=== PATIENT | female | born 1945 | race Caucasian/White ===

== ENCOUNTER 2016-11-05 07:27 | Inpatient (IN) | payer MEDICARE, MEDICAID ==
[2016-11-05] VITALS (16 sets, daily range): BP systolic 101–144; BP diastolic 62–102; PULSE 60–107; RESP 13–20; O2SAT 96–98
[~2016-11-05] VITALS: Ht 152.4 cm; Wt 52.4 kg
[~2016-11-05 07:27] MED LIST: AMLO10TA3 PO; CALC0.257 PO; ERGO500050 PO; FOLI0.8T2 PO; FUR20 PO
[2016-11-05 08:10] LABS: BASOPHILS % (AUTO) 0.4 % (0-3); MONOCYTES % (AUTO) 9.4 % (4-12); Mean Corpuscular Hemoglobin 30.7 pg (27.0-35.0); NEUTROPHILS % (AUTO) 78.6 % (40-74); Platelet Count 135 bil/L (150-400)
--- NOTE | 2016-11-05 08:18 | ED.REPORT ---
HPI-General Illness Date of Service Nov 05, 2016 ED Provider: Bee Loving MD Patient is a 71-year-old female with a history of CVA, end stage renal failure, HTN, dementia and bipolar from [facility] who reports to the ED via EMS due to aggressive behavior toward the staff. Patient presents alert and denies pain. Patient was discharged from the hospital over a month ago to [facility] assisted [facility]. She was sent to the ED today for evaluation of increasingly aggressive behavior. Nursing Notes Stated Complaint: BEHAVIORAL ISSUES Chief Complaint: General Complaint Nursing Notes Reviewed: Yes Allergies: Coded Allergies: Penicillins (Verified Allergy, Severe, ?, 11/05/16) Scheduled Amlodipine (Amlodipine) 10 Mg Tablet 10 MG PO DAILY Ascorbic Acid (Vitamin C) 250 Mg Tab.chew 250 MG PO DAILY Ferrous Sulfate (Ferrous Sulfate) 325 Mg Tablet 325 MG PO DAILY Hydroxyzine HCl (HydrOXYzine Hcl) 50 Mg Tablet 50 MG PO q [address] (Pantoprazole [address]) 40 Mg Tablet.dr 40 MG PO BID Sucralfate (Sucralfate) 1 Gm Tablet 1 GM PO q6 hours Scheduled PRN Acetaminophen (Acetaminophen) 325 Mg Capsule 325 MG PO q6 hours PRN PRN For Pain Bisacodyl (Dulcolax Rectal) 10 Mg Supp.rect 10 MG RC DAILY PRN PRN For Constipation Dextran 70/Hypromellose/Pf (Artificial Tears Drops) 1 Each Droperette 2 DROP BOTH_EYES prn PRN PRN dry eyes Magnesium Hydroxide (Milk of Magnesia) 400 Mg/5 Ml Oral.susp 400 MG PO DAILY PRN PRN For Constipation Na Phos,M-B/Na Phos,Di-Ba (Fleet Enema) 133 Ml Enema 133 ML RC DAILY PRN PRN For Constipation Ondansetron (Zofran) 4 Mg Tablet 4 MG PO q6 hours PRN PRN For Nausea General Time Seen by MD: 07:50 Chief Complaint Other (aggressive behavior) Hx Obtained From: Patient Arrived By: Ambulance Sudden in Onset?: Yes Onset Occurred: Just prior to arrival Symptom Duration: Since onset Severity: Current: No pain currently Recent Healthcare: Recent doctor visit, Recent hospitalization Similar Sx Previous: Yes Past Medical History Past Medical History Notes: Nephrology: Guru Araya duodenal ulcer 09/29 on EGD, normal colonoscopy Past Medical History Anxiety Probable dementia Renal failure - 14% function as of late August, Bipolar Reports: Hypertension Reports: Depression Past Surgical History left carpal tunnel release parathyroid surgery Reports: Appendectomy, Tonsillectomy Reports: Pacemaker insertion, Tubal ligation Smoking History Former Smoker Social History Alcohol Use: Denies alcohol use Drug Use: Denies drug use Ambulatory Status Independent Review of Systems per son: no problems with dementia at baseline reports VM visits with eval for bleeding prevoiusly Full Review of Systems GI: Denies: Abdominal pain Psychiatric: Reports: Hostile (aggressive behavior toward assisted living staff ) Complete sys rev & neg: except as marked. Physical Exam Vital Signs Vital Signs Date Time Temp Pulse Resp B/P Pulse Ox O2 Delivery O2 Flow Rate FiO2 11/05/16 13:38 60 13 118/67 11/05/16 13:00 60 17 123/92 Room Air 11/05/16 12:30 60 14 110/65 11/05/16 12:00 60 18 124/62 11/05/16 11:00 60 17 116/68 11/05/16 10:30 60 20 144/102 11/05/16 10:00 60 19 134/70 96 Room Air 11/05/16 09:30 62 19 138/76 98 Room Air 11/05/16 07:37 35.2 60 16 130/65 97 Room Air Initial VS: Reviewed Head / Eyes: Atraumatic, Normocephalic, PERRL ENT: Mucous membranes moist, Conjunctiva normal, No scleral icterus Neck: Supple, Non-tender, Full range of motion Respiratory: Breath sounds normal, Clear to auscultation, No respiratory distress Abdomen / GI: Soft, Non-tender, No guarding, No rebound, No distention Skin: Warm, Dry, No cyanosis General/Constitutional: Awake, Alert Alertness: Positive: Confused (doesn't know why she is at the hospital) Behavior: Positive: Aggressive pacemaker insertion site is clean Cardiovascular: Heart rate NL, Regular rhythm, Heart sounds NL, No gallop, No murmurs, No rubs Lower Ext Edema: Positive: Bilateral 1+ Interpretation & Diagnostics Interpretation & Diagnostics: chronically elevated creat, K and low h/h Lab Results Interpretation Result Diagram: 11/05/16 0755 11/05/16 0755 Test 11/05/16 07:50 11/05/16 07:55 11/05/16 10:30 Urine Color Straw (YELLOW) Urine Appearance Hazy (CLEAR,HAZY) Urine pH 6.0 (5.0-8.0) Urine Specific [place] 1.020 (1.003-1.035) Urine Protein 100mg/dL (NEG,TRACE) Urine Glucose (UA) Negativemg/dL (NEGATIVE) Urine Ketones Negativemg/dL (NEGATIVE) Urine Occult Blood Negative (NEGATIVE) Urine Nitrite Negative (NEGATIVE) Urine Bilirubin Negative (NEGATIVE) Urine Urobilinogen Normalmg/dL (NORMAL) Urine Leukocyte Esterase Negative (NEGATIVE) Urine RBC 0-2/hpf (0-2) Urine WBC 0-5/hpf (0-5) Urine Epithelial Cells Occasional/hpf (NONE-MOD) Urine Crystals Amorphous urates (NONE Urine Bacteria None/hpf (NONE-FEW) Urine Hyaline Casts Occasional/lpf (NONE) Urine Granular Casts None seen (NONE SEEN) Urine Waxy Casts None seen (NONE SEEN) Urine Red Blood Cell Casts None seen (NONE SEEN) Urine White Blood Cell Casts None seen (NONE SEEN) Urine Mucus None seen (None Seen) Urine Trichomonas None seen (NONE SEEN) Urine Yeast None (NONE SEEN) Urinalysis Comment Transitional epi Urine Culture Reflexed Not indicated White Blood Count 5.4th/mm3 (3.8-10.1) Red Blood Count 2.51mil/mm3 (3.90-5.20) Hemoglobin 7.7g/dL (12.0-15.6) Hematocrit 23.6% (35.0-46.0) Mean Corpuscular Volume 94.0fL (81-100) Mean Corpuscular Hemoglobin 30.7pg (27.0-35.0) Mean Corpuscular Hemoglobin Concent 32.6% (32.0-37.0) Red Cell Distribution Width 17.5% (12.3-15.4) Platelet Count 135bil/L (150-400) Neutrophils (%) (Auto) 78.6% (40-74) Lymphocytes (%) (Auto) 8.9% (14-46) Monocytes (%) (Auto) 9.4% (4-12) Eosinophils (%) (Auto) 2.0% (0-5) Basophils (%) (Auto) 0.4% (0-3) Sodium Level 136mEq/L (134-144) Potassium Level 6.1mEq/L (3.5-5.2) Chloride Level 106mEq/L (97-108) Carbon Dioxide Level 19mmol/L (18-29) Blood Urea Nitrogen 48mg/dL (8-27) Creatinine 3.65mg/dL (0.57-1.00) Estimat Glomerular Filtration Rate 18mL/min (>59) Glucose Level 90mg/dL (60-99) Lactic Acid Level 0.6mmol/L (0.4-2.0) Calcium Level 9.9mg/dL (8.5-10.1) Total Bilirubin 0.2mg/dL (0.0-1.2) Aspartate Amino Transf (AST/SGOT) 20U/L (0-50) Alanine Aminotransferase (ALT/SGPT) 17U/L (0-32) Alkaline Phosphatase 153U/L (25-165) Total Protein 5.3g/dL (6.4-8.4) Albumin 3.2g/dL (3.4-5.0) Troponin T 0.032ug/L (0.0-0.011) ECG Interpretation ECG Interpretation: paced Time: 08:01 Interpreted by: ED physician Normal ECG Interpretation: Normal rate (60) X-Ray Chest Interpretation Chest Xray Interpretation: IMPRESSION: No acute cardiopulmonary disease. Dictated by: Obdulio Galdamez [facility] Interpreted: Anisha Boston MD on 11/05/2016 at 9:27 Transcribed by: DON on 11/05/2016 at 9:27 View: Portable Interpretation / Wet Read by: Interpret - Radiologist Re-Eval/Medical Decision Med Decision/Clinical Course Discharge from the hospital over a month ago to [facility]. Sent to the emergency room by [facility] for evaluation of increasingly aggressive behavior. She has worsening renal failure with a creatinine up to 3.65 which is only minimally higher than her baseline. Hyperkalemia at 6.1 she has a paced EKG the EKG is not helpful in determining physiologic severity of her hyperkalemia. She has received fluid resuscitation IV calcium gluconate IV insulin and IV glucose. Chronically elevated troponin of 0.032 Acute on top of chronic anemia. Had been previously admitted for rectal bleeding. She denies rectal bleeding at this point the dementia is certainly part of her constellation of complaints. H/H 7.7 and 23.6. comparison is hbg 9.7 on 09/29 after in patient transfusions. Need to be admitted to follow the anemia see if she needs additional blood replacement, hyperkalemia and further evaluation of the renal dysfunction to see if she actually will need to be dialyzed at any point Time of Eval: 13:00 Patient Status: Condition unchanged Re-Evaluation/Progress Note: Pt rechecked. Informed pt of need for admission. Pt understands and agrees with plan for admission. All questions addressed. Consultation : Consulted With: Hospitalist Call Returned at: 15:20 Grey Inspector: Will see patient, Agrees with plan, Accepts admit Counseled Regarding: Diagnosis, Lab results, Need for admission Discharge & Departure Primary Impression: Hyperkalemia Additional Impressions: Anemia Anemia type: unspecified type Qualified Code: D64.9 - Anemia, unspecified Renal insufficiency Dementia Dementia type: unspecified type Dementia behavioral disturbance: with behavioral disturbance Qualified Code: F03.91 - Unspecified dementia with behavioral disturbance Duodenal bulb ulcer Ruled Out: UTI (urinary tract infection) Disposition: ADMITTED TO HOSPITAL Discharge Condition All VS Reviewed: Yes Condition: Stable Referrals: NOPCP (PCP) Scribe Attestation Portion of this note were transcribed by Leona Agarwal. I, Dr. Loving, personally performed the history, physical exam, and medical decision-making: I reviewed and confirmed the accuracy for the information in the transcribed note. Signed by: jeremy Tracy, 11/05/16 1350 Bee Loving MD Nov 05, 2016 08:18 LEONA AGARWAL Nov 05, 2016 08:32
[2016-11-05 08:48] LABS: APPEARANCE,URINE HAZY (CLEAR,HAZY); COLOR,URINE STRAW (YELLOW); OCCULT BLOOD,URINE NEGATIVE (NEGATIVE); UROBILINOGEN,URINE NORMAL (NORMAL)
--- NOTE | 2016-11-05 09:28 | DRSVH ---
PROCEDURE: X-RAY CHEST ONE VIEW, PORTABLE ([id number]) INDICATIONS: ALTERED MENTAL STATUS TECHNIQUE: One view of the chest was acquired. COMPARISON: [facility], CR, XR CHEST 1VW (PORTABLE), 09/27/2016, 15:33. FINDINGS: Surgical changes and devices: Stable positioning of dual chamber left cardiac pacer. Surgical clips again seen projected over the lower neck. Lungs and pleura: No pleural effusions or pneumothorax. Lungs are clear. Mediastinum: Mediastinal contours appear normal. Heart size is prominent. Bones and chest wall: No suspicious bony lesions. Overlying soft tissues appear unremarkable. IMPRESSION: No acute cardiopulmonary disease. Dictated by: Obdulio Galdamez [facility] Interpreted: Anisha Boston MD on 11/05/2016 at 9:27 Transcribed by: DON on 11/05/2016 at 9:27 Approved by: Anisha Boston M.D. on 11/05/2016 at 9:59
[2016-11-05] MEDS ORDERED: Insulin Human REGular-Omnicell 100 Unit/mL IV ONE (10:20)
[2016-11-05] MEDS ORDERED: Calcium GLUCOnate 10% (Gm) 1 Gm/10 mL Inj IVPUSH PRN (10:20)
[2016-11-05] MEDS ORDERED: 0.9% Sodium Chloride 1,000 ML IV ONE (10:20)
[2016-11-05] MEDS ORDERED: PANT40TA3 PO (13:43)
[2016-11-05] MEDS ORDERED: ACET325C PO (13:43)
[2016-11-05] MEDS ORDERED: DEXT1DRO8 BOTH_EYES (13:43)
[2016-11-05] MEDS ORDERED: ASCO250T7 PO (13:43)
[2016-11-05] MEDS ORDERED: BISA10SU61 RC (13:43)
[2016-11-05] MEDS ORDERED: MAGN400O4 PO (13:43)
[2016-11-05] MEDS ORDERED: SUCR1TAB PO (13:43)
[2016-11-05] MEDS ORDERED: ONDA4TAB6 PO (13:43)
[2016-11-05] MEDS ORDERED: HYDR50TA76 PO (13:43)
[2016-11-05] MEDS ORDERED: NA P133E23 RC (13:43)
[2016-11-05] MEDS ORDERED: FERR-83 PO (13:43)
[2016-11-05] MEDS ORDERED: Polyethylene Glycol (PEG) 17 Gm Powder PO PRN (15:55)
[2016-11-05] MEDS ORDERED: Ondansetron 2 mg/mL 2 mL Inj IVPUSH PRN (15:55)
[2016-11-05] MEDS ORDERED: Alum-Mag Hydrox-Simeth 30 mL Suspension PO PRN (15:55)
[2016-11-05] MEDS: Sodium Chloride LOK Flush 10 mL Syringe IVFLUSH SCH (16:48)
[2016-11-05 17:01] LABS: BASOPHILS % (AUTO) 0.2 % (0-3); EOSINOPHILS % (AUTO) 1.2 % (0-5); Mean Corpuscular Volume 94.8 fL (81-100); NEUTROPHILS % (AUTO) 82.6 % (40-74); Platelet Count 120 bil/L (150-400)
[2016-11-05] MEDS ORDERED: Dextrose 5% 0.45% NaCl 1,000 ML IV ONE (17:15)
--- NOTE | 2016-11-05 17:30 | PCM.HPMED ---
Subjective Date of Service Nov 05, 2016 Primary Provider: Admitting Physician: Primary Care Physician: Mis Attending Physician: Admit Status: From the Emergency Department Chief Complaint: Altered Mental Status Possible lower GI Bleed History of Present Illness: Patient is a 71-year-old female with a history of CVA, end stage renal failure, HTN, dementia and bipolar from [facility] who reports to the ED via EMS due to aggressive behavior toward the staff. Patient presents alert and denies pain. Patient was treated in hospital over a month ago for pulsatile bleeding duodenal ulcer, patient was transferred to [place] for surgical repair and later discharged to [facility] assisted [facility]. She was sent to the ED today for evaluation of increasingly aggressive behavior. Patient interviewed at bedside, patient stated that she was feeling bad and has not been treated well at [facility], she is hungry and wants to eat dinner. Additionally patient stated that she had a recent fall, 4 days ago, in her wheelchair where she hit the back of her head. Patient denies abdominal pain, diarrhea, shortness of breath, chest pain, nausea, vomiting. Review of Systems: ROS negative except as mentioned in HPI Allergies Coded Allergies: Penicillins (Verified Allergy, Severe, ?, 11/05/16) Home Medications Amlodipine 10 mg PO QD Furosemide 20 mg PO QD PMH Anxiety Probable dementia Renal failure - 14% function as of late August, Bipolar Hypertension Depression Surgical History left carpal tunnel release parathyroid surgery Appendectomy, Tonsillectomy Pacemaker insertion, Tubal ligation Family History No family history of DM, CVD, HTN Social History Occupation: retired Hx Alcohol Use: Yes (history of alcohol abuse, quit 28 years ago) Hx Substance Use: No Hx Tobacco Use: Yes (30 years smoking history, quit 2 years ago) Smoking Status: Former Smoker Exam Vital Signs Vital Sign - Last Date Time Temp Pulse Resp B/P Pulse Ox O2 Delivery O2 Flow Rate FiO2 11/05/16 13:38 60 13 118/67 11/05/16 13:00 Room Air 11/05/16 10:00 96 11/05/16 07:37 35.2 Exam General: Alert, Oriented X3, Confused, No Acute Distress Head: Normocephalic, atraumatic. External ears normal. Eyes: PERRLA, EOMI. Anicteric sclerae. Mucosa pink Mouth: Mouth Normal, Mucous Membranes dry/[place], dentures Neck: Neck supple with full range of motion. Non tender, no stiffness Chest & Lungs: Coarse breath sounds bilaterally with no crackles, wheezes, or rhonchi. Cardiovascular: Regular Rate/Rhythm, Normal S1, Normal S2, No Murmurs/Rubs/ Gallops Abdomen: Non-tender, Non-distended, No masses, Normoactive bowel tones, Soft Rectal: Multiple hemorrhoids visualized at 11 o'clock and 10 o'clock, no active bleeding noted Musculoskeletal: Normal Range of Motion, strength 5/5 all extremities Extremities: No cyanosis/clubbing/edema bilaterally Neurological: Grossly Neurologically Intact, Normal Speech, follows commands, Psych: Agitated, confused, labile mood, Lab and Diagnostics Result Diagram: 11/05/16 0755 11/05/16 0755 Assessment & Plan Patient is a 71 y.o. F presented to Admitted for treatment of altered mental status, r/o lower GI bleed. 1. Anemia, Present on admission, acute on chronic, ongoing - Patient has history of upper GI bleed, [facility] admitted to [facility] 09/24/16, treated surgically at [facility] - Considering DDx consider Diverticulosis, Upper GI bleed, r/o lower GI bleed Hgb 7.7 Hct 23 - Admit to hospital, SCDs for DVT prophylaxis, Keep patient NPO - Cross and type only - Repeat H/H Q4 after morning CBC - Repeat CBC w/ diff, BMP in AM - Given patient's history GI consulted 2. Acute on chronic Kidney injury, present on admission, ongoing - Stage IV- V kidney disease being followed by Dr. Araya, - Monitor I & O, patient currently making urine, 250 cc out in ED - UA, negative - repeat BMP in AM - Hold Furosemide and amlodipine until patient is stable - Patient's risk consulting treasury director is Dr. Araya, will Consult Nephrology, we appreciate input on this case. 3. Hyperglycemia, acute, present on admission - Likely related to acute on chronic kidney injury - Patient given Kayexalate in ED - Given 10 U insulin - repeat BMP ordered 4. Hypoglycemia, acute, present on admission - Patient BG in ED 41, given one half amp of D50, BG still low at 50 - Start D5 1/2 NS at 75 mls/hr, once 5. Elevated troponin, chronic, present on admission - Chronically elevated - Repeat trend troponin Q8 6. Chronic GERD, Present on admission - IV Pantoprazole 40 mg BID CODE STATUS: Discussed resuscitation status with patient, patient wishes to be full code. DVT prophylaxis: SCD, Patient status: Patient was admitted under inpatient status with expected length of stay greater than 2 midnights due to severity present in symptoms, risk of adverse event, and complexity of treatment plan. . Pain Evaluation: Adequate Pain Control VTE Mechanical Devices: Intermittant Pneumatic CD Resuscitation Status: CPR: Attempt Resuscitation Attending Statement The patient was seen and examined together with Dr. Callahan on 11/05/2016 and I agree with the history, exam and plan as outlined in the note above. . XAVIER CALLAHAN DO Nov 05, 2016 17:30 Og Villanueva MD Nov 06, 2016 17:21
--- NOTE | 2016-11-05 17:59 | PCM.CHPMED ---
Subjective Date of Service: Nov 05, 2016 Provider requesting consult: XAVIER CALLAHAN DO Primary Physician: Admitting Physician: Primary Care Physician: Mis Attending Physician: Chief Complaint: Chief Complaint: Confusion History of Present Illness: Mrs. Jody Harrell is a 71 year old lady with history of recent pacemaker insertion, CKD stage IV, dementia, hypertension, and depression, recent hospitalization in September for acute upper GI bleed who presents with altered mental status. She was staying at [facility] and began acting aggressively towards staff, and was brought to the ED. She was somewhat able to answer questions and denied nausea, vomiting, diarrhea, or abdominal pain. Vital signs were stable, Hb was 7.7 on arrival compared to 9.7 on discharge . Follow up Hb was 7.8 about 8 hours later. K was 6.1, BUN 48, Cr 3.65. Bilirubin and LFTs were normal. CXR was negative. Rectal exam in ED showed brown stool with no dark stool or blood. Guaiac negative. EGD on 09/29/16 showed a large, 2 cm duodenal first portion ulcer with recent stigmata of bleed and visible vessel/posterior duodenal bulb, status post argon plasma coagulation and Gold Probe thermocoagulation with a large, pulsatile vessel that was seen within the ulcer itself. Status post 3 cc gastrointestinal spot tattoo was deployed. Colonoscopy was normal with no blood seen in the terminal ileum. She was transported to [facility] for further treatment. Review of Systems: Comprehensive review of systems conducted and was negative except for the pertinent positives listed above. PMH Past Medical History Anxiety Probable dementia Renal failure - 14% function as of late August, Bipolar Hypertension Depression Surgical History left carpal tunnel release parathyroid surgery Appendectomy Tonsillectomy Pacemaker insertion Tubal ligation Allergies: Coded Allergies: Penicillins (Verified Allergy, Severe, ?, 11/05/16) Family History Family History No family history of DM, CVD, HTN Social History Hx Alcohol Use: Yes (history of alcohol abuse, quit 28 years ago)Hx Substance Use: NoHx Tobacco Use: Yes (30 years smoking history, quit 2 years ago) Smoking Status: Former Smoker Exam Vital Signs Vital Sign - Last Date Time Temp Pulse Resp B/P Pulse Ox O2 Delivery O2 Flow Rate FiO2 11/05/16 13:38 60 13 118/67 11/05/16 13:00 Room Air 11/05/16 10:00 96 11/05/16 07:37 35.2 Additional Information: General: Somnolent but arousable, Oriented X3, Cooperative, No Acute Distress Head: Normocephalic, atraumatic. External ears normal. Eyes: PERRLA, EOMI. Mouth: Mouth Normal, Mucous Membranes Dry Neck: Neck supple with full range of motion. Chest & Lungs: Clear to auscultation bilaterally with no crackles, wheezes, or rhonchi. Cardiovascular: Regular Rate/Rhythm, Normal S1, Normal S2, No Murmurs/Rubs/ Gallops Abdomen: Non-tender, Non-distended, No masses, Normoactive bowel tones, Soft. Vertical incision scar on upper abdomen. Extremities: No cyanosis/clubbing/edema bilaterally Neurological: Slurred speech, somnolent. Lab and Diagnostics Result Diagram: 11/05/16 1630 11/05/16 3095 Assessment & Plan Assessment Mrs. Jody Harrell is a 71 year old lady with history of recent pacemaker insertion, CKD stage IV, dementia, hypertension, and depression, recent hospitalization in September for acute upper GI bleed who presents with altered mental status. Possible acute on chronic anemia. - Hb was 7.7 on arrival, 7.8 after 8 hours. Previously 9.7 before transfer to [facility], but no records of what took place after the transfer. She presumably had a small bowel resection based on the plan and the new incision on her abdomen. Will obtain records. Rectal exam in ED showed brown stool, guaiac negative. She likely does not have an acute GI bleed based on this. Her anemia may be chronic iron deficiency combined with her Stage IV CKD. - Watch for signs of GI bleed - Protonix 40 mg IV daily - Consider nephrology consult and treatment with Epo - Iron panel - Trend H&H regularly. Transfuse if actively bleeding. - Ordered INR. Previous was 1.0 Altered mental status. - Pt presents with altered mental status and aggressive behavior. Normal LFTs and no history of liver disease, so hepatic encephalopathy is unlikely. UA negative. CXR negative. Infection unlikely. No home meds likely to cause altered mental status. Consider intracranial pathology. Agree with above. I have seen and examined the patient with the resident. Problems: Sravan Ordonez Nov 05, 2016 17:24 Osvaldo Jamil MD Nov 06, 2016 13:41
[2016-11-05 18:05] LABS: INR 0.95 ratio
[2016-11-05] MEDS ORDERED: Sodium Bicarb 8.4% (10 mEq) 1 mEq/mL 10 mL Syringe IVPUSH ONE ×2 (18:05→22:50)
[2016-11-05] MEDS ORDERED: Albuterol 2.5 mg/3 mL Inhalation Solution NEB ONE (18:05)
[2016-11-05] MEDS ORDERED: Furosemide 10 mg/mL 4 mL Inj IVPUSH ONE ×2 (18:10→22:50)
--- NOTE | 2016-11-05 18:25 | DRSVH ---
PROCEDURE: CT BRAIN WITHOUT CONTRAST ([id number]) INDICATIONS: altered mental status, reported fall TECHNIQUE: Noncontrast 4.5 mm thick angled axial sections acquired from the foramen magnum to the vertex, with c oronal reformats. COMPARISON: [facility], CT, CT BRAIN WO CON, 07/22/2016, 2:04. FINDINGS: Image quality: Excellent. CSF spaces: Basal cisterns are patent. No extra-axial fluid collections. The ventricles are symmet ariana in size and shape. Brain: No intracranial bleeds or masses. There is cerebral volume loss for age, with resultant vent ricular and sulcal prominence. There are periventricular and deep white matter chronic small vessel ischemic changes. There is intracranial internal carotid artery atherosclerosis. Prior medial left occipital posterior stroke, no acute disease. No change control manager time. Skull and face: Calvarium and visualized facial bones appear intact, without suspicious lesions. Sinuses: Visualized sinuses and mastoids are clear. IMPRESSION: No trauma found. Moderate microvascular atherosclerotic change within the deep white ma tter of each hemisphere and an old posterior medial left occipital stroke is again seen. Source of n ew altered mental status is not identified. Dictated by: Raudel Barajas M.D. on 11/05/2016 at 18:22 Approved by: Raudel Barajas M.D. on 11/05/2016 at 18:23
--- NOTE | 2016-11-05 18:45 | NUR ---
ADMIT Pt brought onto floor via gurney at 1815. Belongings recorded and placed bedside. Tele attached: AVPaced 60. Report received from Sylwia Fair RN in ED. Pt sleeping, no s/sx of distress. Periodically wakes up but back to sleep in a moment. C/o being hungry. Currently NPO status. Checking Blood glucose for hypoglycemia. BG reading at 66, gave 25 mL D50 syringe. Reporting all information in shift report to continue care.
[2016-11-05] MEDS: FAMOTIDINE IV SCH (21:16)
[2016-11-05] MEDS: SODIUM CHLORIDE 0.9% IV SCH (21:16)
--- NOTE | 2016-11-05 21:37 | CONS ---
[address] [address] CONSULTATION REPORT PATIENT: AMELIE CEDEÑO : 1945 MR#: [id number] ADMIT: 11/05/2016 JOB ID: [id number] DATE OF SERVICE: REQUESTING PHYSICIAN: Dr. Villanueva. REASON FOR CONSULTATION: Management of chronic kidney disease and hyperkalemia. CHIEF COMPLAINT: Altered mental status. PRESENT ILLNESS: This is a 71-year-old, female, with a significant past medical history of chronic kidney disease stage 5, hypertension, dementia, bipolar, GI bleed, presented to the emergency room due to aggressive behavior toward the staff at the longterm. The patient was recently admitted at the [facility] between September 24 and September 29 due to acute upper GI bleed. The patient underwent EGD with biopsy, APC, and Gold probe thermocoagulation. Colonoscopy and flexible sigmoidoscopy were performed as well. Unfortunately, she had active bleeding and required large amount of blood transfusion. Later on, she underwent exploratory laparotomy. Apparently there was no active bleeding identified. Hence, she was transferred to Care. I am not certain whether she was transferred to [place] or [facility]. We are pending for the medical record. Afterwards, she was discharged to [facility]. Apparently today she was found to have aggressive behavior towards the staff at her Assisted Living. The patient was then brought to the emergency department for further investigation. Her initial blood work showed hemoglobin of 7.7, potassium of 6.1, creatinine of 3.65, bicarb of 19. The patient is well known to renal service. She has chronic kidney disease related to chronic interstitial nephritis from long-term lithium use. The patient has not started on any type of renal replacement therapy. During my visit in the emergency department, patient was very lethargic, oriented x1. Unable to give straight answers but able to follow commands. She does not appear to be in acute distress. PAST MEDICAL HISTORY: 1. Chronic kidney disease stage 5 secondary to chronic interstitial nephritis from lithium use. 2. Bipolar disorder. 3. Anxiety. 4. Dementia. 5. GI bleed, status post endoscopy and exploratory laparotomy. 6. Depression. SURGICAL HISTORY: 1. Status post exploratory laparotomy. 2. Parathyroidectomy. 3. Appendectomy. 4. Tonsillectomy. 5. Pacemaker placement. 6. Colectomy. 7. Pacemaker placement. 8. Tubal ligation. 9. Left carpal tunnel release. FAMILY HISTORY: No kidney disease in the family. SOCIAL HISTORY: Patient is a former smoker. She lives at the [facility]. ALLERGIES: PENICILLIN. REVIEW OF SYSTEMS: Unable to obtain. PHYSICAL EXAMINATION: VITALS: Temperature 35.2, pulse 61, respiratory 17, blood pressure 101/63. General appearance: Drowsy but arousable. Follows commands. Oriented x1. HEENT: Mild pallor. No jaundice. No JVD. No lymphadenopathy. No thyroid enlargement. Dry mucous membrane. Heart: Regular rhythm. Normal S1, S2. No murmurs, rubs, or gallops. Lungs: Positive for rhonchi bilaterally. Positive or coarse crackles at the bases. Abdomen: Soft, active bowel sounds. Nontender, nondistended. Surgical scar dry, clean and intact. Extremity: Trace edema on the lower extremities. LABORATORY: Sodium 136, potassium 6.0, chloride 104, bicarb 16, BUN 48, creatinine 3.58. Sugar 89, calcium 10.1. ASSESSMENT: 1. Chronic kidney disease stage 5 secondary to chronic interstitial nephritis. 2. Hyperkalemia. 3. Anion gap metabolic acidosis secondary to uremia. 4. Anemia with significant history of GI bleed. 5. Bipolar disorder. 6. Depression. 7. Dementia. 8. Hypercalcemia. PLAN: We will start medical management for hyperkalemia. Will give her Kayexalate 15 g once. The patient has received IV regular insulin and dextrose 50 g in the emergency department. I will recommend to give her albuterol 10 mg nebulizer x1. Will give one dose of IV Lasix 40 mg to enhance the potassium excretion. Once she is more awake and alert will discuss with her regarding initiation of hemodialysis and tunneled catheter placement. Will order iron panel, check vitamin D, PTH level. Will check calcium and phosphorus in the morning.
--- NOTE | 2016-11-05 22:52 | NUR ---
Potassium PT had orders from earlier in the day for sodium bicarb and Lasix to help lower the potassium, since then Albuterol 10mg Neb was given, filing writer contacted Dr. Watkins to recheck potassium before giving bicarb and lasix, the potassium came back higher at 6.3. Video Surveillance Technician received orders to continue with the bicarb and lasix as ordered previously.
[2016-11-05] MEDS ORDERED: Sodium Bicarb (50 mEq) 8.4% 1 mEq/mL 50 mL Syringe IVPUSH ONE (23:05)
--- NOTE | 2016-11-05 23:53 | NUR ---
Transfer of care This RN resumed care at 2300. Pt denies having pain. IV patent in LFA. bed in low position, 3 rails up, call light near pt. MP30 (Peds 3) on for monitoring.
[2016-11-06] VITALS (10 sets, daily range): BP systolic 88–145; BP diastolic 53–90; PULSE 60–67; RESP 14–20; O2SAT 92–97
[2016-11-06 06:34] LABS: Magnesium 3.3 mg/dL (1.6-2.6); Phosphorus 3.9 mg/dL (2.5-4.9)
[2016-11-06 08:49] LABS: BASOPHILS % (AUTO) 0.2 % (0-3); EOSINOPHILS % (AUTO) 0.2 % (0-5); MONOCYTES % (AUTO) 7.1 % (4-12); Mean Corpuscular Hemoglobin 30.1 pg (27.0-35.0); Mean Corpuscular Volume 96.3 fL (81-100); Platelet Count 109 bil/L (150-400)
[2016-11-06] MEDS ORDERED: 0.9% Sodium Chloride 250 ML ONE (10:05)
[2016-11-06] MEDS: Sodium Chloride LOK Flush 10 mL Syringe IVFLUSH SCH ×4 (12:15→22:58)
[2016-11-06] MEDS: SODIUM CHLORIDE 0.9% IV SCH (12:15)
[2016-11-06] MEDS: FAMOTIDINE IV SCH (12:15)
--- NOTE | 2016-11-06 12:19 | NUR ---
Evaluation completed. Please go to "Notes" then click on "Assessments and Notes" (bottom left corner of screen). Then select appropriate discipline tab on top of screen.
--- NOTE | 2016-11-06 12:49 | NUR ---
Social Work-initial assessment: Data:See initial assessment. Pt is a 71 y/o female who was admitted on 11/05/16 for hyperkalemia per H&P. Pt's insurance is [employer] and [employer] supp and PCP is Not listed. EMR Reviewed. pt's readmission score is 3-high risk. Pt comes to hospital from [facility]. KRISTIN spoke with [facility] admissions [phone] who confirms pt has been at [facility] for rehab stay. Pt has no prior services. Pt does not drive. Pt's DPOA/advanced directive paperwork are in the pt's chart. [facility] is willing to accept pt back at discharge, access given. KRISTIN placed a call to pt's son Angel Harrell [phone] and left message requesting a return call. Paperwork in the chart. SW will continue to follow. Assessment:pt who has been at SNF. Plan:Pt to likely discharge back to [facility] with Dr. Ramsay to follow. KRISTIN has left message with son Angel Harrell [phone].Paperwork in the chart. SW will continue to follow. LEON Bernardo Addendum: 11/06/16 at 1251 by SATINDER PATTON SS Amended: Links added. Addendum: 11/06/16 at 1535 by SATINDER PATTON SS KRISTIN spoke with pt's son Erik. Ortiz in agreement with plan of pt to discharge back to [facility] when medically stable. KRISTIN provided son with SW phone number. KRISTIN will continue to follow. LEON Bernardo
--- NOTE | 2016-11-06 12:52 | NUR ---
[facility] will accept pt back with Dr. Love to follow. LEON Bernardo
--- NOTE | 2016-11-06 15:05 | PCM.PNMED ---
Subjective Date of Service Nov 06, 2016 Subjective Patient was not aggressive during encounter. However stated that "I do not want to take pills", "you do not want to give me any medicine, do you" denied any abdominal pain, alert and be aware this is hospital H&H dropped so 2units RBC ordered Exam Vital Signs Vital Sign - Last Date Time Temp Pulse Resp B/P Pulse Ox O2 Delivery O2 Flow Rate FiO2 11/06/16 09:53 35.7 64 16 131/69 97 Room Air Intake and Output 11/05/16 11/05/16 11/06/16 Cumulative From/Thru 15:00 23:00 07:00 11/05/16 07:37 - 11/06/16 04:42 Intake Total 786 ml 786 ml Balance 786 ml 786 ml IV Total 786 ml 786 ml Exam NAD, comfortably laying down on the bed no JVD, MMM, no LAD RRR, nl s1, s2 no mrg By basilar crackles, no wheezing S,ND,NT,normoactive BS+ warm, trace edema, pulses 2/2 IVs and Medications Medications Reviewed: Medications were reviewed in detail Lab and Diagnostics Result Diagram: 11/06/1635 11/06/16 0835 Assessment & Plan Patient is a 71 y.o. F presented to Admitted for treatment of altered mental status, r/o lower GI bleed. acute, active #Acute encephalopathy, POA, reported aggressive behaviors and mcfp, currently calm, ddx delirium vs uremic encephalopathy, seemed at baseline #Anemia, Present on admission, acute on chronic, Patient has history of upper GI bleed with very high risk rebleeding risk with arterial bleeding, last admitted to [facility] 09/24/16, per initialy admi note, pt was treated surgically at [facility], presumably SB resection, reported FOBT negative per GI consult on admission at this time. currently no signs of active bleeding, repeat h/h mildly dropped to 7.0 this AM -appreciate GI recs, currently no plan for intervention -transfuse target hgb>7 #hyperkalemia, KAMILLE on CKD, present on admission, Stage IV- V kidney disease being followed by Dr. Araya in the clinic. [id number] stable. K stable s/p cocktails for hyperkalemia, d5/insulin/neb/kayaxlate on admission. - Held Furosemide and amlodipine on admission, will give 40mg iv lasix after transfusion -Appreciate nephrology input regarding initiation of HD -trend K, eGFR, avoid renal toxin, #hypothermia, hypoglycemia, acute, present on admission, Patient BG in ED 41, s/ p multiple D50, followed by D5 1/2 NS at 75 mls/hr, unclear etiology so far. -fluid stopped, will check TFT, random cortisol chronic, stable, 5. Elevated troponin, chronic, present on admission, Chronically elevated in the setting of CKD, 6. Chronic GERD, Present on admission, continue pepcid q24h CODE STATUS: Discussed resuscitation status with patient, patient wishes to be full code. DVT prophylaxis: SCD, diet: renal, dysphagia mechanical, advance as tolerate dispo: likely 2-3more days until clinically more stable VTE Mechanical Devices: Venous Foot Pump Time spent 35 minutes Rubia Sales MD Nov 06, 2016 12:13
--- NOTE | 2016-11-06 16:04 | PCM.PNMED ---
Subjective Date of Service Nov 06, 2016 Subjective Hb dropped to 6.6, K 5.1 She agreed to proceed with HD if needed. Exam Vital Signs Vital Sign - Last Date Time Temp Pulse Resp B/P Pulse Ox O2 Delivery O2 Flow Rate FiO2 11/06/16 13:51 34.0 61 20 104/53 11/06/16 13:14 97 Room Air Intake and Output 11/05/16 11/05/16 11/06/16 Cumulative From/Thru 15:00 23:00 07:00 11/05/16 07:37 - 11/06/16 04:42 Intake Total 786 ml 786 ml Balance 786 ml 786 ml IV Total 786 ml 786 ml Exam GA: AAOx3, NAD. HEENT: Mild pallor. No jaundice. No JVD. No lymphadenopathy. No thyroid enlargement. Dry mucous membrane. Heart: Regular rhythm. Normal S1, S2. No murmurs, rubs, or gallops. Lungs: Positive for rhonchi bilaterally. Positive or coarse crackles at the bases. Abdomen: Soft, active bowel sounds. Nontender, nondistended. Surgical scar dry, clean and intact. Extremity: Trace edema on the lower extremities. Lab and Diagnostics Result Diagram: 11/06/16 1245 11/06/16 0835 Assessment & Plan 1. Chronic kidney disease stage 5 secondary to chronic interstitial nephritis. 2. Hyperkalemia. 3. Anion gap metabolic acidosis secondary to uremia. 4. Anemia with significant history of GI bleed. 5. Bipolar disorder. 6. Depression. 7. Dementia. 8. Hypercalcemia. PLAN: discussed in length with her son. he and the patient agreed to proceed with initiation of HD and tunneled cath placement. NPO AMN for tunneled cath in am. SW consult for OP HD arrangement. VTE Mechanical Devices: Venous Foot Pump Danielle Rodgers MD Nov 06, 2016 16:04
--- NOTE | 2016-11-06 18:29 | PCM.PNMED ---
Subjective Date of Service Nov 06, 2016 Subjective Pt complained of feeling dizzy this morning, but had no other physical complaints. She repeatedly stated that she wasn't going to take any medications , however. Exam Vital Signs Vital Sign - Last Date Time Temp Pulse Resp B/P Pulse Ox O2 Delivery O2 Flow Rate FiO2 11/06/16 17:41 35.4 67 18 145/72 95 Room Air Intake and Output 11/05/16 11/05/16 11/06/16 Cumulative From/Thru 15:00 23:00 07:00 11/05/16 07:37 - 11/06/16 04:42 Intake Total 786 ml 786 ml Balance 786 ml 786 ml IV Total 786 ml 786 ml Exam General: Alert, Oriented X3, Cooperative, No Acute Distress Head: Normocephalic, atraumatic. External ears normal. Eyes: PERRLA, EOMI. Mouth: Mouth Normal, Mucous Membranes Dry Neck: Neck supple with full range of motion. Chest & Lungs: Clear to auscultation bilaterally with no crackles, wheezes, or rhonchi. Cardiovascular: Regular Rate/Rhythm, Normal S1, Normal S2, No Murmurs/Rubs/ Gallops Abdomen: Non-tender, Non-distended, No masses, Normoactive bowel tones, Soft. Vertical incision scar on upper abdomen. Extremities: No cyanosis/clubbing/edema bilaterally Neurological: Neurologically intact. Lab and Diagnostics Result Diagram: 11/06/16 1245 11/06/16 0835 Assessment & Plan Mrs. Jody Harrell is a 71 year old lady with history of recent pacemaker insertion, CKD stage IV, dementia, hypertension, and depression, recent hospitalization in September for acute upper GI bleed who presents with altered mental status. Possible acute on chronic anemia. - Hb was 7.7 on arrival, 7.8 after 8 hours. Dropped to 6.6 overnight but still no sign of an acute GI bleed, as she has not vomited or passed stool. She had arterial embolization at [facility] following transfer on previous admission , targeting the bleeding ulcer. No surgical intervention was performed. This may be rebleeding from the previous ulcer. Iron panel mostly normal, ferritin 542. INR 0.95. - Watch for signs of GI bleed - Protonix 40 mg IV daily - Trend H&H regularly. Transfuse if actively bleeding. - Will schedule for upper endoscopy tomorrow. VTE Mechanical Devices: Intermittant Pneumatic CD Resuscitation Status: CPR: Attempt Resuscitation Sravan Ordonez Nov 06, 2016 18:29
[2016-11-06] MEDS ORDERED: Furosemide 10 mg/mL 4 mL Inj IVPUSH PRN (18:35)
--- NOTE | 2016-11-06 18:52 | NUR ---
Blood Transfusion Critical Lab Value called in, charge nurse received- recorded and paged MD. Hgb 6.6, Hct 21.1. MD ordered for 1 Unit PRBC. No consent form signed/pt very confused, multiple attempts to call son (DPOA) with no answer. Blood returned to bank within 30 min. Son contacted, verbal/telephone consent obtained. Son came to unit and signed consent form for blood transfusion, placed in chart. Repeat H&H obtained, Hgb 7.0, Hct 21.6. paged, orders to give 1 unit PRBC. Order for IVPush 40Mg Lasix 4 hours post transfusion. Pt stable for transfusion, no change in VSS. Report given to next shift.
[2016-11-06 19:02] LABS: Mean Corpuscular Hemoglobin 29.7 pg (27.0-35.0); Mean Corpuscular Volume 92.7 fL (81-100)
[2016-11-07] VITALS (16 sets, daily range): BP systolic 86–142; BP diastolic 49–75; PULSE 60–95; RESP 17–22; O2SAT 92–100
[2016-11-07 05:40] LABS: BASOPHILS % (AUTO) 0.2 % (0-3); EOSINOPHILS % (AUTO) 1.3 % (0-5); MONOCYTES % (AUTO) 7.7 % (4-12); Mean Corpuscular Hemoglobin 29.9 pg (27.0-35.0); Mean Corpuscular Volume 93.1 fL (81-100); NEUTROPHILS % (AUTO) 83.1 % (40-74); Platelet Count 124 bil/L (150-400)
[2016-11-07 06:06] LABS: Magnesium 3.3 mg/dL (1.6-2.6); Phosphorus 4.3 mg/dL (2.5-4.9)
--- NOTE | 2016-11-07 06:41 | NUR ---
Dark BM, Mentation: Pt did have a dark formed BM tonight, it was flushed so a guaiac was not sent. Pt is alert and oriented to self, place, and year. Was calling out for help everytime staff would leave the room early in the shift, has been able to sleep several hours at a time through the night, calling out only when needing the bathroom. Pt is aware of NPO status.
[2016-11-07] MEDS ORDERED: FAMOTIDINE IV SCH (08:30)
[2016-11-07] MEDS ORDERED: SODIUM CHLORIDE 0.9% IV SCH (08:30)
[2016-11-07] MEDS: Sodium Chloride LOK Flush 10 mL Syringe IVFLUSH SCH ×3 (09:47→21:24)
[2016-11-07] MEDS ORDERED: Furosemide 10 mg/mL 10 mL Inj IVPUSH ONE (10:25)
[2016-11-07] MEDS ORDERED: Propofol 10,000 mCg/mL 20 mL Inj ONE (11:17)
[2016-11-07] MEDS ORDERED: Dextrose 50% Water 50 mL Inj IV ONE ×2 (11:50→14:29)
[2016-11-07] MEDS ORDERED: Insulin Human REGular 300 Unit/3 mL Inj SUBQ ONE (11:50)
--- NOTE | 2016-11-07 11:50 | PCM.PNMED ---
Subjective Date of Service Nov 07, 2016 Subjective I discussed with her son (Angel) over the phone in regards to initiating hemodialysis. He gave me a verbal consent and allowed us to proceed with tunneled cath placement. (+) dark BM per nurse note. Pt stated today "I don't feel right" She received pne unit of PRBC yesterday. Hb 8.7 She now has bibasilar rales, O2 94%, some difficultly breathing. Exam Vital Signs Vital Sign - Last Date Time Temp Pulse Resp B/P Pulse Ox O2 Delivery O2 Flow Rate FiO2 11/07/16 09:51 36.7 61 22 140/68 94 Room Air Intake and Output 11/06/16 11/06/16 11/07/16 Cumulative From/Thru 15:00 23:00 07:00 11/05/16 07:37 - 11/07/16 06:33 Intake Total 0 ml 650 ml 300 ml 1736 ml Output Total 1150 ml 1475 ml 2100 ml 4725 ml Balance -1150 ml -825 ml -1800 ml -2989 ml Intake Oral 0 ml 0 ml 300 ml 300 ml IV Total 200 ml 986 ml Packed Cells 450 ml 450 ml Output Urine Total 1150 ml 1475 ml 2100 ml 4725 ml # Bowel Movements 0 1 1 Exam GA: AAOx3, NAD. HEENT: Mild pallor. No jaundice. No JVD. No lymphadenopathy. No thyroid enlargement. Dry mucous membrane. Heart: Regular rhythm. Normal S1, S2. No murmurs, rubs, or gallops. Lungs: bibasilar rales, expiratory wheezes. Abdomen: Soft, active bowel sounds. Nontender, nondistended. Surgical scar dry, clean and intact. Extremity: Trace edema on the lower extremities. Lab and Diagnostics Result Diagram: 11/07/1651111/07/16511 Assessment & Plan 1. Chronic kidney disease stage 5 secondary to chronic interstitial nephritis. 2. Hyperkalemia. 3. Anion gap metabolic acidosis secondary to uremia. 4. Anemia with significant history of GI bleed and CKD5. s/p blood transfusion. 5. Bipolar disorder. 6. Depression. 7. Dementia. 8. Hypercalcemia. PLAN: tunneled cath placement and HD today. I discussed with her son (Angel) over the phone in regards to initiating hemodialysis. He gave me a verbal consent and allowed us to proceed with tunneled cath placement and HD. IV lasix 80 mg x 1, NC 2L/m, CXR. Aranesp IV with HD today. VTE Mechanical Devices: Intermittant Pneumatic CD Resuscitation Status: CPR: Attempt Resuscitation Danielle Rodgers MD Nov 07, 2016 11:49
[2016-11-07] MEDS ORDERED: Ketamine 10 mg/mL 20 mL Inj ONE (12:00)
[2016-11-07] MEDS ORDERED: Insulin Human REGular 300 Unit/3 mL Inj IV ONE (12:30)
[2016-11-07] MEDS ORDERED: Darbepoetin Alfa (ESRD) 60 mCg/0.3 mL Inj IV ONE (12:50)
[2016-11-07] MEDS ORDERED: Pantoprazole 4 mg/mL 10 mL Inj IVPUSH ONE (13:20)
--- NOTE | 2016-11-07 13:25 | DRSVH ---
PROCEDURE: X-RAY CHEST ONE VIEW, PORTABLE ([id number]) INDICATIONS: difficulty breathing TECHNIQUE: One view of the chest was acquired. COMPARISON: [facility], CR, XR CHEST 1VW (PORTABLE), 09/13/2016, 23:29. Located within [facility], CR, XR CHEST 1VW (PORTABLE), 11/05/2016, 7:47. FINDINGS: Surgical changes and devices: Stable positioning of dual chamber left cardiac pacer. Surgical clips again seen projected over the lower neck. Lungs and pleura: No pleural effusions or pneumothorax. Airspace opacity increase involving the rig ht lung base otherwise lungs are clear.. Mediastinum: Mediastinal contours appear normal. Heart size is enlarged. Bones and chest wall: No suspicious bony lesions. Overlying soft tissues appear unremarkable. IMPRESSION: Right basilar atelectasis versus aspiration or pneumonia. Dictated by: Obdulio Galdamez RRA Interpreted: Anisha Boston MD on 11/07/2016 at 13:24 Transcribed by: DON on 11/07/2016 at 13:25 Approved by: Anisha Boston M.D. on 11/07/2016 at 16:56
[2016-11-07] MEDS ORDERED: Dextrose 5% 1,000 ML IV SCH (13:45)
[2016-11-07] MEDS ORDERED: Heparin 5,000 Units/500 mL NS Premix IV ONE (13:46)
[2016-11-07] MEDS ORDERED: Heparin 1,000 Unit/mL 10 mL Inj ONE (13:46)
[2016-11-07] MEDS ORDERED: 0.9% Sodium Chloride 500 ML ONE (13:46)
--- NOTE | 2016-11-07 13:54 | NUR ---
insulin/d50, blood sugars Pt's BG this michaelg 64, NPO, no noted hx of diabetes. Pt asymptomatic. Potassium 5.5. Orders to give 1 amp (50ml) D50, and 5 units regular insulin IV to decrease potassium. IV D50 given per orders, BG rechecked about 15 minutes after and up to 195. Regular insulin 5 units then given IV per MD orders, rechecked BG after 15 minutes again and BG 138, then another 15-20 minutes later was 58 then 47. MD notified and new order to give d50 1 amp IV again. 50ml D50 given per orders. Pt still arousable to voice. BG rechecked was 187 and 119. Will continue to recheck. Addendum: 11/07/16 at 1400 by RICHARD SAMUEL RN D5@ 80ml/hr started IV per orders. Addendum: 11/07/16 at 1413 by RICHARD SAMUEL RN 3rd amp d50 (50ml) given for continued BG drop 78, 54. MD notified, labor expediter here to bring pt to labor expediter for ordered tunnel cath placement, new orders for D10 IV, will hang when available. Addendum: 11/07/16 at 1422 by RICHARD SAMUEL RN D10 started per orders at 100ml/hr. BG rechecked and was 181. Bedside report to Miya Mckenzie RN from labor expediter. Pt transferred to labor expediter via bed with labor expediter RN. Sent with glucometer and test strips so they may continue to monitor BG's there. Addendum: 11/07/16 at 1425 by RICHARD SAMUEL RN Pt transfered to labor expediter at 1420.
[2016-11-07] MEDS: Dextrose 10% 1,000 ML IV SCH (14:17)
--- NOTE | 2016-11-07 14:27 | PCM.PNMED ---
Subjective Date of Service Nov 07, 2016 Subjective Patient was seen in bed this morning, she states generically that she doesn't feel very good, but has no specific complaints. She has been NPO since midnight in preparation for tunnel cath placement for HD and also an Endoscopy procedure with GI. Exam Vital Signs Vital Sign - Last Date Time Temp Pulse Resp B/P Pulse Ox O2 Delivery O2 Flow Rate FiO2 11/07/16 06:20 36.4 81 18 130/75 94 Room Air Intake and Output 11/06/16 11/06/16 11/07/16 Cumulative From/Thru 15:00 23:00 07:00 11/05/16 07:37 - 11/07/16 06:33 Intake Total 0 ml 650 ml 300 ml 1736 ml Output Total 1150 ml 1475 ml 2100 ml 4725 ml Balance -1150 ml -825 ml -1800 ml -2989 ml Intake Oral 0 ml 0 ml 300 ml 300 ml IV Total 200 ml 986 ml Packed Cells 450 ml 450 ml Output Urine Total 1150 ml 1475 ml 2100 ml 4725 ml # Bowel Movements 0 1 1 Exam General: Alert and oriented to self and person, appears in NAD HEENT: Mucosa pink and moist, sclera anicteric Neck: Neck supple with full range of motion. Non tender, no stiffness Chest & Lungs: Coarse breath sounds, rhonchi noted R>L. normal respiratory effort. Cardiovascular: RRR with soft systolic murmur noted Abdomen: Non-tender, Non-distended, No masses, Normoactive bowel tones, Soft Musculoskeletal: Moves all extremities Extremities: No cyanosis/clubbing/edema bilaterally, trace peripheral edema noted. Neurological: Speech is slow and disoriented Psych: Labile mood, tangential at times. IVs and Medications Medications Reviewed: Medications were reviewed in detail Lab and Diagnostics Result Diagram: 11/07/1651111/07/16511 Assessment & Plan Patient is a 71-year-old female with a history of CVA, ESRD not on dialysis, HTN , dementia, and bipolar d/o who arrived to the ED via EMS from [facility] due to increasing aggressive behavior. She is admitted for her AMS and also a workup for profound anemia present on admission. acute, active #Acute encephalopathy, POA, improving Reported aggressive behaviors on top of her baseline dementia at the correction, Ddx delirium vs uremic encephalopathy She is pleasant today and is alert, but is not very coherent in her speech at times. She does not remember talking to any of the specialists about her planned procedures today. #Anemia, POA, acute on chronic, stable Patient has history of upper GI bleed with arterial bleeding, last admitted to [facility] 09/24/16. Had embolization at [facility] -appreciate GI recs, Planning for endoscopy procedure today -H&H stable today. -transfuse target hgb>7 #Hypothermia, hypoglycemia, acute, POA Patient BG in ED 41, s/p multiple D50, followed by D5 1/2 NS at 75 mls/hr, unclear etiology so far. -fluid stopped, will check TFT, random cortisol -She was also hypoglycemic this morning in the 60s. Given 1 amp of D50 to help with hypoglycemia, but since she is also mildly hyperkalemia, will add 5 units of regular insulin IV to help decrease hyperkalemia also. #Hyperkalemia, POA, S/p cocktails for hyperkalemia, d5/insulin/neb/kayaxlate on admission. K was 5.5 today. Treat as above #KAMILLE on Chronic Kidney Disease, POA Stage IV kidney disease being followed by Dr. Araya in the clinic. [id number] stable. -Held Furosemide and amlodipine on admission -Appreciate nephrology input regarding initiation of HD, Patient will be receiving tunnel cath today -trend K, eGFR, avoid renal toxin, chronic, stable, 5. Elevated troponin, chronic, present on admission, Chronically elevated in the setting of CKD, 6. Chronic GERD, Present on admission, continue pepcid q24h CODE STATUS: Discussed resuscitation status with patient, patient wishes to be full code. DVT prophylaxis: SCD, diet: renal, dysphagia mechanical, advance as tolerate dispo: likely 2-3more days until clinically more stable Pain Evaluation: Adequate Pain Control VTE Mechanical Devices: Intermittant Pneumatic CD Resuscitation Status: CPR: Attempt Resuscitation Attending Statement Patient was seen and evaluated with Dr. Humphries on 11/07/2016. I agree with the findings, assessment and plan of care as noted above. Rakan Humphries DO Nov 07, 2016 07:53 Abran Wilde MD Nov 08, 2016 13:07
[2016-11-07] MEDS ORDERED: 0.9% Sodium Chloride 500 ML IV ONE (14:28)
--- NOTE | 2016-11-07 15:32 | DRSVH ---
PROCEDURE: CV TUNNEL CATH PLCMNT 1. Sonographic guidance for venous access. 2. Conscious sedation for 23 minutes. 3. Right internal jugular vein tunneled hemodialysis catheter placement. 4. Fluoroscopic guidance for catheter placement. INDICATIONS: RENAL DX TECHNIQUE: The indications, alternatives, benefits, risks, and complications of the procedure were e xplained to the patient and any family members present. Informed written consent was obtained and pl aced in the chart. The patient was brought to the angiography suite, and conscious sedation was admi nistered intravenously by group home staff, while continuous cardiorespiratory monitoring was pe rformed. Maximum sterile barrier technique was employed per standard protocol, including hand hygiene, cap, ma sk, sterile gown and gloves, and 2% chlorhexidine. Sterile ultrasound probe cover was also utilized. 1% lidocaine was used for local anaesthesia. Under sonographic guidance, the right internal jugular vein was accessed with a Micropuncture set. An 0.035J wire was advanced into the vena cava. Subcuta neous tunnel was created within the right anterior chest wall, through which a 14.5 Kiswahili double lum en tunneled hemodialysis catheter was advanced. Following sequential venotomy tract dilation, the ca theter was advanced through the peel-away sheath and the tip was placed at the cavoatrial junction. Peel-away sheath was removed. Adequate flow was obtained through both lumens of the catheter. The v enotomy was closed with Vicryl, and the catheter was fastened to the skin with Ticron. Both lumens w ere flushed with heparinized saline. The patient tolerated the procedure without difficulty and was in stable condition at the conclusion of the procedure. COMPARISON: None. FINDINGS: The right internal jugular vein is patent by ultrasound. Fluoroscopic imaging demonstrates tip of th e catheter at the cavoatrial junction. IMPRESSION: Right internal jugular vein tunneled hemodialysis catheter placement using sonographic and fluoroscop ic guidance. Dictated by: Carolin Barber M.D. on 11/07/2016 at 15:21 Approved by: Carolin Barber M.D. on 11/07/2016 at 15:30
--- NOTE | 2016-11-07 15:46 | PCM.ENDEGD ---
EGD Date of Service: Nov 07, 2016 Physician Og Villanueva MD Indication for Procedure Anemia Post Procedure Dx & Findings: Healing ulcer significance swelling of the first pass of the duodenum gastritis gastric erosions and duodenal erosions. Procedure Esophagogastroduodenoscopy PROCEDURE IN DETAIL: The patient was placed in left lateral decubitus position. Bite block was placed. Scope lubricated, placed in posterior pharynx, passed through the cricopharyngeus and esophagus, slowly advanced the entire length of the gastric pouch, pylorus was identified, scope passed through the pylorus and descending portion of duodenum, withdrawn in the antrum, retroflexed upon itself for view of fundus and cardia. Scope was then withdrawn through the oropharynx. The Z line appeared to be intact at 40 cm. The stomach showed diffuse redness irritation and superficial erosions in the antrum to the body. Otherwise no large ulcerations noted. Was no masses. Retroflexion was done which showed normal cardia and fundus. Stomach was easily inflatable and deflated well using air. In the duodenum, there was significant swelling or redness at the first pass of the duodenum. This is probably where the 2 cm ulcer was. In the center of the redness and swelling, there was evidence of scarring and the ulcer size was about 4 millimeters in size with a clean base. Further distal, there were evidence of possible healing erosions in the distal duodenum. Impression Healing ulcer. Significantly better than before. I think what happened was she probably lost blood slowly at the ulcer site while it was healing. I suspect her hemoglobin should slowly improve with iron supplementation. The first pass of the duodenum was very difficult to see due to the scarring and swelling. Patient also just received some heparin while deploying the catheter less than an hour ago. Therefore biopsies were not taken. Gastric erosions and gastritis Recommendation Aggressive acid suppression with IV PPI for now. If she gets heparin for the dialysis, there is a potential of losing blood. Therefore I suggest think conservative with heparin use. Have the patient follow up with Dr. Evans in the GI clinic 2 weeks after discharge. Iron supplementation. Reconsult if there is evidence of blood in the stools melena or further decrease in hemoglobin level. We will sign off. Presedation Assessment Risks and Benefits Informed consent was obtained from the patient after all risks and benefits including but not limited to drug reaction, infection, pain, bleeding, perforation, as well as alternatives were discussed. Patient monitoring Continuous pulse oximetry, cardiac monitoring, blood pressure monitoring, IV access, and oxygen at 2L per nasal cannula. Complications There were no periprocedural complications identified. Post Procedure Plan Post Procedure Recommendations 1. Restrict activities today. 2. Resume normal activities in the morning. 3. Resume medications. 4. GERD behavioral modification: - Avoid fatty, acidic, spicy, large meals - Do not lie down after meals - Do not eat or drink anything for at least 2 1/2 hours before going to bed at night - Discontinue tobacco and alcohol - Decrease or avoid caffeine - Avoid chocolate and mints - Decrease weight - Avoid aspirin and non steroidal anti-inflammatory agents (NSAID) such as Aleve, Advil, Mobic, Naproxen, Ibuprofen, etc 5. Add proton pump inhibitor. Take 30 minutes before 1st meal of the day. 6. Patient informed of normal post procedure side effects as bloating, drowsiness, blood streaking in the stool 7. If gastric biopsy reveal H.pylori, continue with appropriate treatment 8. If small bowel biopsy reveals celiac, continue with appropriate treatment 9. Please don't hesitate to call me with any questions Osvaldo Jamil MD Nov 07, 2016 15:46
--- NOTE | 2016-11-07 16:05 | NUR ---
report to Niecy SCHAFFER on [facility] Pt to go directly to Endo from tutorial laboratory supervisor per Endo RN report, then pt supposed to go directly to [facility] for dialysis after Endo. Called report to Niecy Rodriguez on [facility] who will oversee pt while on [facility] receiving dialysis. Called court recording monitor and will place pt on tele box while on [facility] so pt can be monitored. WIll await pt's return to unit. Addendum: 11/07/16 at 1842 by RICHARD SAMUEL RN Pt did not transfer care to niecy Rodriguez RN, pt came back to [facility] room 3010.
[2016-11-07] MEDS ORDERED: Lactated Ringer's 1,000 ML IV SCH (17:03)
--- NOTE | 2016-11-07 17:04 | PCM.ANEP1 ---
Post Anesthesia Phase 1 PACU Phase 1 Assessment Date of Service: Nov 07, 2016 Vital Signs Vital Signs Date Time Temp Pulse Resp B/P Pulse Ox O2 Delivery O2 Flow Rate FiO2 11/07/16 16:01 65 17 104/61 95 Room Air 11/07/16 15:55 95 17 95/49 95 Nasal Cannula 3 11/07/16 15:45 62 17 104/65 93 Room Air 11/07/16 09:51 36.7 61 22 140/68 94 Room Air 11/07/16 09:42 60 Anesthetic Administered: GA, MAC Level of Alertness: Awake, talking NICOLAS's with Equal Strength: Yes Pain: No Nausea or Vomiting: No Oxygen Delivery: Nasal Cannula Lungs: Clear to Auscultation, Normal Air Movement Dermatome Level: Full Sensation Calixto Montalvo MD Nov 07, 2016 17:04
--- NOTE | 2016-11-07 17:04 | PCM.HPANE ---
Patient Data Surgeon Admitting Provider:Og Villanueva MD Attending Provider:Og Villanueva MD Primary Care Physician:Nopcp Other Provider: Reason for Visit Hyperkalemia,Anemia, Increased Creatinine Ht/WT & BMI Height (Feet): 5 Height (Inches): 0.00 Weight (Kilograms): 60.000 Body Mass Index 25.97 Allergies Coded Allergies: Penicillins (Verified Allergy, Severe, ?, 11/05/16) Past Anesthesia History Anesthesia History: Denies:: Anesthesia Reactions, Difficult Intubation, Fam Anesthesia Reaction, Fam Malignant Hypertherm, Malignant Hyperthermia Diabetes History Hx Diabetes?: No Current Bedside Blood Glucose: 181 MRSA MRSA: No Medications Reported Medications Na Phos,M-B/Na Phos,Di-Ba (Fleet Enema)133 Ml Pynpg561 Ml RC DAILY PRN For Constipation 11/05/16 Bisacodyl (Dulcolax Rectal)10 Mg Supp.rect10 Mg RC DAILY PRN For Constipation 30 Days Ref 0 11/05/16 Magnesium Hydroxide (Milk of Magnesia)400 Mg/5 Ml Oral.bohy678 Mg PO DAILY PRN For Constipation 11/05/16 Ondansetron (Zofran)4 Mg Tablet4 Mg PO q6 hours PRN For Nausea 11/05/16 Acetaminophen 325 Mg Zciaarp203 Mg PO q6 hours PRN For Pain 11/05/16 Sucralfate 1 Gm Tablet1 Gm PO q6 hours 30 Days Ref 0 11/05/[address] 40 Mg Tablet.dr40 Mg PO BID Ref 0 11/05/16 Hydroxyzine HCl (HydrOXYzine Hcl)50 Mg Ursfqs10 Mg PO q 8 hours Ref 0 11/05/16 Dextran 70/Hypromellose/Pf (Artificial Tears Drops)1 Each Droperette2 Drop BOTH_ EYES prn PRN dry eyes #1 BOTTLE 11/05/16 Ascorbic Acid (Vitamin C)250 Mg Tab.qgok940 Mg PO DAILY #30 TABLET Ref 0 11/05/16 Ferrous Sulfate 325 Mg Vdbpzt780 Mg PO DAILY 30 Days Ref 0 11/05/16 Amlodipine 10 Mg Wleyis90 Mg PO DAILY #30 09/14/16 Discontinued Reported Medications Ergocalciferol (Vitamin D2) (Drisdol)50,000 Unit Nyoqfec58,000 Unit PO Q7D 09/14/16 Discontinued Scripts Folic Acid/Vitamin B Comp W-C (Nephro-Mike Tablet)0.8 Mg Tablet1 Tablet PO DAILY #30 TABLET Prov:Gio Garrison MD 09/18/16 Calcitriol (Rocaltrol)0.25 Mcg Capsule0.25 Mcg PO DAILY #30 CAPSULE Prov:Gio Garrison MD 09/18/16 Furosemide 20 Mg Tab20 Mg PO DAILY 30 Days Ref 0 Prov:Gio Garrison MD 09/18/16 History History of ENT Problems?: No HEENT History: Denies:: Cataracts Difficult Intubation Dysphagia Sinus Problem Hx of Heart Problems?: Yes Cardiovascular History: Positive for:: Cardiac Surgery (Pacemaker Jul 25, 2014 ) Hypertension Irregular Heartbeat Pacemaker Denies:: Atrial Fibrillation Chest Pain Congestive Heart Failure Edema Heart Murmur Thrombophlebitis Hx of Respiratory Problem?: No Respiratory History: Denies:: Asthma COPD Chest Surgery Dyspnea Emphysema Hemoptysis Pneumonia Tuberculosis Hx Neurologic Problems?: No Neurological History: Positive for:: CVA Dizziness Denies:: Alzheimer's Disease Dementia Headaches Parkinson's Disease Seizures Hx of GI Problems?: No Gastrointestinal History: Positive for:: Rectal Bleeding Denies:: Cirrhosis Diverticulitis Gastroesphageal Reflux Gastrointestinal Bleeding Heartburn Hepatitis Hiatal Hernia Hx of Problems?: Yes Genitourinary History: Denies:: HX of Hemodialysis Kidney Stones Urinary Tract Infection Female Hx: Denies:: Currently Endometriosis Pelvic Inflammatory Problems with Breasts? Hx Musculoskeletal Problems?: No Musculoskeletal History: Denies:: Back Injury Joint Replacement Musculoskeletal Trauma Hx of Psycho/Social Problems?: No Psycho Social History: Positive for:: Anxiety Denies:: Bipolar Disorder Hx Depression Suicide Attempt Hx Surgeries?: Yes (appy, thyroid, pacer, ) Hx Any Other Health Problems?: Yes Other History: Positive for:: Hospitalization Thyroid Disease (Parathyroid surgery) Denies:: Cancer Endocrine Disease History Blood Transfusions: Positive for:: Blood Transfusions Denies:: Blood Transfuse Reaction Hx Diabetes: NoBedside Blood Glucose: 181 Occupation: retired Hx Alcohol Use: Yes (history of alcohol abuse, quit 28 years ago)Hx Substance Use: No Smoking Status: Former Smoker Have You Smoked inLast 12 mo: No Stop/Bang Treated for Sleep Apnea?: No Do You Have a CPAP Machine?: No S-Snoring: Do You Snore Loudly: No T-Tired: feel tired, fatigued: No O-Obsered: Observed not breath: No P-Blood Pressure: treated: No B- Body Mass Index > 35 kg/m2: No A- Age over 50: Yes N- Neck Large Circumference: No G- Gender Male: No MARLENI Total Score: 0 Risk Assessment Category Category 1A: Patient has history of documented sleep apnea, and HAS NOT received any narcotic, sedative or anesthesia administration during this stay. Category 1B: Patient has history of documented sleep apnea, and HAS received any narcotic , sedative or anesthesia administration during this stay Category 2: Patient has SUSPECTED Obstructive Sleep Apnea, and HAS received any narcotic , sedative or anesthesia administration during this stay. Category 3: Patient has SUSPECTED Obstructive Sleep Apnea and HAS NOT received narcotic, sedative or anesthesia administration during this stay. Category 4: Outpatient in Procedural Areas with known sleep apnea or who screen positive for High Risk via the STOP/BANG questionnaire. Exam Exam Vital Signs Vital Signs Date Time Temp Pulse Resp B/P Pulse Ox O2 Delivery O2 Flow Rate FiO2 11/07/16 09:51 36.7 61 22 140/68 94 Room Air 11/07/16 09:42 60 General Appearance: Alert, Cooperative, No Acute Distress, Other (baseline dementia) HEENT/AIRWAY: MP 2, Neck Movement (FROM), Mouth Opening (3 FBMO) Lungs: Clear to Auscultation, Normal Air Movement Heart: Other (pacemaker) Meds/Labs/Diagnostics Admission Meds Current Medications Famotidine/Sodium Chloride/Premix (Pepcid Inj/IV Premix) 50 ml @ 200 mls/hr Q24 IV Last administered on 11/07/16 09:47; Start 11/07/16 at 08:30; Stop at 13:18; Status DC Furosemide (Lasix Inj) 80 mg ONCE ONCE IVPUSH Last administered on 11/07/16 12:04; Start 11/07/16 at 10:25; Stop 11/07/16 at 10:41; Status DC Insulin Human Regular (HUMulin-R Insulin Inj) 5 unit OT ONCE IV Last administered on 11/07/16 13:06; Start 11/07/16 at 12:30; Stop 11/07/16 at 12:31 ; Status DC Dextrose/Water 50 ml 50 ml OT ONCE IVPUSH Last administered on 11/07/16 12:52 ; Start 11/07/16 at 12:31; Stop 11/07/16 at 12:32; Status DC Dextrose/Water 1,000 ml @ 80 mls/hr [id number] IV Last administered on 11/07/16 13:51; Start 11/07/16 at 13:45; Stop 11/07/16 at 14:14; Status DC Dextrose/Water (D10w) 1,000 ml @ 100 mls/hr Q10H IV Last administered on 14:17; Start 11/07/16 at 14:15 Bedside Blood Glucose: 181 Labs Test 11/05/16 07:50 11/05/16 07:55 11/05/16 10:30 11/05/16 12:30 Urine Color Straw (YELLOW) Urine Appearance Hazy (CLEAR,HAZY) Urine pH 6.0 (5.0-8.0) Urine Specific [place] 1.020 (1.003-1.035) Urine Protein 100mg/dL (NEG,TRACE) Urine Glucose (UA) Negativemg/dL (NEGATIVE) Urine Ketones Negativemg/dL (NEGATIVE) Urine Occult Blood Negative (NEGATIVE) Urine Nitrite Negative (NEGATIVE) Urine Bilirubin Negative (NEGATIVE) Urine Urobilinogen Normalmg/dL (NORMAL) Urine Leukocyte Esterase Negative (NEGATIVE) Urine RBC 0-2/hpf (0-2) Urine WBC 0-5/hpf (0-5) Urine Epithelial Cells Occasional/hpf (NONE-MOD) Urine Crystals Amorphous urates (NONE Urine Bacteria None/hpf (NONE-FEW) Urine Hyaline Casts Occasional/lpf (NONE) Urine Granular Casts None seen (NONE SEEN) Urine Waxy Casts None seen (NONE SEEN) Urine Red Blood Cell Casts None seen (NONE SEEN) Urine White Blood Cell Casts None seen (NONE SEEN) Urine Mucus None seen (None Seen) Urine Trichomonas None seen (NONE SEEN) Urine Yeast None (NONE SEEN) Urinalysis Comment Transitional epi Urine Culture Reflexed Not indicated Prothrombin Time 10.2sec (8.1-12.5) Prothromb Time International Ratio 0.95ratio Lactic Acid Level 0.6mmol/L (0.4-2.0) Troponin T 0.032ug/L (0.0-0.011) Pro-B-Type Natriuretic Peptide 1618pg/mL (0-301) Test 11/05/16 17:55 11/05/16 18:11 11/06/16 05:35 11/06/16 08:30 Reticulocyte Count,Calculated 1.7% (0.6-2.6) Iron Level 81ug/dL (35-150) Total Iron Binding Capacity 281ug/dL (250-450) Percent Iron Saturation 29%sat (15-50) Unsaturated Iron Binding 200.0ug/dL Ferritin 542ng/mL (13-150) Vitamin B12 Level 1362pg/mL (211-946) Folate 4.2ng/mL (>3.0) Hold Urine Received (Received) Vitamin D 25-Hydroxy 32.8ng/mL (30.0-100.0) Procalcitonin 0.07ng/mL (See Comment) Parathyroid Hormone (Intact) 265pg/mL (15-65) Thyroid Stimulating Hormone (TSH) 3.800uIU/mL (0.450-4.500) Free Thyroxine 1.27ng/dL (0.82-1.77) Cortisol 10.4ug/dL (.) Test 11/07/16 05:12 White Blood Count 6.2th/mm3 (3.8-10.1) Red Blood Count 2.91mil/mm3 (3.90-5.20) Hemoglobin 8.7g/dL (12.0-15.6) Hematocrit 27.1% (35.0-46.0) Mean Corpuscular Volume 93.1fL (81-100) Mean Corpuscular Hemoglobin 29.9pg (27.0-35.0) Mean Corpuscular Hemoglobin Concent 32.1% (32.0-37.0) Red Cell Distribution Width 18.4% (12.3-15.4) Platelet Count 124bil/L (150-400) Neutrophils (%) (Auto) 83.1% (40-74) Lymphocytes (%) (Auto) 7.4% (14-46) Monocytes (%) (Auto) 7.7% (4-12) Eosinophils (%) (Auto) 1.3% (0-5) Basophils (%) (Auto) 0.2% (0-3) Sodium Level 143mEq/L (134-144) Potassium Level 5.5mEq/L (3.5-5.2) Chloride Level 112mEq/L (97-108) Carbon Dioxide Level 21mmol/L (18-29) Blood Urea Nitrogen 42mg/dL (8-27) Creatinine 3.57mg/dL (0.57-1.00) Estimat Glomerular Filtration Rate 18mL/min (>59) Glucose Level 72mg/dL (60-99) Calcium Level 9.9mg/dL (8.5-10.1) Phosphorus Level 4.3mg/dL (2.5-4.9) Magnesium Level 3.3mg/dL (1.6-2.6) Total Bilirubin 0.3mg/dL (0.0-1.2) Aspartate Amino Transf (AST/SGOT) 19U/L (0-50) Alanine Aminotransferase (ALT/SGPT) 15U/L (0-32) Alkaline Phosphatase 160U/L (25-165) Total Protein 5.0g/dL (6.4-8.4) Albumin 2.9g/dL (3.4-5.0) Plan Impression Patient chart reviewed, patient interviewed and anesthestic plan with risks, benefits, and alternatives discussed, and informed consent obtained. NPO Status: MN ASA Physical Status: ASA3 Severe Disease Anesthetic Plan: GA, MAC Bene/Risks/Altern/Consents: Yes HP Complete Prior to Induction: Yes Calixto Montalvo MD Nov 07, 2016 14:28
[2016-11-07] MEDS ORDERED: MetoCLOpramide 5 mg/mL 2 mL Inj IVPUSH PRN (17:05)
--- NOTE | 2016-11-07 17:05 | PCM.ANEP2 ---
Post Anesthesia Evaluation ASA/CMS Post Anesthesia VS in Patient's Normal Range?: Yes Resp Stable; Airway Patent?: Yes CV Function & Hydration Stable: Yes Mental Status Recovered?: Yes Pain control Satisfactory?: Yes N/V Control Satisfactory?: Yes Calixto Montalvo MD Nov 07, 2016 17:04
--- NOTE | 2016-11-07 18:35 | NUR ---
Transfer [place] [facility] Received report from Ashly Mensah RN on [facility] while patient currently in Endo. Status change related to unstable blood glucose. Patient to transfer to [facility] for dialysis once glucose is stable. Ashly Mensah., Blanche Cruz and Ivy Robles aware of plan.
--- NOTE | 2016-11-07 18:42 | NUR ---
returned from Endo/transfer to [facility]/report to Elana SCHAFFER Pt returned from Endo awake and talking at 1725. BG checked at bedside and was 62 and 59. VS taken and stable, D10 IV resumed at 100ml/hr per orders. 1 amp D50 given IV per prn orders and MD notified. MD to bedside to assess and is aware that pt has received several amps of D50 over the past several hours to maintain BGs, MD still wants pt to receive dialysis tonight. BG rechecked after D50 given and BG up to 197, then 151. BG checks about every 15 minutes. Pt voided on bedpan with assist. Tunnel cath to R chest C/D/I, scant bloody drainage noted under bio-occlusive dressing. Floorworker Distributor arranged for inpatient RN to care for pt on [place] while pt receiving dialysis r/t unstable BG's. Report called to Elana SCHAFFER and pt transferred via bed with this RN (remote mortgage underwriter) and GOAT DRIVER at 1825, BG checked just prior to transfer and [id number]=[id number]. Bedside safety check done with receiving nurse Elana on [facility] room 243 when pt brought over, telephone technician also aware of transfer and will monitor her telemetry while on dialysis. When MD at bedside this evening, RN also noted to MD that pt's tongue protrudes at times, MD aware. Will report to oncoming shift RN as well on [facility] for when pt is anticipated back here.
--- NOTE | 2016-11-07 18:50 | NUR ---
ARRIVAL TO [facility] Pt arrive via bed at 1825, she is alert; iv infusing D10W at 100/hr. Blood sugar checks ongoing Q15min at this time until stable. Report received from [facility] nurse Ashly Almanza.
--- NOTE | 2016-11-07 21:05 | NUR ---
TRANSFER TO [facility] Pt is stable at end of dialysis with BP 11/66, Hr 62 and Blood Glucose 97 at 2052. Report given to receiving [facility] nurse Unique Tripathi and pt transferred to [facility] at 2054 in stable condition.
--- NOTE | 2016-11-07 21:45 | NUR ---
Dialysis note: S/P catheter placement. S/P EGD. 2 hrs tx. 500 ml net UF. Right catheter, dsg changed, sutures intact. Pls see DTR for VS details. Qb 200 max as ordered. No heparin given. O2 @ 2L via NC on. Aranesp 60 mcg IV given. Tolerated tx, slept at intervals. Catheter flushed, heparin dwelled and secured. Report given to Vanessa Pedroza RN. Transferred back to patient's room in stable condition.
[2016-11-08] VITALS (8 sets, daily range): BP systolic 122–162; BP diastolic 65–85; PULSE 57–66; RESP 18–20; O2SAT 94–96
[2016-11-08] MEDS: Dextrose 10% 1,000 ML IV SCH ×3 (01:39→22:34)
--- NOTE | 2016-11-08 05:08 | NUR ---
Blood Glucose/ Mentation/ urine output Pt blood Glucose stabilized overnight. d10W infusing @100. Blood glucose between 90-105. Pt alert- intermittently confused, frequently shouting out for RN. Frequent reorientation and rounding provided. Pt up to BSC multiple times overnight putting out ample amount of pale urine. See i&O.
[2016-11-08 05:44] LABS: BASOPHILS % (AUTO) 0.3 % (0-3); EOSINOPHILS % (AUTO) 1.3 % (0-5); MONOCYTES % (AUTO) 8.3 % (4-12); Mean Corpuscular Hemoglobin 30.3 pg (27.0-35.0); Mean Corpuscular Volume 92.5 fL (81-100); NEUTROPHILS % (AUTO) 80.9 % (40-74); Platelet Count 104 bil/L (150-400)
[2016-11-08 06:05] LABS: Phosphorus 2.9 mg/dL (2.5-4.9)
[2016-11-08] MEDS ORDERED: Pantoprazole 4 mg/mL 10 mL Inj IVPUSH SCH (08:30)
[2016-11-08] MEDS: Sodium Chloride LOK Flush 10 mL Syringe IVFLUSH SCH ×3 (08:33→23:50)
--- NOTE | 2016-11-08 09:32 | NUR ---
Pt arrived to [facility]: Pt arrived to [facility] for dialysis treatment. Pt appears stable at time of transfer. [employer] aware of transfer. Report obtained from Travis Soto RN. Addendum: 11/08/16 at 1152 by JOSSE HANEY RN Pt completed dialysis and may return to [facility] room 3010. Report called to primary nurse Jasmin Soto RN. global technical writer aware of transfer. Pt hollering out "hello...hello" multiple times during dialysis even with continued redirection/reorientation. Vital signs on graphic flow sheet.
--- NOTE | 2016-11-08 11:04 | PCM.PNMED ---
Subjective Date of Service Nov 08, 2016 Subjective Pt is seen during HD, BP stable. She wants to go back to her room. She is afraid that her belonging will be stolen. Exam Vital Signs Vital Sign - Last Date Time Temp Pulse Resp B/P Pulse Ox O2 Delivery O2 Flow Rate FiO2 11/08/16 05:22 36.4 60 20 162/69 96 Room Air 11/07/16 17:48 2.00 Intake and Output 11/07/16 11/07/16 11/08/16 Cumulative From/Thru 15:00 23:00 07:00 11/05/16 07:37 - 11/08/16 05:14 Intake Total 50 ml 0 ml 950 ml 2736 ml Output Total 1550 ml 6275 ml Balance 50 ml -1550 ml 950 ml -3539 ml Intake Oral 0 ml 300 ml IV Total 50 ml 950 ml 1986 ml Packed Cells 450 ml Output Urine Total 1050 ml 5775 ml Ultrafiltrate 500 ml 500 ml # Bowel Movements 0 1 Exam GA: AAOx3, NAD. HEENT: Mild pallor. No jaundice. No JVD. No lymphadenopathy. No thyroid enlargement. Dry mucous membrane. Heart: Regular rhythm. Normal S1, S2. No murmurs, rubs, or gallops. Lungs: scattered rhonchi noted. Abdomen: Soft, active bowel sounds. Nontender, nondistended. Surgical scar dry, clean and intact. Extremity: no edema on the lower extremities. Skin: right tunneled cath in place, pacemaker placement. Lab and Diagnostics Result Diagram: 11/08/1651911/08/16 0520 Assessment & Plan 1. 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 first HD on 11/07/16 She is now on 2nd HD treatment without complications. Revaclear, 2.5 hr, UF 1L DFR 500, BFR 250, 2K, 35HCO3. Right tunneled cath. Systemic heparin is not being used during HD. 2. Hyperkalemia, resolved. 3. Anion gap metabolic acidosis secondary to uremia. 4. Anemia with significant history of GI bleed and CKD5. s/p blood transfusion. s/p aranesp. s/p EGD not active bleeding identified. 5. Bipolar disorder. 6. Depression. 7. Dementia. 8. Hypercalcemia. PLAN: 3rd HD in am, 3 hr, UF as tolerated. d/c home once outpatient HD arranged. add nephrovite daily. VTE Mechanical Devices: Intermittant Pneumatic CD Resuscitation Status: CPR: Attempt Resuscitation Danielle Rodgers MD Nov 08, 2016 11:04
--- NOTE | 2016-11-08 11:45 | NUR ---
Dialysis note: 2 1/2 hrs tx. 1000 ml net UF. Right catheter, dsg dry and intact. Pls see DTR for VS details. Qb 250 max as ordered. No heparin given. O2 @ 2L via NC on. Pt awake and alert but gets confused and asks the same questions repeatedly; calling out loud at times. Stable tx. Catheter flushed, heparin dwelled and secured. Report given to Bhumi Silva RN. Transferred back to patient's room in stable condition.
--- NOTE | 2016-11-08 12:28 | NUR ---
Dialysis Pt off unit to [facility] [place] at 0840. Taken in bed by ELECTROPLATER. Pt alert and awake, asking repetitive questions about where her clothing is - per NOC report, this behavior is baseline for pt. Report called to Bhumi SCHAFFER. Pt returned to unit at 1201. Report received from Bhumi SCHAFFER
--- NOTE | 2016-11-08 14:55 | NUR ---
NUTRITION ASSESSMENT: ASSESS: 71 YO female admitted for hyperkalemia and anemia. Pt is s/p HD cath placement with initiation of dialysis on treatment #2. Pt was on full liquid diet eating 25-50%, but ST has made pt NPO today so pt has been unable to take adequate nutrition now x 3 days. PMHx: ESRD secondary to chronic interstitial nephritis no on HD, anemia secondary to GI bleed and CKD stage 5 s/p EGD, bipolar disorder, depression, dementia. LABS: Reviewed. Cr 2.74, Glu 113, Alb 2.7. MEDS: Reviewed. GI: BM x 1 (11/07) CURRENT WT: Admit wt: 60.0 kg. (No new wts recorded s/p dialysis treatment to determine a new dry wt.) Wt Oct 2015: 73 kg Wt loss approx 18% in 1 year but likely will more when dry wt is obtained. DIET: NPO EST. NEEDS (ESRD on HD, SIGNIFICANT WT LOSS): Kcals: 0790-1081 kcals (30-40 kcals/kg BW) Protein: 70-110 g protein (1.2-1.8 g/kg BW) NUTRITION DIAGNOSIS: 1.) Chewing / Swallowing difficulties related to delayed swallow and decreased cognition as evidenced by current need for NPO diet status, ST following. 2.) Inadequate oral intake related to decreased cognition as evidenced by current NPO status and poor po intake now x 3 days. NUTRITION INTERVENTION: 1.) Continue to advance diet as able per ST recommendations. 2.) Consider nutrition support if consistent with pt plan of care if diet cannot be advanced and well tolerated in the next 24-48 hours. 3.) Recommend re-estimating energy and protein needs once dry weight has been obtained. MONITOR / EVAL: Diet advancement / tolerance, labs, nutritional status. Follow per high nutritional risk guidelines.
--- NOTE | 2016-11-08 18:45 | PCM.PNMED ---
Subjective Date of Service Nov 08, 2016 Subjective Since yesterday, patient received upper endoscopy which found healing gastric ulcer. She then received tunnel catheterization and hemodialysis. Today, patient fatigued from dialysis 2nd hemodialysis. She denies any new complaints today. Exam Vital Signs Vital Sign - Last Date Time Temp Pulse Resp B/P Pulse Ox O2 Delivery O2 Flow Rate FiO2 11/08/16 17:11 36.3 57 18 158/65 96 Room Air 11/07/16 17:48 2.00 Intake and Output 11/07/16 11/07/16 11/08/16 Cumulative From/Thru 15:00 23:00 07:00 11/05/16 07:37 - 11/08/16 05:14 Intake Total 50 ml 0 ml 950 ml 2736 ml Output Total 1550 ml 6275 ml Balance 50 ml -1550 ml 950 ml -3539 ml Intake Oral 0 ml 300 ml IV Total 50 ml 950 ml 1986 ml Packed Cells 450 ml Output Urine Total 1050 ml 5775 ml Ultrafiltrate 500 ml 500 ml # Bowel Movements 0 1 Exam General: AOx3 HEENT: Mucosa pink and moist, sclera anicteric Neck: Neck supple with full range of motion. Non tender, no stiffness Chest & Lungs: b/l air sound, no wheeze, no crackles, mild Coarse breath sounds , Cardiovascular: RRR with soft systolic murmur noted Abdomen: Non-tender, Non-distended, No masses, Normoactive bowel tones, Soft Musculoskeletal: Moves all extremities Extremities: No cyanosis/clubbing/edema bilaterally, trace peripheral edema noted. Neurological: Speech is slow and disoriented Psych: Labile mood, tangential at times. Lab and Diagnostics Result Diagram: 11/08/1651911/08/16519 Assessment & Plan Patient is a 71-year-old female with a history of CVA, ESRD not on dialysis, HTN , dementia, and bipolar d/o who arrived to the ED via EMS from [facility] assisted [facility] due to increasing aggressive behavior. She is admitted for her AMS and also a workup for profound anemia present on admission. acute, active #Acute encephalopathy, POA, improving Reported aggressive behaviors on top of her baseline dementia at the senior living, Ddx delirium vs uremic encephalopathy She is pleasant today and is alert, but is not very coherent in her speech at times. She does not remember talking to any of the specialists about her planned procedures today. #Anemia, POA, acute on chronic, stable Patient has history of upper GI bleed with arterial bleeding, last admitted to [facility] 09/24/16. Had embolization at [facility] -appreciate GI recs, Planning for endoscopy procedure today -H&H stable today. -transfuse target hgb>7 #Hypothermia, hypoglycemia, acute, POA Patient BG in ED 41, s/p multiple D50, followed by D5 1/2 NS at 75 mls/hr, unclear etiology so far. -fluid stopped, will check TFT, random cortisol -She was also hypoglycemic this morning in the 60s. Given 1 amp of D50 to help with hypoglycemia, but since she is also mildly hyperkalemia, will add 5 units of regular insulin IV to help decrease hyperkalemia also. #Hyperkalemia, POA, S/p cocktails for hyperkalemia, d5/insulin/neb/kayaxlate on admission. K was 5.5 today. Treat as above #KAMILLE on Chronic Kidney Disease, POA Stage IV kidney disease being followed by Dr. Araya in the clinic. [id number] stable. -Held Furosemide and amlodipine on admission -Appreciate nephrology input regarding initiation of HD, Patient will be receiving tunnel cath today -trend K, eGFR, avoid renal toxin, chronic, stable, 5. Elevated troponin, chronic, present on admission, Chronically elevated in the setting of CKD, 6. Chronic GERD, Present on admission, continue pepcid q24h CODE STATUS: Discussed resuscitation status with patient, patient wishes to be full code. DVT prophylaxis: SCD, diet: renal, dysphagia mechanical, advance as tolerate dispo: likely 2-3more days until clinically more stable VTE Mechanical Devices: Intermittant Pneumatic CD Resuscitation Status: CPR: Attempt Resuscitation Attending Statement The patient was seen and examined together with Dr. Severiano Key on 11/08/2016 and I agree with the history, exam and plan as outlined in the note above. Severiano Key DO Nov 08, 2016 18:45 Abran Wilde MD Nov 09, 2016 13:20
[2016-11-09] VITALS (8 sets, daily range): BP systolic 146–172; BP diastolic 73–95; PULSE 60–67; RESP 18–20; O2SAT 94–96
[2016-11-09 07:36] LABS: BASOPHILS % (AUTO) 0.2 % (0-3); EOSINOPHILS % (AUTO) 1.7 % (0-5); Mean Corpuscular Volume 93.4 fL (81-100); NEUTROPHILS % (AUTO) 76.6 % (40-74); Platelet Count 105 bil/L (150-400)
[2016-11-09 08:08] LABS: Phosphorus 2.8 mg/dL (2.5-4.9)
[2016-11-09] MEDS: Pantoprazole 4 mg/mL 10 mL Inj IVPUSH SCH (08:23)
[2016-11-09] MEDS: Sodium Chloride LOK Flush 10 mL Syringe IVFLUSH SCH ×2 (08:23→15:34)
[2016-11-09] MEDS: Dextrose 10% 1,000 ML IV SCH (08:30)
--- NOTE | 2016-11-09 08:41 | NUR ---
Pt arrived to [facility]: Pt arrived to [facility] for dialysis treatment. Pt appears stable at time of arrival. [facility] aware of room change. Report obtained from Travis Morillo RN. Addendum: 11/09/16 at 1221 by JOSSE HANEY RN Pt returned to unit after dialysis treatment completed. Pt appears to be stable at time of transfer. Report called to primary nurse by Ivy the dialysis nurse. senior medical technologist aware of transfer to [facility] room 3010.
--- NOTE | 2016-11-09 10:26 | PCM.PNMED ---
Subjective Date of Service Nov 09, 2016 Subjective Patient seen while at HD today. She was alert and kept repeating that she would like some water or [employer] to eat. She wants to show the Speech therapist that she can eat. Yesterday, she was evaluated by ST and placed on NPO status due to aspiration risk. She continues to be on D10w for fluids and to keep her blood glucose up. Exam Vital Signs Vital Sign - Last Date Time Temp Pulse Resp B/P Pulse Ox O2 Delivery O2 Flow Rate FiO2 11/09/16 05:13 60 11/09/16 04:40 36.3 20 152/73 95 Room Air 11/07/16 17:48 2.00 Intake and Output 11/08/16 11/08/16 11/09/16 Cumulative From/Thru 15:00 23:00 07:00 11/05/16 07:37 - 11/09/16 06:00 Intake Total 0 ml 1340 ml 1120 ml 5196 ml Output Total 2500 ml 1775 ml 87519 ml Balance -2500 ml -435 ml 1120 ml -5354 ml Intake Oral 0 ml 100 ml 400 ml IV Total 1240 ml 1120 ml 4346 ml Packed Cells 450 ml Output Urine Total 1500 ml 1775 ml 9050 ml Ultrafiltrate 1000 ml 1500 ml # Bowel Movements 0 1 2 Exam General: AOx3 HEENT: Mucosa pink and moist, sclera anicteric Chest & Lungs: no wheeze, no crackles, mild Coarse breath sounds, normal effort. Cardiovascular: RRR with soft systolic murmur noted Abdomen: Non-tender, Non-distended, No masses, Normoactive bowel tones, Soft Musculoskeletal: Moves all extremities Extremities: No cyanosis/clubbing/edema bilaterally, trace peripheral edema noted. Neurological: Speech is slow and disoriented at times. Psych: Labile mood, fixated on diet today IVs and Medications IV Fluids D10W 100mls/hr Medications Reviewed: Medications were reviewed in detail Lab and Diagnostics Result Diagram: 11/09/16 0711/08/16 0520 Additional Diagnostics IMPRESSION: Right internal jugular vein tunneled hemodialysis catheter placement using sonographic and fluoroscopic guidance. Assessment & Plan Patient is a 71-year-old female with a history of CVA, ESRD not on dialysis, HTN , dementia, and bipolar d/o who arrived to the ED via EMS from [facility] assisted [facility] due to increasing aggressive behavior. She is admitted for her AMS and also a workup for profound anemia present on admission. acute, active #Acute encephalopathy, POA, improving Reported aggressive behaviors on top of her baseline dementia at the [facility], Ddx delirium vs uremic encephalopathy She is pleasant today and is alert, but is fixated on her diet, although re- directable. She is alert and oriented now, although her baseline dementia and bipolar d/o is likely causing her to have labile mood and irregular behaviors. #Anemia, POA, acute on chronic, stable Patient has history of upper GI bleed with arterial bleeding, last admitted to [facility] 09/24/16. Had embolization at [facility] -EGD with biopsies performed on 11/07. GI recommends PPI. Awaiting biopsy results. Appreciate GI recommendations. -H&H stable today. -transfuse target hgb>7 #Hypothermia, hypoglycemia, acute, POA Patient BG in ED 41, s/p multiple D50, followed by D5 1/2 NS at 75 mls/hr, unclear etiology so far. -Patient was initially hypoglycemic on admit, improved as above. She was also hypoglycemic while she was NPO for her procedures and is currently on D10w at 100mls/hr. -Will stop D10w and switch to NS at 100mls/hr while NPO. Will need to monitor glucose closely. -She is currently NPO status per Speech therapy, will be re-evaluated post HD today. Will stop IVF once NPO status is removed. #Hyperkalemia, POA, S/p cocktails for hyperkalemia, d5/insulin/neb/kayaxlate on admission. K wnl today. Continue to monitor #KAMILLE on Chronic Kidney Disease, POA Stage IV kidney disease being followed by Dr. Araya in the clinic. [id number] stable. -Held Furosemide and amlodipine on admission -Appreciate nephrology input regarding initiation of HD, Patient is s/p tunnel cath and outpatient HD will be initiated. -Avoid renal toxins, continue other recs per Nephrology team chronic, stable, 5. Elevated troponin, chronic, present on admission, Chronically elevated in the setting of CKD, 6. Chronic GERD, Present on admission, continue pepcid q24h CODE STATUS: Discussed resuscitation status with patient, patient wishes to be full code. DVT prophylaxis: SCD, diet: Currently NPO dispo: likely discharge when tolerating PO intake and HD established, 1-2 more days. Pain Evaluation: Adequate Pain Control VTE Mechanical Devices: Intermittant Pneumatic CD Resuscitation Status: CPR: Attempt Resuscitation Attending Statement The patient was seen and examined together with Dr. Humphries on 11/09/2016 and I agree with the history, exam and plan as outlined in the note above. Rakan Humphries DO Nov 09, 2016 07:53 Abran Wilde MD Nov 10, 2016 12:58
--- NOTE | 2016-11-09 10:49 | NUR ---
Social Work: Readiness for d/c Data: Pt is on day 4 of hospitalization. EMR reviewed, pt discussed in rounds. states that pt will either d/c today or tomorrow pending speech evaluation and pt's NPO status. STEAM AND POWER SUPERVISOR will continue to follow. Assessment: Pt from [facility]. Plan: Pt will d/c to [facility] either today or tomorrow with Dr Love to follow. STEAM AND POWER SUPERVISOR will continue to follow. LEON Hernandez
--- NOTE | 2016-11-09 11:31 | PCM.PNMED ---
Subjective Date of Service Nov 09, 2016 Subjective Pt is seen during HD, stable BP. No acute issue. Exam Vital Signs Vital Sign - Last Date Time Temp Pulse Resp B/P Pulse Ox O2 Delivery O2 Flow Rate FiO2 11/09/16 08:00 64 11/09/16 04:40 36.3 20 152/73 95 Room Air 11/07/16 17:48 2.00 Intake and Output 11/08/16 11/08/16 11/09/16 Cumulative From/Thru 15:00 23:00 07:00 11/05/16 07:37 - 11/09/16 06:00 Intake Total 0 ml 1340 ml 1120 ml 5196 ml Output Total 2500 ml 1775 ml 70610 ml Balance -2500 ml -435 ml 1120 ml -5354 ml Intake Oral 0 ml 100 ml 400 ml IV Total 1240 ml 1120 ml 4346 ml Packed Cells 450 ml Output Urine Total 1500 ml 1775 ml 9050 ml Ultrafiltrate 1000 ml 1500 ml # Bowel Movements 0 1 2 Exam GA: AAOx3, NAD. HEENT: Mild pallor. No jaundice. No JVD. No lymphadenopathy. No thyroid enlargement. Dry mucous membrane. Heart: Regular rhythm. Normal S1, S2. No murmurs, rubs, or gallops. Lungs: scattered rhonchi noted. Abdomen: Soft, active bowel sounds. Nontender, nondistended. Surgical scar dry, clean and intact. Extremity: no edema on the lower extremities. Skin: right tunneled cath in place, pacemaker placement. Lab and Diagnostics Result Diagram: 11/09/1672411/09/16724 Additional Diagnostics IMPRESSION: Right internal jugular vein tunneled hemodialysis catheter placement using sonographic and fluoroscopic guidance. Assessment & Plan 1. 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 first HD on 11/07/16 She is now on 3rd HD treatment without complications. Revaclear, 3 hr, UF 1L DFR 600, BFR 300, 2K, 35HCO3. Right tunneled cath. Systemic heparin is not being used during HD. 2. Hyperkalemia, resolved. 3. Anion gap metabolic acidosis secondary to uremia, resolved. 4. Anemia with significant history of GI bleed and CKD. s/p blood transfusion. s/p aranesp. s/p EGD not active bleeding identified. 5. Bipolar disorder. 6. Depression. 7. Dementia. 8. Hypercalcemia. PLAN: Next HD on Saturday 3 hr, UF as tolerated. pending OP HD setup. VTE Mechanical Devices: Intermittant Pneumatic CD Resuscitation Status: CPR: Attempt Resuscitation Danielle Rodgers MD Nov 09, 2016 11:31
--- NOTE | 2016-11-09 12:10 | NUR ---
Dialysis note: 3 hrs tx. 1000 ml net UF. Right catheter, dsg dry and intact. Pls see DTR for VS details. Qb 300. No heparin given. O2 @ 2L via NC on. Pt awake and alert but gets confused and asks the same questions repeatedly; calling out loud at times. Stable tx. Catheter flushed, heparin dwelled and secured. Report given to Ashly Silva RN. Stable at time of transfer.
--- NOTE | 2016-11-09 13:53 | NUR ---
Social Work: Continued d/c planning Data: YARD FOREMAN spoke with greige goods examiner who states that she has set up outpt HD for pt with the [facility]. No YARD FOREMAN needs regarding HD. ST has not yet seen pt regarding NPO. states pt likely to d/c tomorrow. YARD FOREMAN will continue to follow. Assessment: Pt who is independent at baseline. Plan: Pt will return to [facility] with Dr Love to follow. Nephrology has set up outpt HD for pt with the [facility]. YARD FOREMAN will continue to follow. LEON Hernandez
--- NOTE | 2016-11-09 14:14 | NUR ---
NUTRITION FOLLOW-UP: ASSESS: 71 YO female admitted for hyperkalemia and anemia. Pt is s/p HD cath placement with initiation of dialysis, now on 3rd treatment. Pt had EGD with biopsies performed on 11/07. She has been on and off NPO for procedures. ST evaluated pt on 11/06 and placed her on a stimulation diet. Pt was re-evaluated by ST on 11/08 and made NPO due to decreased cognition. Pt has had minimal PO intakex4 days. Wt has dropped 6kg since admit, likely due to start of HD. Pt reports having an appetite. PMHx: ESRD secondary to chronic interstitial nephritis no on HD, anemia secondary to GI bleed and CKD stage 5 s/p EGD, bipolar disorder, depression, dementia. LABS: Reviewed. Cr 2.74, Glu 113, Alb 2.7. MEDS: Reviewed. GI: BM x 1 (11/08) CURRENT WT: 54.2kg, BMI 22.6kg/m2, admit wt 60kg (wt change related to start of HD). Wt Oct 2015: 73 kg. (26% wt lossx1 year) DIET: NPO per ST EST. NEEDS (ESRD on HD, WT LOSS): Kcals: 8748-2945 kcals (30-40 kcals/kg BW) Protein: 65-100 g protein (1.2-1.8 g/kg BW) NUTRITION DIAGNOSIS: 1.) Chewing / Swallowing difficulties related to delayed swallow and decreased cognition as evidenced by current need for NPO diet status, ST following.--PERSISTS 2.) Inadequate oral intake related to decreased cognition as evidenced by current NPO status and poor po intake now x 3 days.-PERSISTS 3.) Moderate pro/kcal malnutrition related to AMS, chronic disease as evidence by 26% wt lossx1 year, decreased PO intake and pt with dementia and start of HD 4.) Increased nutrient needs related to increased demand for nutrients as evidence by start of HD and 26% wt loss in 1 year. NUTRITION INTERVENTION: 1.) Continue to advance diet as able per ST recommendations. 2.) Consider nutrition support if consistent with pt plan of care if diet cannot be advanced and well tolerated in the next 24-48 hours. MONITOR / EVAL: Diet advancement / tolerance, wt, ST, labs, nutritional status. Follow per high nutritional risk guidelines.
[2016-11-09] MEDS: 0.9% Sodium Chloride 1,000 ML IV SCH ×2 (15:33→23:30)
--- NOTE | 2016-11-09 19:35 | NUR ---
agitation patient saying repeatedly, "i want to leave, get me a phone, get me a wheelchair." attempted to re orient. unable. bed alarm on, mecca alarm on. given dinner. given quiet environment. plan to cont to give supportive care.
--- NOTE | 2016-11-09 19:58 | NUR ---
assumed care/agitation/calling out Received report from Emiliana SCHAFFER at 1140 and assumed care of pt. Pt when back from dialysis denies pain and A+O to person place and year, however yelling out loudly when staff not in room, asking same questions multiple times, stating "I need to eat, get me some water". Reminded pt about NPO until re-eval by speech therapy. Many attempts to reorient pt to plan and situation but pt forgetful. MD notified of son's concern of pt's increase in agitation. SOn in this evening and concerned about plan for discharge and concerned that MD may discharge pt too soon, MD notified and came to room to speak with pt and son. Bed alarm for safety. Call light in reach. Frequent rounding. Care continues.
[2016-11-10] MEDS: Sodium Chloride LOK Flush 10 mL Syringe IVFLUSH SCH ×2 (00:30→09:03)
[2016-11-10 00:58] VITALS: BP 163/78; PULSE 60; RESP 18; O2SAT 95
--- NOTE | 2016-11-10 02:20 | NUR ---
agitation patient consistently calls out "nurse, nurse, nurse!" noncompliant with call mercer. noncompliant with staying in bed until assistance arrives requests to make telephone calls, instructed that outside calls cannot be made until the morning. patient states "i just want to talk to my mom." phone cord found wrapped around the patient. phone removed. patient hits call mercer trying to change channel of tv. insists on drinking water, but then refuses thickened water. provided emotional support.
[2016-11-10 04:36] VITALS: BP 160/91; PULSE 60; RESP 18; O2SAT 95
[2016-11-10 05:38] LABS: BASOPHILS % (AUTO) 0.1 % (0-3); EOSINOPHILS % (AUTO) 1.1 % (0-5); MONOCYTES % (AUTO) 6.5 % (4-12); Mean Corpuscular Hemoglobin 29.6 pg (27.0-35.0); Mean Corpuscular Volume 92.7 fL (81-100); NEUTROPHILS % (AUTO) 83.9 % (40-74); Platelet Count 109 bil/L (150-400)
[2016-11-10 05:59] LABS: Phosphorus 2.6 mg/dL (2.5-4.9)
[2016-11-10 08:58] VITALS: PULSE 72
[2016-11-10] MEDS: 0.9% Sodium Chloride 1,000 ML IV SCH (09:03)
[2016-11-10] MEDS: Pantoprazole 4 mg/mL 10 mL Inj IVPUSH SCH (09:07)
--- NOTE | 2016-11-10 10:19 | PCM.DIMED ---
Discharge Instructions Date of Service Nov 10, 2016 Dates of Hospitalization Nov 05, 2016 at 17:16 Discharge Diagnosis Discharge Diagnosis #Acute encephalopathy, POA, Resolved #Anemia, POA, acute on chronic, stable #Hypothermia, hypoglycemia, POA, stable #Hyperkalemia, POA, resolved #Chronic GERD #Bipolar Disorder #ESRD secondary to chronic interstitial nephritis, now on Hemodialysis Medication Instructions Please resume your home medications as instructed. Diet Other (dysphagia mechanical textures, nectar thick liquid) Activity Other (Per discharge facility) Call your provider Fever or Chills, Chest pain Patient Instructions You are being discharged to [facility] You will need to have Hemodialysis on Sunday 11/12. If patient's behavior is altered, please monitor blood glucose and give oral sugar as appropriate. Please follow up with your doctor in 1 week. Follow-up Provider: Atul Love MD Follow-up with PCP in: 1 week Provider: Danielle Rodgers MD Follow-up in: 4 weeks Rakan Humphries DO Nov 10, 2016 10:19
[2016-11-10 10:35] VITALS: BP 161/83; PULSE 63; RESP 20; O2SAT 96
--- NOTE | 2016-11-10 11:27 | NUR ---
Social Work-readiness for discharge: Data:EMR Reviewed. Pt is on day 5 of hospitalization for anemia per H&P. Pt may be medically stable to discharge later today. EMR Reviewed. KRISTIN [facility] and spoke with Shara who confirms they have pt on the scheduled to have dialysis on Saturday11/13/16, pt will need to be there at 0900. SW confirmed with Call Center Agent that this time if fine and she is agreeable. SW spoke with Gerri at [facility] and they are able to accept pt back today. Paperwork in the chart. SW will continue to follow. Assessment:Pt who will return to [facility]. Plan:Pt to discharge back to [facility] when medically stable. Paperwork in the chart. SW will continue to follow. LEON Bernardo
--- NOTE | 2016-11-10 12:46 | NUR ---
Social Work-discharge: Data:EMR reviewed. Pt is on day 5 of hospitalization or anemia per H&P. Pt is medically stable to discharge today. KRISTIN confirmed with Admissions Gerri at [facility] that they are able to accept pt back today. Gerri scheduled transport for 1300 then changed to 1400. KRISTIN called [facility] and confirmed pt is to have dialysis on Saturday11/13/16 at 0900. KRISTIN updated Gerri at [facility] and she will arrange transport for this. KRISTIN called austin Ortiz and left two messages informing him of discharge. Pt aware of discharge and agreeable. RN,UC,pt/family, and [facility] all updated and agreeable to plan. Assessment:Pt to return to [facility]. Plan:Pt to discharge back to [facility] today via cabulance at 1400. KRISTIN left messages for austin Ortiz informing him of discharge. RN,UC,pt/family, and [facility] all updated and agreeable to plan. LEON Bernardo Addendum: 11/10/16 at 1309 by SATINDER PATTON SS Transport changed back to 1300. KRISTIN called austin Ortiz and left message updating him with time of discharge back to [facility]. LEON Bernardo
[2016-11-10 13:20] VITALS: BP 150/66; PULSE 58; RESP 18; O2SAT 97
--- NOTE | 2016-11-10 13:34 | PCM.DC.MED ---
Discharge Summary Date of Service Nov 10, 2016 Dates of Hospitalization Date of Hospital Admission Nov 05, 2016 at 17:16 Date of Discharge: Nov 10, 2016 Providers: Admitting Physician: Og Villanueva MD Primary Care Physician: Nopcp Attending Physician: Og Villanueva MD Diagnosis at Time of Discharge Diagnosis at Time of Discharge #Acute encephalopathy, POA, Resolved #Anemia, POA, acute on chronic, stable #Hypothermia, hypoglycemia, POA, stable #Hyperkalemia, POA, resolved #Chronic GERD #Bipolar Disorder #ESRD secondary to chronic interstitial nephritis, now on Hemodialysis Procedures XRay, CTs & MRIs PROCEDURE: X-RAY CHEST ONE VIEW, PORTABLE ([id number]) IMPRESSION: No acute cardiopulmonary disease. PROCEDURE: CT BRAIN WITHOUT CONTRAST ([id number]) IMPRESSION: No trauma found. Moderate microvascular atherosclerotic change within the deep white matter of each hemisphere and an old posterior medial left occipital stroke is again seen. Source of new altered mental status is not identified. Other Diagnostics IMPRESSION: Right internal jugular vein tunneled hemodialysis catheter placement using sonographic and fluoroscopic guidance. Brief History Mrs. Jody Harrell is a 71 year old lady with history of recent pacemaker insertion, CKD stage IV, dementia, hypertension, and depression, recent hospitalization in September for acute upper GI bleed who presents with altered mental status. She was staying at [facility] and began acting aggressively towards staff, and was brought to the ED. She was somewhat able to answer questions and denied nausea, vomiting, diarrhea, or abdominal pain. Vital signs were stable, Hb was 7.7 on arrival compared to 9.7 on discharge . Follow up Hb was 7.8 about 8 hours later. K was 6.1, BUN 48, Cr 3.65. Bilirubin and LFTs were normal. CXR was negative. Rectal exam in ED showed brown stool with no dark stool or blood. Guaiac negative. EGD on 09/29/16 showed a large, 2 cm duodenal first portion ulcer with recent stigmata of bleed and visible vessel/posterior duodenal bulb, status post argon plasma coagulation and Gold Probe thermocoagulation with a large, pulsatile vessel that was seen within the ulcer itself. Status post 3 cc gastrointestinal spot tattoo was deployed. Colonoscopy was normal with no blood seen in the terminal ileum. She was transported to [facility] for further treatment. Hospital Course Patient is a 71-year-old female with a history of CVA, ESRD not on dialysis, HTN , dementia, and bipolar d/o who arrived to the ED via EMS from [facility] assisted living due to increasing aggressive behavior. She is admitted for her AMS and also a workup for profound anemia present on admission. #Acute encephalopathy, POA, Improved Reported aggressive behaviors on top of her baseline dementia at the [facility], Ddx delirium vs uremic encephalopathy vs hypoglycemic episodes She is alert and oriented now, although her baseline dementia and bipolar d/o is likely causing her to have labile mood and irregular fixated behaviors. #Anemia, POA, acute on chronic, stable Patient has history of upper GI bleed with arterial bleeding, last admitted to [facility] 09/24/16. Had embolization at [facility] -EGD performed on 11/07. GI recommends PPI. There were no biopsies taken during EGD -S/p 2 units of pRBC during hospital stay. H&H has been stable afterwards. #Hypothermia, hypoglycemia, acute, POA Patient BG in ED 41, s/p multiple D50, followed by D5 1/2 NS at 75 mls/hr, unclear etiology so far. -Patient was initially hypoglycemic on admit, improved as above. She was also hypoglycemic while she was NPO for her procedures and had to be placed on D10w. -She was then evaluated by Speech Therapy and placed on dysphagia mechanical diet with pureed or thicken liquids and crushed meds. Blood glucose were low normal limit, but stable after discharge of D10w and resuming PO intake. #Hyperkalemia, POA, S/p cocktails for hyperkalemia, d5/insulin/neb/kayaxlate on admission. K wnl today. #KAMILLE on Chronic Kidney Disease, POA Stage IV kidney disease being followed by Dr. Araya in the clinic. [id number] stable. -Held Furosemide and amlodipine on admission -Appreciate nephrology input regarding initiation of HD, Patient is s/p tunnel cath and outpatient HD will be initiated. -Avoid renal toxins, continue other recs per Nephrology team -This descended into ESRD and patient had a tunnel catheter placed and Hemodialysis initiated. She had 3 episodes of HD during the hospitalization, which greatly improved her metabolic derangements and uremia. chronic, stable, 5. Elevated troponin, chronic, present on admission, Chronically elevated in the setting of CKD, 6. Chronic GERD, Present on admission, continue pepcid q24h CODE STATUS: Discussed resuscitation status with patient, patient wishes to be full code. DVT prophylaxis: SCD, Exam Vital Signs (Last) Date Time Temp Pulse Resp B/P Pulse Ox O2 Delivery O2 Flow Rate FiO2 11/10/16 13:20 58 18 150/66 97 Room Air 11/10/16 04:36 36.3 11/07/16 17:48 2.00 Exam General: AOx3 HEENT: Mucosa pink and moist, sclera anicteric Chest & Lungs: no wheeze, no crackles, mild Coarse breath sounds, normal effort. Cardiovascular: RRR with soft systolic murmur noted Abdomen: Non-tender, Non-distended, No masses, Normoactive bowel tones, Soft Musculoskeletal: Moves all extremities Extremities: No cyanosis/clubbing/edema bilaterally, trace peripheral edema noted. Neurological: Speech is slow and disoriented at times. Psych: Labile mood, fixated on going home today Test 11/05/16 07:50 11/05/16 07:55 11/05/16 10:30 11/05/16 12:30 Urine Color Straw (YELLOW) Urine Appearance Hazy (CLEAR,HAZY) Urine pH 6.0 (5.0-8.0) Urine Specific [place] 1.020 (1.003-1.035) Urine Protein 100mg/dL (NEG,TRACE) Urine Glucose (UA) Negativemg/dL (NEGATIVE) Urine Ketones Negativemg/dL (NEGATIVE) Urine Occult Blood Negative (NEGATIVE) Urine Nitrite Negative (NEGATIVE) Urine Bilirubin Negative (NEGATIVE) Urine Urobilinogen Normalmg/dL (NORMAL) Urine Leukocyte Esterase Negative (NEGATIVE) Urine RBC 0-2/hpf (0-2) Urine WBC 0-5/hpf (0-5) Urine Epithelial Cells Occasional/hpf (NONE-MOD) Urine Crystals Amorphous urates (NONE Urine Bacteria None/hpf (NONE-FEW) Urine Hyaline Casts Occasional/lpf (NONE) Urine Granular Casts None seen (NONE SEEN) Urine Waxy Casts None seen (NONE SEEN) Urine Red Blood Cell Casts None seen (NONE SEEN) Urine White Blood Cell Casts None seen (NONE SEEN) Urine Mucus None seen (None Seen) Urine Trichomonas None seen (NONE SEEN) Urine Yeast None (NONE SEEN) Urinalysis Comment Transitional epi Urine Culture Reflexed Not indicated Prothrombin Time 10.2sec (8.1-12.5) Prothromb Time International Ratio 0.95ratio Lactic Acid Level 0.6mmol/L (0.4-2.0) Troponin T 0.032ug/L (0.0-0.011) Pro-B-Type Natriuretic Peptide 1618pg/mL (0-301) Test 11/05/16 17:55 11/05/16 18:11 11/06/16 05:35 11/06/16 08:30 Reticulocyte Count,Calculated 1.7% (0.6-2.6) Iron Level 81ug/dL (35-150) Total Iron Binding Capacity 281ug/dL (250-450) Percent Iron Saturation 29%sat (15-50) Unsaturated Iron Binding 200.0ug/dL Ferritin 542ng/mL (13-150) Vitamin B12 Level 1362pg/mL (211-946) Folate 4.2ng/mL (>3.0) Hold Urine Received (Received) Vitamin D 25-Hydroxy 32.8ng/mL (30.0-100.0) Procalcitonin 0.07ng/mL (See Comment) Parathyroid Hormone (Intact) 265pg/mL (15-65) Thyroid Stimulating Hormone (TSH) 3.800uIU/mL (0.450-4.500) Free Thyroxine 1.27ng/dL (0.82-1.77) Cortisol 10.4ug/dL (.) Test 11/07/16 05:12 11/10/16 05:20 Estimat Glomerular Filtration Rate 18mL/min (>59) Magnesium Level 3.3mg/dL (1.6-2.6) Total Bilirubin 0.3mg/dL (0.0-1.2) Aspartate Amino Transf (AST/SGOT) 19U/L (0-50) Alanine Aminotransferase (ALT/SGPT) 15U/L (0-32) Alkaline Phosphatase 160U/L (25-165) Total Protein 5.0g/dL (6.4-8.4) Hepatitis B Surface Antigen Negative (Negative) Hepatitis B Surface Antibody Non reactive (.) Hepatitis B Core Total Antibody Negative (Negative) White Blood Count 7.8th/mm3 (3.8-10.1) Red Blood Count 3.41mil/mm3 (3.90-5.20) Hemoglobin 10.1g/dL (12.0-15.6) Hematocrit 31.6% (35.0-46.0) Mean Corpuscular Volume 92.7fL (81-100) Mean Corpuscular Hemoglobin 29.6pg (27.0-35.0) Mean Corpuscular Hemoglobin Concent 32.0% (32.0-37.0) Red Cell Distribution Width 17.6% (12.3-15.4) Platelet Count 109bil/L (150-400) Neutrophils (%) (Auto) 83.9% (40-74) Lymphocytes (%) (Auto) 7.9% (14-46) Monocytes (%) (Auto) 6.5% (4-12) Eosinophils (%) (Auto) 1.1% (0-5) Basophils (%) (Auto) 0.1% (0-3) Sodium Level 139mEq/L (134-144) Potassium Level 3.7mEq/L (3.5-5.2) Chloride Level 103mEq/L (97-108) Carbon Dioxide Level 24mmol/L (18-29) Blood Urea Nitrogen 9mg/dL (8-27) Creatinine 1.77mg/dL (0.57-1.00) Glucose Level 84mg/dL (60-99) Calcium Level 9.7mg/dL (8.5-10.1) Phosphorus Level 2.6mg/dL (2.5-4.9) Albumin 3.1g/dL (3.4-5.0) Discharge Medications Discharge Medications Amlodipine (Amlodipine) 10 Mg Tablet 10 MG PO DAILY (Reported) Ascorbic Acid (Vitamin C) 250 Mg Tab.chew 250 MG PO DAILY (Reported) Ferrous Sulfate (Ferrous Sulfate) 325 Mg Tablet 325 MG PO DAILY (Reported) Hydroxyzine HCl (HydrOXYzine Hcl) 50 Mg Tablet 50 MG PO q 8 hours (Reported) Pantoprazole DR (Pantoprazole DR) 40 Mg Tablet.dr 40 MG PO BID (Reported) Sucralfate (Sucralfate) 1 Gm Tablet 1 GM PO q6 hours (Reported) As needed Acetaminophen (Acetaminophen) 325 Mg Capsule 325 MG PO q6 hours PRN PRN For Pain (Reported) Bisacodyl (Dulcolax Rectal) 10 Mg Supp.rect 10 MG RC DAILY PRN PRN For Constipation (Reported) Dextran 70/Hypromellose/Pf (Artificial Tears Drops) 1 Each Droperette 2 DROP BOTH_EYES prn PRN PRN dry eyes (Reported) Magnesium Hydroxide (Milk of Magnesia) 400 Mg/5 Ml Oral.susp 400 MG PO DAILY PRN PRN For Constipation (Reported) Na Phos,M-B/Na Phos,Di-Ba (Fleet Enema) 133 Ml Enema 133 ML RC DAILY PRN PRN For Constipation (Reported) Ondansetron (Zofran) 4 Mg Tablet 4 MG PO q6 hours PRN PRN For Nausea (Reported) Additional med instructions Please resume your home medications as instructed. Followup Plan [facility] Follow-up plan Will require HD on Sunday 11/12 Discharge Diet: Other (dysphagia mechanical textures, nectar thick liquid) Discharge Activity: Other (Per discharge facility) Patient Instructions [facility] You will need to have Hemodialysis on Sunday 11/12. If patient's behavior is altered, please monitor blood glucose and give oral sugar as appropriate. Please follow up with your doctor in 1 week. Follow-up Provider: Atul Love MD Follow-up with PCP in: 1 week Provider: Danielle Rodgers MD Follow-up in: 4 weeks Time spent 35 minutes Attending Statement The patient was seen and examined together with Dr. Humphries on 11/10/2016 and I agree with the findings, assessment and plan as stated above. copies to: Atul Love MD, Hong D DO Nov 10, 2016 13:27 Abran Wilde MD Nov 11, 2016 13:02
--- NOTE | 2016-11-10 13:55 | NUR ---
Discharge Pt d/c to - at 1319 via by staff. Pt denied pain. IV dc/ prior to leaving. Tunneled cath on R side of chest C/D/I. Pacer on L side of chest covered with healthy appearing skin. Incision line appears new-er & red. All personal belongings left with pt. Pt denied having questions. Report called to , given to nurse Busch at 1400. Info included NEXT dialysis date which is Sat at 0900. Addendum: 11/10/16 at 1405 by HENNA FISHER RN 5 attempts made by 3 staff members to get pts temperature, pt refused a rectal route. Ax and oral weren't successful. Receiving nurse aware. other vitals wnl.
[2017-03-21] MEDS ORDERED: BISA10SU61 RC (13:49)
[2017-03-21] MEDS ORDERED: MAGN400O4 PO (13:49)
[2017-03-21] MEDS ORDERED: CINA30TA PO (13:49)
[2017-03-21] MEDS ORDERED: SEVE800T7 PO (13:49)
== END 2016-11-10 13:20 | DRG 682 ==
LOC: EDUNIT# 07:27 → EDBD 07:27 → SED 07:27 → MPC 17:16
PROVIDERS: ADMIT Internal Medicine; ATTEND Internal Medicine
PROC: 5A1D00Z (ICD-10-PCS; 2016-11-07)
PROC: 0DJ08ZZ Inspection of Upper Intestinal Tract, Via Natural or Artificial Opening Endoscopic (ICD-10-PCS; 2016-11-07)
PROC: B513ZZA Fluoroscopy of Right Jugular Veins, Guidance (ICD-10-PCS; 2016-11-07)
PROC: 05HM33Z Insertion of Infusion Device into Right Internal Jugular Vein, Percutaneous Approach (ICD-10-PCS; principal; 2016-11-07 14:45)
PROC: 5A1D00Z (ICD-10-PCS; 2016-11-08)
PROC: 5A1D00Z (ICD-10-PCS; 2016-11-09)
DX: N18.6 End stage renal disease (principal); G93.40 Encephalopathy, unspecified; E87.2 Acidosis; F03.91 Unspecified dementia, unspecified severity, with behavioral disturbance; D62 Acute posthemorrhagic anemia; E87.5 Hyperkalemia; N17.9 Acute kidney failure, unspecified; K21.9 Gastro-esophageal reflux disease without esophagitis; I12.0 Hypertensive chronic kidney disease with stage 5 chronic kidney disease or end stage renal disease; Z86.73 Personal history of transient ischemic attack (TIA), and cerebral infarction without residual deficits; Z87.891 Personal history of nicotine dependence; Z95.0 Presence of cardiac pacemaker; D63.1 Anemia in chronic kidney disease; E16.2 Hypoglycemia, unspecified; F31.9 Bipolar disorder, unspecified; K26.9 Duodenal ulcer, unspecified as acute or chronic, without hemorrhage or perforation

== ENCOUNTER 2016-11-14 15:32 | Inpatient (IN) | payer MEDICARE, MEDICAID ==
[~2016-11-14] VITALS: Ht 152.4 cm; Wt 52.5 kg
[~2016-11-14 15:32] MED LIST changes: +ACET325C PO; +ASCO250T7 PO; +BISA10SU61 RC; -CALC0.257 PO; +DEXT1DRO8 BOTH_EYES; -ERGO500050 PO; +FERR-83 PO; -FOLI0.8T2 PO; -FUR20 PO; +HYDR50TA76 PO; +MAGN400O4 PO; +NA P133E23 RC; +ONDA4TAB6 PO; +PANT40TA3 PO; +SUCR1TAB PO
[2016-11-14 17:54] VITALS: BP 126/76; PULSE 62; RESP 18; O2SAT 96
[2016-11-14 18:17] VITALS: PULSE 61
[2016-11-14] MEDS ORDERED: [UNRECOGNIZED DRUG - CODE] IV (18:26)
[2016-11-14] MEDS ORDERED: ONDA4TAB6 PO (18:30)
[2016-11-14] MEDS ORDERED: 0.9% Sodium Chloride 100 ML ONE (20:11)
[2016-11-14] MEDS: cefTRIAXone Inj 1,000 MG in Dextrose 5% Minibag Plus 50 ML IV SCH (20:15)
[2016-11-14 21:03] VITALS: BP 117/66; PULSE 56; RESP 18; O2SAT 93
--- NOTE | 2016-11-14 21:29 | NUR ---
diet verified with Dr. Sales re: pt's diet and her lipase level. Dr. mcqueen order labs and ordered to give diet slowly. Pt tried apple sauce w/o abdominal pain. pt to try soup. Report given to KARIME Jaeger and will resume care.
--- NOTE | 2016-11-14 22:09 | PCM.HPMED ---
Subjective Date of Service Nov 14, 2016 Primary Provider: Admitting Physician: Rubia Sales MD Primary Care Physician: Mis Attending Physician: Rubia Sales MD Chief Complaint: Sent from [facility] for dialysis History of Present Illness: Patient is a 71-year-old female with a history of CVA, ESRD on dialysis, HTN, dementia, and bipolar d/o p/w behavioral changes Patient was originally admitted last night to [facility], sent from [facility] assisted living facility, main reason was patient was agitated, as per provider at [facility] patient received Ativan, Zyprexa 5 mg twice IM for agitation, then deeply sedated afterwards. Patient received dialysis 4 times. UA was positive with positive leukocyte esterase, pyuria, pending urine culture was gram-negative jason >10^5, therefore it was thought to be UTI causing altered mental status, she received Rocephin yesterday and today. Today morning, patient woke up, more alert and oriented. Pt also had elevated lipase 900s on admission, decreased to 700s this AM, was not able to perform any meetings because patient was agitated. Patient was scheduled to have further workups for elevated lipase, but given the necessity of dialysis, patient was recommended to transfer to our facility by . no abdominal images were obtained. Most recent labs at [facility] today wbc4.6, h/h8.8/27. zji129, Na140, K3.4, cl101, bun /cr 11/1.74, [id number] negative. EKG atrial pacing. no images were done. Of note, pt was recently hospitalized here 11/05- with similar episode of acute encephalopathy, likely delirium vs uremia, during this hospital course, dialysis was initiated. Hospital course was also complicated by unclear etiology of hypothermia and hypoglycemic event, hyperkalemia with KAMILLE on CKD. Upon arrival to [facility], pt denied any abdominal pain, still mildly drowsy but AAOx3 , feels hungry, ROS: Denied fever or chills chest pain, palpitations, cough, phlegm, dysuria, frequency, urgency Review of Systems: Pertinent positives as noted in history of present illness. All other systems were reviewed and are negative Allergies Coded Allergies: Penicillins (Verified Allergy, Severe, ?, 11/05/16) Home Medications Tylenol 650 every 6 when necessary Amlodipine 10 mg daily Vitamin C 250 daily Ceftriaxone 1 g IV daily Artificial tear Ferrous sulfate 325 daily Milk of magnesia 400 mg daily when necessary Zofran 4 mg by mouth every 6 when necessary Pantoprazole 40 mg twice a day Sucralfate 1 g every 6 PMH PMH Anxiety Probable dementia Renal failure - 14% function as of late August, Bipolar Hypertension Depression Surgical History left carpal tunnel release parathyroid surgery Appendectomy, Tonsillectomy Pacemaker insertion, Tubal ligation Family History No family history of DM, CVD, HTN Social History Occupation: retired Hx Alcohol Use: Yes (history of alcohol abuse, quit 28 years ago) Hx Substance Use: No Hx Tobacco Use: Yes (30 years smoking history, quit 2 years ago) Smoking Status: Former Smoker Social History Hx Alcohol Use: Yes (history of alcohol abuse, quit 28 years ago) Hx Substance Use: No Hx Tobacco Use: Yes (30 years smoking history, quit 2 years ago) Smoking Status: Former Smoker Exam Vital Signs Vital Sign - Last Date Time Temp Pulse Resp B/P Pulse Ox O2 Delivery O2 Flow Rate FiO2 11/14/16 17:54 35.9 62 18 126/76 96 Room Air Exam NAD, comfortably laying down on the bed no JVD, MMM, no LAD RRR, nl s1, s2 no mrg, right upper chest tunneled cath sterile dressed CTAB, no w,c S,ND,NT,normoactive BS+ warm, no edema, pulses 2/2 Assessment & Plan Acute, active #Acute encephalopathy, presented at [facility], resolved already here, likely due to UTI, pt was sedated with benzo/zyprexa, now AAOx2 seems at baseline. -continue abx below, frequent neuro check -trends fever curve, wbc #UTI, POA, based on UCX done at [facility] -will continue Rocephin1 g daily -follow up tomorrow or day after regarding final result, UA/UCX were not repeated here #elevated lipase, POA, 900 to 700s at [facility], -trends tomorrow AM, given benign abdomen, no sx, unlikely pancreatitis -consider abdominal imaging if pt is symptomatic chronic, stable #ESRD on HD, POA, continue dialysis tomorrow as scheduled, follow up with renal team #anemia, Patient has history of upper GI bleed with arterial bleeding, last admitted to [facility] 09/24/16. Had embolization at [facility], during last hospitalization , EGD performed on 11/07. There were no biopsies taken during EGD, S/p 2 units of pRBC during hospital stay. H&H has been stable afterwards. -h/h mildly dropped from baseline h/h, monitor h/h for now, no signs of active GIB #Anxiety, depression, bipolar, resume home meds after med rec Hypertension, resume home med dispo:Patient will be admitted with inpatient status with expectation of inpatient therapy for more than 2 midnights diet: Renal diet dvt ppx: HSQ Full code Time spent 65 minutes Rubia Sales MD Nov 14, 2016 18:18
[2016-11-14] MEDS ORDERED: Artificial Tears 15 mL Ophthalmic Solution BOTH_EYES PRN (22:25)
[2016-11-15] VITALS (9 sets, daily range): BP systolic 82–170; BP diastolic 57–82; PULSE 55–62; RESP 18–20; O2SAT 94–97
[2016-11-15 06:43] LABS: BASOPHILS % (AUTO) 0.1 % (0-3); EOSINOPHILS % (AUTO) 0.3 % (0-5); MONOCYTES % (AUTO) 1.8 % (4-12); Mean Corpuscular Hemoglobin 30.1 pg (27.0-35.0); Mean Corpuscular Volume 94.5 fL (81-100); NEUTROPHILS % (AUTO) 95.8 % (40-74); Platelet Count 152 bil/L (150-400)
[2016-11-15 07:09] LABS: Magnesium 2.3 mg/dL (1.6-2.6); Phosphorus 3.6 mg/dL (2.5-4.9)
[2016-11-15] MEDS: Sucralfate 1,000 mg Tablet PO SCH ×4 (07:49→22:03)
[2016-11-15] MEDS: Ascorbic Acid 500 mg Tablet PO SCH (07:50)
--- NOTE | 2016-11-15 13:07 | CONS ---
[address] [address] CONSULTATION REPORT PATIENT: AMELIE CEDEÑO : 1945 MR#: [id number] ADMIT: 11/14/2016 JOB ID: [id number] DATE OF SERVICE: HISTORY: The patient is a 71-year-old, white female who is well known to me from previous evaluations both in the hospital in outpatient. She has a history of recent end-stage renal disease and renal consultation is being sought for further evaluation and management of her chronic kidney disease. The patient recently began dialysis secondary to end-stage renal disease. She normally dialyzes Saturday, and Saturday. She was admitted to [facility] from [facility] because of agitation and apparent mental status change. At the time of admission, her urinalysis was positive for pyuria and culture revealed gram-negative rods. She received several doses of Rocephin. During her evaluation she was also complaining of some vague abdominal pain, and her serum lipase was found to be elevated at 900. The patient is an extremely poor historian and reviewing her inpatient medications, I do not see where she is on furosemide. Since that time, she has had a marked decrease in her lipase, and the patient today states that she has no complaints. She has not had a history of any type of gallbladder surgery and is unable to tell me if she has had any food intolerance. She denies any abdominal pain, nausea, vomiting. She is an extremely poor historian. PAST MEDICAL HISTORY: Significant for: 1. Longstanding history of multiple psychiatric illnesses including bipolar disorder. 2. Possible dementia with psychotic features. 3. End-stage renal disease-dialysis dependent. 4. Hypertension with hypertensive heart disease. 5. Hypertensive nephrosclerosis. 6. Chronic interstitial nephritis. PAST SURGICAL HISTORY: Significant for: 1. Left carpal tunnel release. 2. Appendectomy. 3. Tonsillectomy. 4. Pacemaker insertion. 5. Tubal ligation. 6. Some type of parathyroid surgery. ALLERGIC: PENICILLIN. SOCIAL HISTORY: There is a remote history of alcohol abuse. There is also a remote history of tobacco use and she quit several years ago. She currently is at [facility]. FAMILY HISTORY: Unobtainable. REVIEW OF SYSTEMS: As detailed above, otherwise is unobtainable. HOME MEDICATIONS: Not available at time of this dictation. PHYSICAL EXAMINATION: Revealed a well-developed 71-year-old, white female, who was animated but no complaints. Her temperature was 36.7, pulse was 56, respiratory rate was 19, blood pressure was 118/68. HEENT examination is remarkable for pale sclerae. Mucous membranes were moist. Neck is supple without adenopathy, thyromegaly or jugular venous distention. Lungs are clear to auscultation. Heart was regular and rhythmic although bradycardic. Abdomen showed some diminished bowel sounds and there was no focal tenderness, rebound, masses or hepatosplenomegaly. Extremities did not show any clubbing, cyanosis or edema. LABORATORY: Her morning lab today shows a white count of 9.1, hemoglobin of 8.7, hematocrit 27.3. Red cell indices, platelet count and differential were remarkable only for 95% neutrophils. Her morning chemistry showed a sodium of 138, potassium 3.8, chloride of 100, CO2 of 24. BUN and creatinine were 16 and 2.5 respectively. Her albumin is 2.7 and her lipase is 93. Alkaline phosphatase is elevated at 180. IMPRESSION: 1. End-stage renal disease-dialysis dependent. 2. Cystitis. 3. Pancreatitis. 4. Chronic interstitial nephritis. RECOMMENDATION: I will make arrangements for her dialysis today. She is to be dialyzed for 3 1/2 hours on a three potassium bath in a rubber clear dialyzer. We will give her a 1000 units of heparin in 500 now and try to take 1-2 kg of fluid off. I would also like to obtain a gallbladder ultrasound to see if there is any cholecystitis present. Once again, I would like to thank you for allowing me to participate in the care of this most pleasant and interesting patient. I will be following her closely with you. Cc: Dialysis Unit
--- NOTE | 2016-11-15 15:28 | NUR ---
Dialysis/ABD ultrasound Patient remains alert and confused today. Patient showed no signs of agitation. Patient had order for dialysis today. Patient report was given to [facility] nurse. Patient was transferred to [facility] dialysis room 244. Patient will be NPO after midnight for ABD ultrasound tomorrow morning.
--- NOTE | 2016-11-15 16:14 | PCM.PNMED ---
Subjective Date of Service Nov 15, 2016 Subjective Patient was examined at bedside today. Patient denies any chest pain, shortness of breath, nausea, vomiting, diarrhea. Patient reports dysuria. Exam Vital Signs Vital Sign - Last Date Time Temp Pulse Resp B/P Pulse Ox O2 Delivery O2 Flow Rate FiO2 11/15/16 13:01 61 11/15/16 09:44 36.7 19 118/68 97 Room Air Exam Physical Exam: GEN: Patient was awake, alert, responding appropriately to questions HEENT: PERRLA, EOMI, Neck soft supple, trachea midline, nomocephalic/atraumatic CV: +S1/S2, RRR, no murmurs auscultated Respiratory: CTAB, no wheezes, rales, rhonchi GI: +bowel sounds x4, soft, compressible, non TTP EXT: no c/c/e Neuro: CN II-XII grossly intact Psych: mood and affect were appropriate IVs and Medications Medications Reviewed: Medications were reviewed in detail Medications Current Medications Ceftriaxone Sodium/Dextrose/ Water 50 ml @ 100 mls/hr Q24H IV Last administered on 11/14/16 20:15; Admin Dose 100 MLS/HR; Start 11/14/16 at 18:30 Ferrous Sulfate 325 mg DAILY PO Last administered on 11/15/16 07:49; Admin Dose 325 MG; Start 11/15/16 at 08:30 Pantoprazole 40 mg BID PO; Start 11/15/16 at 20:30 Sucralfate 1,000 mg ACHS PO Last administered on 11/15/16 10:59; Admin Dose 1, 000 MG; Start 11/15/16 at 07:30 Acetaminophen 650 mg Q6H PRN PO; Start 11/14/16 at 22:20 Amlodipine Besylate 10 mg DAILY PO Last administered on 11/15/16 07:49; Admin Dose 10 MG; Start 11/15/16 at 08:30 Ascorbic Acid 250 mg DAILY PO Last administered on 11/15/16 07:50; Admin Dose 250 MG; Start 11/15/16 at 08:30 Artificial Tears 2 drop PRN PRN BOTH_EYES; Start 11/14/16 at 22:25 Hydroxyzine HCl 50 mg Q8H PO Last administered on 11/15/16 06:10; Admin Dose 50 MG; Start 11/14/16 at 22:10 Ondansetron HCl 4 mg Q6H PRN PO; Start 11/14/16 at 22:25 Lab and Diagnostics Result Diagram: 11/15/16 0553 11/15/16 0553 Assessment & Plan Patient is a 71-year-old female with a history of CVA, ESRD on dialysis, HTN, dementia, and bipolar d/o p/w behavioral changes Acute, active Acute encephalopathy, presented at [facility] [place], resolved already here, likely due to UTI , pt was sedated with benzo/zyprexa, now AAOx2 seems at baseline. -This seems to have resolved the patient is now at her baseline mentation -Continue antibiotics We will continue to trend the white blood cell count and temperature UTI, POA, based on UCX done at [facility] [place] -will continue Rocephin1 g daily -We will continue to monitor the patient for symptom relief Elevated lipase, POA, 900 to 700s at [facility] [place], -Lipase today was 93 less likely this is pancreatitis End-stage renal disease -Patient currently on dialysis Dr. Araya has been consulted and scheduling the patient's dialysis Anemia with a history of upper GI bleeding -Currently no signs of bleeding -Patient's H&H is 8.7/27.3 -We will continue to monitor chronic, stable Anxiety, depression, bipolar -Continue resume home meds Hypertension -Continue home medications dispo: Patient is currently being treated for her encephalopathy most likely secondary to the UTI. Patient will be treated for the UTI as well as dialyzed while inpatient. Dr. Araya has been consulted and appreciate his recommendations. diet: Renal diet dvt ppx: HSQ Full code VTE Mechanical Devices: Intermittant Pneumatic CD Time spent Greater than 35 minutes Carine Dixon DO Nov 15, 2016 16:13
--- NOTE | 2016-11-15 16:37 | NUR ---
Inpatient dialysis Patient transported by bed to room 244-1. Report received from Travis Merino RN. Received dialysis. Restless at times. Son in to vist while patient was sleeping. Patient removed SL. Replaced SL. Report given to Travis Merino RN, awaiting transport. Addendum: 11/15/16 at 1645 by HUBERT BURNETT RN Patient left in hospital bed. wind energy technician notified.
--- NOTE | 2016-11-15 16:45 | NUR ---
Dialysis note: 3 1/2 hrs tx. 1000 ml net UF. Right catheter, dsg changed, no s/s of infection noted. Pls see DTR for VS details. Qb 400. Heparin given. O2 @ 2L via NC on. Pt awake and alert but gets confused and asks the same questions repeatedly; calling out loud at times. Stable tx. Catheter flushed, heparin dwelled and secured. Report given to Dayna SCHAFFER. Stable at time of transfer.
[2016-11-15] MEDS: cefTRIAXone Inj 1,000 MG in Dextrose 5% Minibag Plus 50 ML IV SCH (17:44)
[2016-11-15] MEDS: Pantoprazole 40 mg ER24 Tablet PO SCH (22:03)
[2016-11-16] VITALS (8 sets, daily range): BP systolic 140–163; BP diastolic 62–73; PULSE 60–73; RESP 19–20; O2SAT 93–96
--- NOTE | 2016-11-16 06:16 | NUR ---
Behavior/Sitter Patient has been yelling at staff, making rude comments, not making any sense at all. Patient has removed dressing x 2 from dialysis port. Sitter was requested and has been at patient bedside.. Addendum: 11/16/16 at 0631 by AMELIE CHAWLA RN Behavior/ Family Concerns Per patients' son by telephone patient has been having this behavior for the past month. Many hospital stays, two surgeries, starting dialysis. Patient does not tolerate many behavior anxiety medications. Son is requesting a [facility] consult to find a better medication management for her anxiety and bipolar history. Addendum: 11/17/16 at 1107 by SHADE MAN RN Late Entry: Of note, a sitter was with this pt until 0645 on 11/16/16 and was not required afterwards.
[2016-11-16 07:00] LABS: Mean Corpuscular Volume 93.1 fL (81-100)
--- NOTE | 2016-11-16 09:08 | DRSVH ---
PROCEDURE: US ABDOMEN INDICATIONS: acute pancreatitis TECHNIQUE: Real-time scanning was performed of the abdominal and retroperitoneal organs, with image documentatio n. COMPARISON: [facility] Ultrasound, US, US RENAL, 06/26/2016, 11:36. FINDINGS: Liver length: 13.49 cm Gallbladder Wall Thickness: 2.70 mm CBD: 5 mm. Spleen length: 9.6 cm Right kidney length: 9.93 cm Left kidney length: 7.93 cm Aorta(Proximal): 1.33 cm Liver: Liver is diffusely increased in echogenicity. No focal hepatic abnormalities identified. No rmal hepatic size. Gallbladder: Sludge filled gallbladder otherwise no gallbladder wall thickening. Biliary ducts: Intrahepatic bile ducts are non-dilated. Extrahepatic bile duct caliber is normal. Normal is 6-7 mm or less in diameter, or 10 mm or less post-cholecystectomy. Pancreas: Visualized portions of the pancreas are sonographically normal. Spleen: Spleen is normal in size and homogeneous in echotexture. Kidneys: Kidneys are normal in size and cortical echogenicity is increased bilaterally. No hydronep hrosis or nephrolithiasis. No solid masses. Bilateral renal cysts redemonstrated. Aorta: Visualized aorta is normal in caliber at less than 3 cm. Iliacs: Not visualized. IVC: Intrahepatic inferior vena cava is patent. Miscellaneous: No free abdominal fluid. IMPRESSION: 1. Increased hepatic echogenicity noted likely related to fatty infiltration of the liver but other s ources of hepatocellular disease cannot be excluded. Recommend clinical correlation. 2. Increased renal cortical echogenicity redemonstrated consistent with medical renal disease and sheryl ateral renal cysts redemonstrated. Dictated by: Obdulio Galdamez [facility] Interpreted: Melody Cox MD on 11/16/2016 at 9:06 Transcribed by: EMPERATRIZ on 11/16/2016 at 9:08 Approved by: Melody Cox MD, PhD on 11/16/2016 at 16:45
--- NOTE | 2016-11-16 10:00 | NUR ---
KYLIE: Patient is unable to sign for self. asked RETAIL CASHIER ASSOCIATE to follow up via phone with MARU
[2016-11-16] MEDS: Pantoprazole 40 mg ER24 Tablet PO SCH ×2 (10:09→20:36)
[2016-11-16] MEDS: Sucralfate 1,000 mg Tablet PO SCH ×4 (10:09→22:15)
[2016-11-16] MEDS: Ascorbic Acid 500 mg Tablet PO SCH (10:10)
[2016-11-16] MEDS: hydrOXYzine Pamoate 25 mg Capsule PO SCH ×2 (10:16→16:52)
--- NOTE | 2016-11-16 12:08 | PCM.PNMED ---
Subjective Date of Service Nov 16, 2016 Subjective She remains a significant management issue. Unless there is somewhat failure such as a sitter 24 hours a day she is continuing to cry out, called up calling the police and trying to pull out her IV. I have asked psychiatry to see her as the outpatient dialysis unit is refusing to accept her back until her behavior is more appropriate. Exam Vital Signs Vital Sign - Last Date Time Temp Pulse Resp B/P Pulse Ox O2 Delivery O2 Flow Rate FiO2 11/16/16 09:13 36.4 64 20 140/67 96 Room Air Intake and Output 11/15/16 11/15/16 11/16/16 Cumulative From/Thru 15:00 23:00 07:00 11/14/16 17:55 - 11/16/16 05:59 Intake Total 1000 ml 1050 ml 200 ml 2250 ml Output Total 1600 ml 250 ml 1175 ml 3025 ml Balance -600 ml 800 ml -975 ml -775 ml Intake Oral 1000 ml 1050 ml 200 ml 2250 ml Output Urine Total 600 ml 250 ml 1175 ml 2025 ml Ultrafiltrate 1000 ml 1000 ml # Bowel Movements 1 0 1 Exam Clear to auscultation. Heart is regular rhythm with a soft systolic murmur. Abdomen soft benign tenderness or rebound guarding masses or hepatosplenomegaly. Extremities attachments and clubbing cyanosis or edema. Lab and Diagnostics Result Diagram: 11/16/1662411/16/16 0625 Assessment & Plan Impression #1 end-stage renal disease dialysis dependent #2 non-compos menti Recommendation #1 psychiatrist is planning on seeing the patient today and I appreciate his input. VTE Mechanical Devices: Intermittant Pneumatic CD Guru Araya DO Nov 16, 2016 12:08
--- NOTE | 2016-11-16 15:34 | NUR ---
Social Work: Initial Assessment attempted Data: Pt is a 71 y/o female admitted for UTI, agitation poss related to UTI. Pt's PCP is not listed, and pt's insurance is Medicare with [facility] supp. Pt readmit score not listed. EMR reviewed. PAD MACHINE OPERATOR called [facility], no answer, left a message regarding facilities ability to take her back at d/c. PAD MACHINE OPERATOR attempted to meet with pt, pt was very agitated and told PAD MACHINE OPERATOR to call her son. She did say she wants to go back to [facility]. PAD MACHINE OPERATOR attempted to call son at both phone numbers listed and left messages on both for him to call PAD MACHINE OPERATOR back. PAD MACHINE OPERATOR awaiting phone call. PAD MACHINE OPERATOR will continue to follow. Assessment: Pt from SNF. Plan: Pt will likely return to [facility]. PAD MACHINE OPERATOR will continue to follow and attempt to speak with son regarding d/c plan. LEON Hernandez
--- NOTE | 2016-11-16 15:39 | NUR ---
KYLIE KYLIE given over voice mail message to son. LEON Hernandez
--- NOTE | 2016-11-16 15:43 | PCM.PNMED ---
Subjective Date of Service Nov 16, 2016 Subjective Patient was examined at bedside today. The patient has been extremely demanding and nursing states that the patient was screaming throughout the night calling for nurses and stating that she was calling for help for the safety of the hospital. The patient does not seem to be completely back to her baseline status. The patient's son was present today and states that she seems more agitated and would like her to be back on her psychotropic medications which were discontinued due to renal failure. However now that the patient is on dialysis he would like to revisit placing the patient on psychotropic medications. Exam Vital Signs Vital Sign - Last Date Time Temp Pulse Resp B/P Pulse Ox O2 Delivery O2 Flow Rate FiO2 11/16/16 13:21 36.3 60 20 148/66 95 Room Air Intake and Output 11/15/16 11/15/16 11/16/16 Cumulative From/Thru 15:00 23:00 07:00 11/14/16 17:55 - 11/16/16 05:59 Intake Total 1000 ml 1050 ml 200 ml 2250 ml Output Total 1600 ml 250 ml 1175 ml 3025 ml Balance -600 ml 800 ml -975 ml -775 ml Intake Oral 1000 ml 1050 ml 200 ml 2250 ml Output Urine Total 600 ml 250 ml 1175 ml 2025 ml Ultrafiltrate 1000 ml 1000 ml # Bowel Movements 1 0 1 Exam Physical Exam: GEN: Patient was awake, alert, responding appropriately to questions HEENT: PERRLA, EOMI, Neck soft supple, trachea midline, nomocephalic/atraumatic CV: +S1/S2, RRR, no murmurs auscultated, port in place Respiratory: CTAB, no wheezes, rales, rhonchi GI: +bowel sounds x4, soft, compressible, non TTP EXT: no c/c/e Neuro: CN II-XII grossly intact Psych: mood and affect were appropriate IVs and Medications Medications Reviewed: Medications were reviewed in detail Medications Current Medications Ceftriaxone Sodium/Dextrose/ Water 50 ml @ 100 mls/hr Q24H IV Last administered on 11/15/16 17:44; Admin Dose 100 MLS/HR; Start 11/14/16 at 18:30 Ferrous Sulfate 325 mg DAILY PO Last administered on 11/16/16 10:12; Admin Dose 325 MG; Start 11/15/16 at 08:30 Pantoprazole 40 mg BID PO Last administered on 11/16/16 10:09; Admin Dose 40 MG ; Start 11/15/16 at 20:30 Sucralfate 1,000 mg ACHS PO Last administered on 11/16/16 10:09; Admin Dose 1, 000 MG; Start 11/15/16 at 07:30 Acetaminophen 650 mg Q6H PRN PO; Start 11/14/16 at 22:20 Amlodipine Besylate 10 mg DAILY PO Last administered on 11/16/16 10:09; Admin Dose 10 MG; Start 11/15/16 at 08:30 Ascorbic Acid 250 mg DAILY PO Last administered on 11/16/16 10:10; Admin Dose 250 MG; Start 11/15/16 at 08:30 Artificial Tears 2 drop PRN PRN BOTH_EYES; Start 11/14/16 at 22:25 Hydroxyzine HCl 50 mg Q8H PO Last administered on 11/15/16 22:03; Admin Dose 50 MG; Start 11/14/16 at 22:10; Stop 11/16/16 at 09:44; Status DC Ondansetron HCl 4 mg Q6H PRN PO; Start 11/14/16 at 22:25 Hydroxyzine Pamoate 50 mg Q8H PO Last administered on 11/16/16 10:16; Admin Dose 50 MG; Start 11/16/16 at 09:44 Lab and Diagnostics Result Diagram: 11/16/1662411/16/16 0625 Assessment & Plan Patient is a 71-year-old female with a history of CVA, ESRD on dialysis, HTN, dementia, and bipolar d/o p/w behavioral changes Acute, active Acute encephalopathy, presented at [facility] [place], resolved already here, likely due to UTI , pt was sedated with benzo/zyprexa, now AAOx2 -The patient seemed to have returned back to her baseline mentation however today the patient was extremely agitated and difficult to deal with today. -Continue antibiotics -We will continue to trend the white blood cell count and temperature UTI, POA, based on UCX done at [facility] [place] [place] -will continue Rocephin1 g daily -We will continue to monitor the patient for symptom relief Elevated lipase, POA, 900 to 700s at [facility] [place], -Lipase was 93 less likely this is pancreatitis End-stage renal disease -Patient currently on dialysis Dr. Araya has been consulted and scheduling the patient's dialysis Anemia with a history of upper GI bleeding -Currently no signs of bleeding -Patient's H&H is 8.7/27.3 -We will continue to monitor Anxiety, depression, bipolar -Psychiatry was consulted today and appreciate their recommendations -Psychiatry may restart the patient on low-dose risperidone Hypertension -Continue home medications Disposition: Patient seems to be a bit more agitated and her obsessive- compulsive behaviors have worsened since yesterday. The patient constantly wants to use the phone however does not know the phone number and continuously dials wrong phone numbers or phone numbers that do not have enough numbers. The patient consistently has been calling out to nurses and colon for help even though she does not need any help. The son states that this is what her behavior has spiraled down to and until this is controlled the patient is unable to continue with her dialysis therapy. Psychiatric consult has been placed and psych has evaluated the patient and agrees that the patient should be restarted on her psychotropic medication. We will continue to monitor the patient for altered mental status and once patient is back to her baseline mentation and is under better control she should be stable for discharge home. VTE Mechanical Devices: Intermittant Pneumatic CD Time spent Greater than 35 minutes Carine Dixon DO Nov 16, 2016 15:43
[2016-11-16] MEDS: cefTRIAXone Inj 1,000 MG in Dextrose 5% Minibag Plus 50 ML IV SCH (16:52)
[2016-11-16] MEDS ORDERED: Dextrose 5% 250 ML IV ONE (16:55)
--- NOTE | 2016-11-16 18:39 | CONS ---
[address] [address] CONSULTATION REPORT PATIENT: AMELIE CEDEÑO : 1945 MR#: [id number] ADMIT: 11/14/2016 JOB ID: [id number] DATE OF SERVICE: 11/16/2016 PSYCHIATRIC CONSULTATION: REFERRED BY: Dr. Guru Araya DO IDENTIFYING DATA: The patient is a 71-year-old female with a history of stroke, end-stage renal disease on dialysis, hypertension, dementia, and bipolar disorder with behavioral changes. She is referred due to agitation interfering with her ability to continue with dialysis. CHIEF COMPLAINT: "I am doing good. I do not need any psychological medications." HISTORY OF PRESENT ILLNESS: According to review of documents, the patient was admitted to [facility] after having been sent from [facility] and had received lorazepam and Zyprexa 5 mg IM twice due to agitation and was "deeply sedated" afterwards. The patient also had a urinalysis positive with positive leukocyte esterase, pyuria, and pending culture. The patient subsequently received Rocephin. The patient had been scheduled for further workup due to elevated lipase but given the necessity of dialysis she was transferred to [facility]. The patient was recently hospitalized at [facility] from November 05 to November 10 with a similar episode of acute encephalopathy. The patient reports that "my mind is clear." She was concerned that she would be transferred to the psychiatric unit and, once reassurance that this was not the goal of the interview, she was somewhat more cooperative. The patient's DPOA, Boo, her son, was present during most of the interview. The patient reported that she was concerned about others in the hospital and did not want them to be sick. She stated that a nurse that was with her said that her son was schizophrenic and that God did not love her and that she counseled her rather than the other way around. The patient has a history of bipolar disorder and was last treated as an inpatient at [facility] in 2004. At that time she demonstrated rapid pressured speech and a somatic preoccupation. At that time she was treated with Seroquel 400 at bedtime and Geodon 60 mg twice a day. Her son reports that this caused significant EPS, and so was eventually switched to risperidone, but reports this was stopped a couple of years ago due to apathy and daytime sedation. Of note, risperidone 2 mg was given in the morning rather than the evening. The patient reports her last manic episode was 20+ years ago, although clearly it was in at least 2004. The patient reports that she has been clean and sober for 31 years but had difficulty determining what year that would have been, even stating that was when her son was approximately 6 years old. She stated she believed her anniversary date was December 23, 1985 and her son is 45. These dates do not coincide with one another. The patient was also noted to have had an occipitoparietal infarct noted on brain MRI on October 18, 2015 with volume loss. The patient had had volume loss noted in 2004. Her most recent brain CT from November 05, 2016 demonstrated cerebral volume loss for age with resultant ventricular and sulcal prominence. There are periventricular and deep matter chronic small vessel ischemic changes. There is intracranial internal carotid artery atherosclerosis. There is a notation about prior medial left occipital posterior stroke with no acute disease. There was no supervisor records change time. She reports her appetite is normal and her sleep is normal. PAST PSYCHIATRIC HISTORY: Inpatient: The last was in 2004. Outpatient: The patient is not currently followed by a psychiatrist and appears to have deep distrust for psychiatrists. Psychiatric medications: According to the patient's son there were problems with using lithium and Depakote, and Seroquel and Geodon were ineffective. Risperdal 2 mg was effective for mood but caused apathy. Her primary care doctor is Dr. Alvarado. She denies a past history of suicide attempts or self-injurious behavior. She denies a family history of mental illness, suicide, substance abuse, or medical illnesses. SUBSTANCE ABUSE HISTORY: The patient reported beginning to use alcohol in her early 20s and had difficulty saying exactly when she began drinking heavily but sometime around her mid 30s. She reported that she had stopped drinking 31 years ago on December 23. She denies the use of cocaine, amphetamines, heroin, or other drugs. She has been enrolled in and denies a history of inpatient treatment, detox, DTs, or blackouts. She reports smoking 18 cigarettes per day but quit two and half years ago. SOCIAL HISTORY: The patient was born in [place], [place] and raised in [place], [place]. She has two sisters and is the youngest child. She is a high school graduate and has no college. She did not go into the . 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 She reports being for 40 years and has one child. She receives social security of approximately 700 dollars per month and food stamps. Although currently at [facility], she has an apartment in [place] and her son helps her with shopping and house upkeep. Her son and her 94-year-old grandmother are her social supports. She denies a history of physical, sexual, or emotional abuse. She denies a history of legal issues. PAST MEDICAL HISTORY: History of cerebral atrophy and microvascular changes as well as the posterior occipital stroke. History of hypoparathyroidism. Renal failure with 14% function as of late August 2016. Hypertension. History of left carpal tunnel release and parathyroid surgery. Appendectomy and tonsillectomy. Pacemaker insertion and tubal ligation. She denies a history of traumatic brain injury or seizure. ALLERGIES: PENICILLINS. Of note, the patient denies having any allergies. MENTAL STATUS EXAMINATION: Appearance: The patient is an elderly appearing female wearing a hospital gown, lying in bed. Behavior: The patient demonstrates good eye contact, with no psychomotor activation or retardation. She is apprehensive about talking with this individual initially, but then was pleasant and cooperative. Mood: "Fine." Affect: Suspicious and restricted. Speech: Normal rate, volume, and tone. Somewhat irritable with her son at times. [place] to be yelling out for her son when she believed that she was being spoken about. Content of thought: Denies suicidal or homicidal ideation, auditory or visual hallucinations, thought insertion, thought broadcasting, thought withdrawal, or ideas of reference. She rates her anxiety as 2/10 and her depression as 1/10. Memory: She had 3/3 object recall at 0 minutes, 1/3 object recall at 1 minute. The clock drawing was poor, with a quarter-sized clock, with numbers spiraling inward. The hands, interestingly enough, were placed at the correct locations more or less on the clock face, although they did not exactly correspond with the location of the numbers. Concentration: Serial sevens are as follows: 100, 93, 87, 80, 73, 63 or 64. She spelled the word "world" as [id number]. She was able to repeat the phrase "no ifs, ands, or buts." The distance across the [place] was several thousand miles. She reported the current presidentchristine Miranda and the preceding president was Andrew. Intelligence: Appears to be in the average range based upon history and vocabulary. Orientation: She was alert and oriented. Sensorium: The patient did not appear to be suffering from a delirium at this time but did appear to have neurocognitive changes consistent with her history. IMPRESSION: The patient is a 71-year-old female with a history of cerebrovascular accident, end-stage renal disease, on dialysis, hypertension, dementia, and bipolar disorder, who presented with mental status changes, possibly secondary to a urinary tract infection. She is now presenting with irritability, particularly in the evening, consistent with sundowning. We discussed low-dose risperidone and the patient at least at this time was agreeable and the patient's DPOA appeared to be supportive. She would likely benefit from a low dose in the evening of 0.5 mg and perhaps as needed during the day depending on her level of agitation. She does not appear to be suffering from a manic episode at this time, but rather behavioral changes related to her neurocognitive disorder secondary to atherosclerosis and stroke. PROVISIONAL DIAGNOSES: [place] I: 1. Bipolar disorder by history, in current remission. 2. 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 [place] II: Deferred. [place] III: See past medical history. [place] IV: Moderate. [place] V: Global Assessment of Functioning 40. PLAN: 1. Discussed with the POA and patient risperidone 0.5 mg at bedtime for agitation and residual symptoms of bipolar disorder with 0.25 mg twice daily as needed until the optimal dose is determined. 2. Would avoid benzodiazepines and daytime use of larger doses of antipsychotics given her sedation. The patient's apathy, noted by her son, may actually have been due to her parieto-occipital stroke rather than the risperidone, and so the dose may be able to be adjusted higher. 3. Please feel free to consult Psychiatry should you have any other questions. MTDD
[2016-11-16] MEDS: risperiDONE 1 mg Tablet PO SCH (19:16)
--- NOTE | 2016-11-16 19:22 | NUR ---
Confusion: Patient has been yelling and confused today. She sated that she was worried. about the people in the hospital getting hurt and she was worried about varying things that did not make sense. MD prescribed Risperidone to help patient sleep tonight. Med was given a little early to ensure that she would take it. Patient has been more calm this evening.
[2016-11-17] VITALS (9 sets, daily range): BP systolic 133–180; BP diastolic 68–90; PULSE 55–68; RESP 18–20; O2SAT 95–98
[2016-11-17] MEDS: hydrOXYzine Pamoate 25 mg Capsule PO SCH ×3 (01:29→17:51)
[2016-11-17] MEDS: risperiDONE 1 mg Tablet PO PRN ×2 (03:33→13:14)
--- NOTE | 2016-11-17 04:13 | NUR ---
Waste of Risperidone Risperidone 1mg tablet sent by pharmacy: 0.25mg administered at 0333, 0.75mg wasted with witness of charge nurse Catalina Mello.
[2016-11-17 04:28] LABS: APPEARANCE,URINE CLEAR (CLEAR,HAZY); COLOR,URINE STRAW (YELLOW); OCCULT BLOOD,URINE TRACE (NEGATIVE); UROBILINOGEN,URINE NORMAL (NORMAL)
--- NOTE | 2016-11-17 05:06 | NUR ---
Urine sample sent.
[2016-11-17 05:46] LABS: Mean Corpuscular Volume 94.5 fL (81-100)
--- NOTE | 2016-11-17 06:13 | NUR ---
Mental Status Patient alert, knows place, year,month and [place] president,states "I am not stupid." but she does not appear totally mentally clear,keep pushing call light button to choose TV channel despite instructed correct use. She appears fixed and Obsessive, focus one topic such as repeatedly talk about her bra, stuff used tissue into clean tissue box. Frequently make requests and get out of bed void at [facility] multiple times, generalized weakness, unsteady, need 1-2 Pa contact guard. Risperidone given at HS and around 0330, pt calm down and sleep some.
[2016-11-17] MEDS: Sucralfate 1,000 mg Tablet PO SCH ×4 (09:12→22:33)
[2016-11-17] MEDS: Pantoprazole 40 mg ER24 Tablet PO SCH ×2 (09:12→19:51)
[2016-11-17] MEDS: Ascorbic Acid 500 mg Tablet PO SCH (09:12)
--- NOTE | 2016-11-17 11:15 | NUR ---
Social Work: Readiness for d/c Data: Pt is on day 3 of hospitalization. EMR reviewed. Pt discussed in rounds, states pt likely to d/c today after dialysis this afternoon. EMISSIONS TESTING AND REPAIR TECHNICIAN called [facility] and explained that pt is now on risperidone, per Psych, and that she has been doing better behaviorally since starting that on 11/16. EMISSIONS TESTING AND REPAIR TECHNICIAN also notified [facility] that pt only had a sitter on night through Saturday morning around 7AM, and therefore has not had a sitter in over 24 hours. EMISSIONS TESTING AND REPAIR TECHNICIAN called LEON Hui with [facility] and left a message with her updating on pt's progress. EMISSIONS TESTING AND REPAIR TECHNICIAN spoke with main line at [facility] who states that pt is not on the schedule for dialysis due to her behaviors and that [facility] will have to call them on Saturday to start up services with them on Saturday. Pt is scheduled for dialysis this afternoon and the kidney center would like her to be set up for Saturday, , Saturday dialysis. EMISSIONS TESTING AND REPAIR TECHNICIAN will continue to follow. Assessment: Pt from [facility] rehab. Plan: Pt will d/c back to [facility], likely today, after dialysis. [facility] will set up dialysis appointment on Saturday for //Sat dialysis. EMISSIONS TESTING AND REPAIR TECHNICIAN will attempt to meet with pt's son today to complete initial assessment as he has not yet returned EMISSIONS TESTING AND REPAIR TECHNICIAN call from 11/16. EMISSIONS TESTING AND REPAIR TECHNICIAN will continue to follow. LEON Hernandez
--- NOTE | 2016-11-17 12:15 | NUR ---
Social Work: Continued d/c planning DIE TRY OUT WORKER attempted to call pt's son at both numbers listed, no answer, DIE TRY OUT WORKER left a message for him to either call DIE TRY OUT WORKER back to to meet at the hospital to go over these things. DIE TRY OUT WORKER will continue to follow. LEON Hernandez
--- NOTE | 2016-11-17 12:16 | PCM.PNMED ---
Subjective Date of Service Nov 17, 2016 Subjective Patient is a bit more calm and appropriate following medication with risperidone. I have discussed the case with Dr. Avila from psychiatry and appreciate his input with this patient. After dialysis she may be discharged to the extended care facility on twice daily risperidone. Exam Vital Signs Vital Sign - Last Date Time Temp Pulse Resp B/P Pulse Ox O2 Delivery O2 Flow Rate FiO2 11/17/16 10:46 36.4 60 18 146/68 97 Room Air Intake and Output 11/16/16 11/16/16 11/17/16 Cumulative From/Thru 15:00 23:00 07:00 11/14/16 17:55 - 11/16/16 20:21 Intake Total 200 ml 2450 ml Output Total 350 ml 3375 ml Balance -150 ml -925 ml Intake Oral 200 ml 2450 ml Output Urine Total 350 ml 2375 ml Ultrafiltrate 1000 ml # Bowel Movements 1 2 Exam Lungs are clear to auscultation. Heart is regular rhythmic: Soft systolic murmur. Abdomen is soft without any tenderness rebound guarding masses or hepatosplenomegaly. Extremities not showing any evidence of any clubbing, cyanosis, or edema. Lab and Diagnostics Result Diagram: 11/17/1652111/17/16521 Assessment & Plan Impression #1 end-stage renal disease dialysis dependent #2 Chronic interstitial nephritis #3 acute cystitis Recommendations #1 patient was dialyzed today on for 3-1/2 hours on a revaclear dialyzer, 2 potassium bath, 400 blood flow, 1200 and heparin at stroke treatment of 500 now or afterwards. We will try to take 1-3 kg off. VTE Mechanical Devices: Intermittant Pneumatic CD Guru Araya DO Nov 17, 2016 12:16
--- NOTE | 2016-11-17 13:18 | NUR ---
Mentation: Patient forgetful, continually asking when she is going to dialysis, wanting to get cloths on. Discussed multiple times with patient that dialysis nurse will call when she is ready. Dialysis nurse called to say she will be ready at 1330. Note written on white board as reminder to patient. Risperidone 0.25mg administered in preparation for dialysis.
--- NOTE | 2016-11-17 14:38 | NUR ---
Off Unit: Patient transported to [facility] room 244 for dialysis @ approx 1330 via bed. simulation technician notified.
--- NOTE | 2016-11-17 14:39 | NUR ---
Social Work: Initial Assessment Data: Pt is a 71 y/o female admitted for UTI, agitation. Pt's PCP is not listed. Pt's insurance is Medicare with [facility]. EMR reviewed. HARP REPAIRER met with pt's son who states that pt lives independently in [place], but has been as [facility] for rehab. Pt states she typically uses a walker, has no history of HH, no LTC or VA benefits, is not a caregiver, and does not drive. Pt is a dialysis pt. HARP REPAIRER will continue to follow. Assessment: Pt who is independent at baseline. Plan: Pt will d/c back to [facility] when medically stable. HARP REPAIRER will continue to follow. ELON Hernandez Addendum: 11/17/16 at 1442 by CODY RAYMOND SS Amended: Links added.
--- NOTE | 2016-11-17 14:42 | NUR ---
Social Work: Continued d/c planning Data: Pt is on day 3 of hospitalization. CONTRACTOR BUYER spoke with dialysis center who states they will not know until Saturday if they can get pt into their schedule next week. CONTRACTOR BUYER called [facility] to see if dialysis there could be a back up plan and they stated that they do not take chronic pts for dialysis outpt. CONTRACTOR BUYER spoke with [facility] who states that after reviewing the chart, their executive relations specialist states they cannot take pt back until Saturday when they know that pt's medications are the correct dosages for her longer term needs and that she is able to go back to dialysis. CONTRACTOR BUYER spoke with UR RN and with MD, pt will remain in hospital until Saturday once dialysis can be established and pt's psych meds are confirmed to be working well for pt. CONTRACTOR BUYER will continue to follow. Assessment: Pt who is independent at baseline. Plan: Pt will d/c back to [facility] on Saturday morning. CONTRACTOR BUYER will call [facility]ney Center on Saturday to ensure they can work with pt in the coming week on , , Sat. CONTRACTOR BUYER will continue to follow. LEON Hernandez
--- NOTE | 2016-11-17 16:18 | PCM.PNMED ---
Subjective Date of Service Nov 17, 2016 Subjective Patient was examined at bedside today. Patient denies any chest pain, shortness of breath, nausea, vomiting, diarrhea. Nursing overnight stated the patient did sleep and was no longer yelling and carrying on like she had been the previous evening. Patient seems to be responding well to her Risperdal. Exam Vital Signs Vital Sign - Last Date Time Temp Pulse Resp B/P Pulse Ox O2 Delivery O2 Flow Rate FiO2 11/17/16 13:51 61 11/17/16 13:25 36.5 20 171/90 98 Room Air Intake and Output 11/16/16 11/16/16 11/17/16 Cumulative From/Thru 15:00 23:00 07:00 11/14/16 17:55 - 11/16/16 20:21 Intake Total 200 ml 2450 ml Output Total 350 ml 3375 ml Balance -150 ml -925 ml Intake Oral 200 ml 2450 ml Output Urine Total 350 ml 2375 ml Ultrafiltrate 1000 ml # Bowel Movements 1 2 Exam Physical Exam: GEN: Patient was awake, alert, responding appropriately to questions HEENT: PERRLA, EOMI, Neck soft supple, trachea midline, nomocephalic/atraumatic CV: +S1/S2, RRR, systolic murmurs auscultated Respiratory: CTAB, no wheezes, rales, rhonchi GI: +bowel sounds x4, soft, compressible, non TTP EXT: no c/c/e Neuro: CN II-XII grossly intact Psych: mood and affect were appropriate IVs and Medications Medications Reviewed: Medications were reviewed in detail Medications Current Medications Pantoprazole 40 mg BID PO Last administered on 11/17/16 09:12; Admin Dose 40 MG ; Start 11/15/16 at 20:30 Hydroxyzine Pamoate 50 mg Q8H PO Last administered on 11/17/16 09:11; Admin Dose 50 MG; Start 11/16/16 at 09:44 Risperidone 0.5 mg HS PO Last administered on 11/16/16 19:16; Admin Dose 0.5 MG ; Start 11/16/16 at 21:00 Risperidone 0.25 mg BID PRN PO Last administered on 11/17/16 13:14; Admin Dose 0.25 MG; Start 11/16/16 at 16:05 Lab and Diagnostics Result Diagram: 11/17/1652111/17/16521 Assessment & Plan Patient is a 71-year-old female with a history of CVA, ESRD on dialysis, HTN, dementia, and bipolar d/o p/w behavioral changes Acute, active Acute encephalopathy, presented at [facility], resolved already here, likely due to UTI , pt was sedated with benzo/zyprexa, now AAOx2 -The patient seemed to have returned back to her baseline mentation however today the patient was extremely agitated and difficult to deal with today. -Continue antibiotics -Patient has been afebrile and white count normal UTI, POA, based on UCX done at [facility] -Repeat UA is negative for nitrates and shows only small leuk esterase -will continue Rocephin1 g daily Elevated lipase, POA, 900 to 700s at [facility], -Lipase was 93 less likely this is pancreatitis End-stage renal disease -Patient currently on dialysis Dr. Araya has been consulted and scheduling the patient's dialysis Chronic Anemia with a history of upper GI bleeding -Currently no signs of bleeding -Patient's H&H is 8.7/27.3 and has been stable for the last 3 days this is a chronic anemia for the patient and this seems to be at her baseline -We will continue to monitor Anxiety, depression, bipolar -Psychiatry was consulted today and appreciate their recommendations -Psychiatry may restart the patient on low-dose risperidone Hypertension -Continue home medications Disposition: At this point the patient is currently medically stable from a GI standpoint. The patient has been continuing her dialysis at her regularly scheduled intervals. Currently the patient's only concern is her obsessive- compulsive behaviors in her agitation. The patient was started on 0.5 mg of risperidone last evening and seemed to respond well the patient was also given 0.25 mg of her when necessary dose prior to going to dialysis. Once the patient is no longer agitated and seems to be doing well and not very agitated during her dialysis treatments she should be able to be [facility]. The patient's son is her power of workers compensation attorney was here today and we talked extensively about his mother's progress and the plan of treatment and he also agrees with this plan. [facility] states that she needs to be under control for the next 24-48 hours before she is able to return [facility]. Once patient is stable and cleared to go back to [facility] as well as her dialysis center and she is able to be discharged. Both [facility] and [facility] dialysis center state that the patient cannot return until her behaviors under control. VTE Mechanical Devices: Intermittant Pneumatic CD Time spent Greater than 35 minutes Carine Dixon DO Nov 17, 2016 16:18
--- NOTE | 2016-11-17 17:35 | NUR ---
Dialysis note: 3 1/2 hrs tx. 2000 ml net UF. Right catheter, dsg dry and intact. Pls see DTR for VS details. Qb 400. Heparin given. O2 @ 2L via NC on. Pt awake and alert but gets confused and asks the same questions repeatedly; calling out loud at times. Pt's son visited briefly. Stable tx. Catheter flushed, heparin dwelled and secured. Report given to Dayna SCHAFFER. Stable at time of transfer.
--- NOTE | 2016-11-17 17:36 | NUR ---
[facility] dialysis Patient transported back to primary room. Report given to Vinod Painting RN. Patient's son here to visit briefly. Patient has many concerns and repitive questions, attempted to reassure her. Calms with care.
[2016-11-17] MEDS: cefTRIAXone Inj 1,000 MG in Dextrose 5% Minibag Plus 50 ML IV SCH (17:51)
--- NOTE | 2016-11-17 18:01 | PCM.PNPSY ---
Subjective Date of Service Nov 17, 2016 Subjective Patient seen briefly this morning, reports doing well and was only concerned about cleaning hands prior to dialysis. The patient had a less eventful evening and was reportedly calm during the night. The patient denied side effects from risperidone. Sleep: Good Appetite: Good Suicidal and homicidal ideation: Denies Auditory hallucinations/Visual hallucinations: Denies Other Psychotic Symptoms: None reported Anxiety/Depression: Denies Current Medications Current Medications Dextrose/Water 250 ml @ ud STK-MED ONCE IV Last administered on 11/16/16 16:55; Admin Dose 10 MLS/HR; Start 11/16/16 at 16:55; Stop 11/16/16 at 16:57; Status DC Hydroxyzine Pamoate 50 mg Q8H PO Last administered on 11/17/16 09:11; Admin Dose 50 MG; Start 11/16/16 at 09:44 Pantoprazole 40 mg BID PO Last administered on 11/17/16 09:12; Admin Dose 40 MG ; Start 11/15/16 at 20:30 Risperidone 0.5 mg HS PO Last administered on 11/16/16 19:16; Admin Dose 0.5 MG ; Start 11/16/16 at 21:00 Risperidone 0.25 mg 0.25 mg BID PRN PO Last administered on 11/17/16 13:14; Admin Dose 0.25 MG; Start 11/16/16 at 16:05 Mental Status Exam Vital Signs Vital Signs Date Time Temp Pulse Resp B/P Pulse Ox O2 Delivery O2 Flow Rate FiO2 11/17/16 13:51 61 11/17/16 13:25 36.5 60 20 171/90 98 Room Air 11/17/16 10:46 36.4 60 18 146/68 97 11/17/16 10:40 68 11/17/16 10:34 Room Air Appearance: Neat/well groomed (appropriate to situation) Attitude: Cooperative, Guarded Behavior: No unusual behavior Affect: Restricted Mood: Euthymic Thought Process/Associations: Logical/Sequential Speech Production: Paucity Speech Rate: Lags/Latency Speech Articulation: Normal Thought Content: Suspicious Danger to Self/Suicidal Ideati: None Danger to Others: None Consciousness: Alert Orientation: Person, Place, Date, Situation Memory: Grossly Intact Estimate Intellectual Function: Average Attention/Concentration & Cogn: Grossly Intact Insight: Limited Judgement: Limited Result Diagram: 11/17/16 0522 11/17/16 0522 Mental Health Plan The patient is a 71-year-old female with a history of cerebrovascular accident, end-stage renal disease, on dialysis, hypertension, dementia, and bipolar disorder, who presented with mental status changes, possibly secondary to a urinary tract infection. She is now presenting with irritability, particularly in the evening, consistent with sundowning. We discussed low-dose risperidone and the patient was agreeable and the patient's DPOA was supportive. She appears to be benefiting from low-dose risperidone 0.5 mg at bedtime and 0.25 mg twice daily as needed. She does not appear to be suffering from a manic episode at this time, but rather behavioral changes related to her neurocognitive disorder secondary to atherosclerosis and stroke. The patient's apathy, noted by her son, may actually have been due to her parieto-occipital stroke rather than the risperidone, so she will need to be watched for potential return of the symptom. Packwood Packwood I: 1. Bipolar disorder by history, in current remission. 2. 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 Packwood II: Deferred. Packwood III: See past medical history. Packwood IV: Moderate. Packwood V: Global Assessment of Functioning 40. Medications Risperdal 0.5 mg at bedtime Risperdal 0.25 mg twice daily as needed for paranoia or agitation Treatments 1. Discussed with the POA and patient risperidone 0.5 mg at bedtime for agitation and residual symptoms of bipolar disorder with 0.25 mg twice daily as needed until the optimal dose is determined. Patient may benefit from scheduled to 0.25 mg at daytime. 2. Would avoid benzodiazepines and daytime use of larger doses of antipsychotics given her history of sedation.. 3. Patient appears to be responding to treatment at this time, psychiatry will sign off for now. Please feel free to consult Psychiatry should you have any other questions. Hai Avila MD Nov 17, 2016 18:01
[2016-11-17] MEDS: risperiDONE 1 mg Tablet PO SCH (20:05)
[2016-11-18] VITALS (9 sets, daily range): BP systolic 107–173; BP diastolic 61–86; PULSE 60–68; RESP 18–20; O2SAT 95–99
[2016-11-18] MEDS: hydrOXYzine Pamoate 25 mg Capsule PO SCH ×3 (01:00→18:28)
[2016-11-18] MEDS: risperiDONE 1 mg Tablet PO PRN (01:00)
--- NOTE | 2016-11-18 05:10 | NUR ---
Hypertension BP goes up to 173/86, Dr. Huff aware and not concerned at this time. Continue monitoring.
--- NOTE | 2016-11-18 05:13 | NUR ---
Behavior Pt alert, some confusion despite she knows place, year,month, [place] president, , very fixed and obsessive, for example, she kept asking RN to help her turn on the TV despite TV already turned on,frequently pushing call light every 20 or 30 min for no apparent needs. Pt wide awake and has not been sleeping at all. She appears confused the call light with a phone despite repeated reoriented, she hold and keep pushing the call light buttons and trying to dial for several hours, irritable, sometimes yelling out,Risperidone 0.5mg given at HS and 0.25mg prn dose givenx1, does not appear very effective. Pierce alarm on. No fall.
[2016-11-18 06:55] LABS: Mean Corpuscular Hemoglobin 29.9 pg (27.0-35.0); Mean Corpuscular Volume 92.2 fL (81-100)
[2016-11-18] MEDS: Pantoprazole 40 mg ER24 Tablet PO SCH ×2 (08:50→21:17)
[2016-11-18] MEDS: Sucralfate 1,000 mg Tablet PO SCH ×4 (08:51→21:17)
[2016-11-18] MEDS: Ascorbic Acid 500 mg Tablet PO SCH (08:51)
--- NOTE | 2016-11-18 17:46 | PCM.PNMED ---
Subjective Date of Service Nov 18, 2016 Subjective denies any new issues/complaints Exam Vital Signs Vital Sign - Last Date Time Temp Pulse Resp B/P Pulse Ox O2 Delivery O2 Flow Rate FiO2 11/18/16 17:06 36.2 61 18 136/78 98 Room Air Intake and Output 11/17/16 11/17/16 11/18/16 Cumulative From/Thru 15:00 23:00 07:00 11/14/16 17:55 - 11/18/16 05:22 Intake Total 750 ml 1075 ml 4275 ml Output Total 2650 ml 900 ml 6925 ml Balance -1900 ml 175 ml -2650 ml Intake Oral 750 ml 1000 ml 4200 ml IV Total 75 ml 75 ml Output Urine Total 650 ml 900 ml 3925 ml Ultrafiltrate 2000 ml 3000 ml # Bowel Movements 1 3 General: Alert, Oriented X3, Cooperative, No Acute Distress Eyes: PERRLA, EOMI, Scleral Anicteric Nose: Mucous Membr Moist/[place] Mouth: Mucous Membr Moist/[place] Neck: Supple Chest & Lungs: Chest Wall Normal, Clear to auscultation & percussion Cardiovascular: Regular Rate/Rhythm Abdomen: Non-tender, Non-distended, Normoactive bowel tones, Soft Extremities: No cyanosis/clubbing/edma bilat Neurological: Grossly Neurologically Intact, Normal Speech IVs and Medications Medications Reviewed: Medications were reviewed in detail Lab and Diagnostics Result Diagram: 11/18/1640 11/18/16 0640 Assessment & Plan 71-year-old female with a history of CVA, ESRD on dialysis, HTN, dementia, and bipolar d/o p/w behavioral changes # Acute encephalopathy, presented at [facility], resolved already here, likely due to UTI - mental status and behavior appears improved and fairly stable now - Patient has been afebrile and white count normal # Acute UTI, POA, based on UCX done at [facility] - Repeat UA is negative for nitrates and shows only small leuk esterase - stop Rocephin (has had more than 3 days) # Elevated lipase, POA - non-specific. - no abdominal pain - no further w/u for now # End-stage renal disease - Patient currently on dialysis - appreciate nephrology consult. will f/u w/ recs # Chronic Anemia with a history of upper GI bleeding - Currently no signs of bleeding - Patient's H&H stable # Anxiety, depression, bipolar - appreciate psychiatry consult. will f/u w/ recs - c/w Risperidone 0.5mg qhs and 0.25mg bid prn # Hypertension. stable. - Continue home medications Disposition: Likely back to [facility] in am VTE Mechanical Devices: Intermittant Pneumatic CD Toni Lay Nov 18, 2016 17:46
[2016-11-18] MEDS: cefTRIAXone Inj 1,000 MG in Dextrose 5% Minibag Plus 50 ML IV SCH (18:29)
[2016-11-18] MEDS: risperiDONE 1 mg Tablet PO SCH (21:17)
[2016-11-19 02:14] VITALS: BP 151/74; PULSE 59; RESP 20; O2SAT 94
[2016-11-19] MEDS: hydrOXYzine Pamoate 25 mg Capsule PO SCH ×2 (02:30→11:39)
[2016-11-19 04:11] VITALS: BP 144/68; PULSE 61; RESP 20; O2SAT 94
--- NOTE | 2016-11-19 06:48 | NUR ---
NOC Activity Pt denies chest pain, sob, n/v or abd discomfort. VSS and has been afebrile overnight. Pt would ask for a couple of ice epstein and juices and request to order some breakfast in the middle of the night. Re-orient the pt regarding the present situation that we could order breakfast @ 7am, pt agrees and no further complains.
[2016-11-19] MEDS: Ascorbic Acid 500 mg Tablet PO SCH (08:30)
[2016-11-19] MEDS: Pantoprazole 40 mg ER24 Tablet PO SCH (08:50)
[2016-11-19] MEDS: risperiDONE 1 mg Tablet PO PRN (08:50)
[2016-11-19] MEDS: risperiDONE 1 mg Tablet PO SCH (08:51)
[2016-11-19] MEDS: Sucralfate 1,000 mg Tablet PO SCH ×2 (08:52→11:39)
[2016-11-19 09:25] VITALS: BP 164/76; PULSE 60; RESP 18; O2SAT 97
[2016-11-19] MEDS ORDERED: RISP1TAB90 PO ×2 (10:10)
--- NOTE | 2016-11-19 11:00 | PCM.DIMED ---
Discharge Instructions Date of Service Nov 19, 2016 Dates of Hospitalization Nov 14, 2016 at 17:38 Discharge Diagnosis Discharge Diagnosis # Acute agitation and possible encephalopathy, present on admission. Resolved. - Likely due to recent UTI # Acute irritability, particularly in the evening, consistent with . Improved # Acute UTI, present on admission (based on urine studies done at [facility]) - Resolved # End-stage renal disease on hemodialysis (Saturday, and Saturday) # Chronic Anemia with a history of upper GI bleeding - Currently no signs of bleeding and blood count stable. # Anxiety, depression. stable # Hypertension. stable. # Bipolar disorder by history, in current remission. 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 Chronic. Stable. Diet Low fat, Low Sodium, Heart Healthy Activity No restrictions Patient Instructions Follow-up plan 1. Followup for dialysis tomorrow as previously scheduled. 2. Followup with primary care provider in 3-7 days Toni Lay Nov 19, 2016 11:00
--- NOTE | 2016-11-19 11:23 | NUR ---
Faxed orders to [facility] and will set up transport when ready. Updated RAILROAD WORKER
--- NOTE | 2016-11-19 11:37 | PCM.PNMED ---
Subjective Date of Service Nov 19, 2016 Subjective Stable overnight. Last HD was on Saturday. Exam Vital Signs Vital Sign - Last Date Time Temp Pulse Resp B/P Pulse Ox O2 Delivery O2 Flow Rate FiO2 11/19/16 09:25 36.3 60 18 164/76 97 Room Air Intake and Output 11/18/16 11/18/16 11/19/16 Cumulative From/Thru 15:00 23:00 07:00 11/14/16 17:55 - 11/19/16 05:10 Intake Total 0 ml 1157 ml 5432 ml Output Total 850 ml 1200 ml 8975 ml Balance -850 ml -43 ml -3543 ml Intake Oral 0 ml 1157 ml 5357 ml IV Total 75 ml Output Urine Total 850 ml 1200 ml 5975 ml Ultrafiltrate 3000 ml # Bowel Movements 0 1 4 Exam Exam GA: AAOx3, calm, not in acute distress. HEENT: mild pallor, no icteric sclerae, atraumatic, moist mucous membrane. no JVD, no lymphadenopathy. Heart: RRR, systolic murmur noted. normal S1/S2. Lungs: CTA, no wheezing no rhonchi. no accessory muscle use. Abdomen is soft without any tenderness rebound guarding masses or hepatosplenomegaly. Extremities not showing any evidence of any clubbing, cyanosis, or edema. Skin: right tunneled cath in place. no bleeding. Lab and Diagnostics Result Diagram: 11/18/16 0640 11/18/16 0640 Assessment & Plan 71-year-old female with a history of CVA, ESRD on dialysis, HTN, dementia, and bipolar d/o p/w behavioral changes # Acute encephalopathy, presented at [facility], resolved already here, likely due to UTI - mental status and behavior appears improved and fairly stable now - Patient has been afebrile and white count normal # Acute UTI, POA, based on UCX done at [facility] - Repeat UA is negative for nitrates and shows only small leuk esterase - stop Rocephin (has had more than 3 days) # Elevated lipase, POA - non-specific. - no abdominal pain - no further w/u for now # End-stage renal disease - Patient currently on dialysis - appreciate nephrology consult. will f/u w/ recs # Chronic Anemia with a history of upper GI bleeding - Currently no signs of bleeding - Patient's H&H stable # Anxiety, depression, bipolar - appreciate psychiatry consult. will f/u w/ recs - c/w Risperidone 0.5mg qhs and 0.25mg bid prn # Hypertension. stable. - Continue home medications Disposition: Likely back to [facility] in am VTE Mechanical Devices: Intermittant Pneumatic CD Danielle Rodgers MD Nov 19, 2016 11:37
[2016-11-19 11:40] VITALS: PULSE 61
--- NOTE | 2016-11-19 11:47 | NUR ---
Social Work-readiness for discharge: Data:EMR Reviewed. Pt is on day 5 of hospitalization for UTI and agitation per H&P. Pt will likley be ready to discharge later today. KRISTIN spoke with Su Lamas admissions [phone] at [facility] who states they need new PASRR completed. SW completed PASRR and faxed over to facility for review. KRISTIN spoke with Nisreen at [facility] who states she has gotten approval from Dr. Araya to have pt return. Nisreen states pt is scheduled to be seen tomorrow at 1000 and will continue on schedule. KRISTIN updated Su at [facility]. KRISTIN will continue to follow. Assessment:Pt to who resides at [facility]. Plan:Pt to discharge back to [facility] when medically stable. Pt to continue with Dialysis at [facility]. KRISTIN will continue to follow. LEON Bernardo
--- NOTE | 2016-11-19 12:03 | NUR ---
Social Work-discharge: Data:EMR Reviewed. Pt is on day 5 of hospitalization for UTI per H&P. Pt is medically stable for discharge today. KRISTIN confirmed with [facility] that they are able to accept pt back today, PASRR is fine and medications are good. KRISTIN confirmed with Nisreen at [facility] who states that Dr. Araya is willing to have pt return as pt, pt is scheduled to start again tomorrow at 1000. KRISTIN arranged Medicaid w/c van for 1400.KRISTIN called Prem Ortiz and left message informing him of discharge back to [facility] today at 1400. UR specialist created packet and faxed orders. RN,UC,pt/family, and [facility] all updated and agreeable to plan. Assessment:pt who will return back to [facility]. Plan:Pt to discharge back to [facility] today via Medicaid cabulance at 1400. KRISTIN left message with prem Ortiz informing him of discharge. Pt to return to [facility] tomorrow at 1000 for dialysis, [facility] aware. RN,UC,pt/family, and [facility] all updated and agreeable to plan. LEON Bernardo Addendum: 11/19/16 at 1230 by SATINDER [facility] cabulanc was only able to schedule transport for 1600. KRISTIN updated RN and facility and left message for prem Ortiz. LEON Bernardo
--- NOTE | 2016-11-19 16:20 | NUR ---
Discharge Patient departed unit via wheelchair accompanied by cabulance staff. Patient alert to self at time of discharge. Patient's son contacted by social work prior to discharge. Prior to discharge, patient displayed adequate elimination, respiratory function and nutritional intake. Patient reporting chronic, ongoing pain in shoulders and back, but refused pain medication. Discharge reviewed with patient prior to discharge. All questions addressed. Patient belongings, discharge instructions and prescriptions given to crew car driver. Report given to [facility].
--- NOTE | 2016-11-19 18:00 | PCM.DC.MED ---
Discharge Summary Date of Service Nov 19, 2016 Dates of Hospitalization Date of Hospital Admission Nov 14, 2016 at 17:38 Date of Discharge: Nov 19, 2016 Providers: Admitting Physician: Rubia Sales MD Primary Care Physician: Mis Attending Physician: Rubia Saels MD Diagnosis at Time of Discharge Diagnosis at Time of Discharge # Acute agitation and possible encephalopathy, present on admission. Resolved. - Likely due to recent UTI # Acute irritability, particularly in the evening, consistent with . Improved # Acute UTI, present on admission (based on urine studies done at [facility]) - Resolved # End-stage renal disease on hemodialysis (Saturday, and Saturday) # Chronic Anemia with a history of upper GI bleeding - Currently no signs of bleeding and blood count stable. # Anxiety, depression. stable # Hypertension. stable. # Bipolar disorder by history, in current remission. 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 Chronic. Stable. Consultations 1. Nephrology 2. Psych Procedures XRay, CTs & MRIs Date of Service: 11/16/16 0800 PROCEDURE: US ABDOMEN IMPRESSION: 1. Increased hepatic echogenicity noted likely related to fatty infiltration of the liver but other sources of hepatocellular disease cannot be excluded. Recommend clinical correlation. 2. Increased renal cortical echogenicity redemonstrated consistent with medical renal disease and bilateral renal cysts redemonstrated. Dictated by: Obdulio Galdamez A Interpreted: Melody Cox MD on 11/16/2016 at 9 :06 Transcribed by: EMPERATRIZ on 11/16/2016 at 9:08 Approved by: Melody Cox MD, PhD on 11/16/2016 at 16:45 Brief History As noted in H&P by Dr. Sales: Patient is a 71-year-old female with a history of CVA, ESRD on dialysis, HTN, dementia, and bipolar d/o p/w behavioral changes Patient was originally admitted last night to [facility], sent from [facility] assisted living facility, main reason was patient was agitated, as per provider at [facility] patient received Ativan, Zyprexa 5 mg twice IM for agitation, then deeply sedated afterwards. Patient received dialysis 4 times. UA was positive with positive leukocyte esterase, pyuria, pending urine culture was gram-negative jason >10^5, therefore it was thought to be UTI causing altered mental status, she received Rocephin yesterday and today. Today morning, patient woke up, more alert and oriented. Pt also had elevated lipase 900s on admission, decreased to 700s this AM, was not able to perform any meetings because patient was agitated. Patient was scheduled to have further workups for elevated lipase, but given the necessity of dialysis, patient was recommended to transfer to our facility by . no abdominal images were obtained. Most recent labs at [facility] today wbc4.6, h/h8.8/27. [id number], Na140, K3.4, cl101, bun /cr 08/14.74, [id number] negative. EKG atrial pacing. no images were done. Of note, pt was recently hospitalized here 11/05- with similar episode of acute encephalopathy, likely delirium vs uremia, during this hospital course, dialysis was initiated. Hospital course was also complicated by unclear etiology of hypothermia and hypoglycemic event, hyperkalemia with KAMILLE on CKD. Upon arrival to [facility], pt denied any abdominal pain, still mildly drowsy but AAOx3 , feels hungry, ROS: Denied fever or chills chest pain, palpitations, cough, phlegm, dysuria, frequency, urgency Hospital Course # Acute encephalopathy, presented at [facility], resolved already here, likely due to UTI - mental status and behavior appears improved and fairly stable now - Patient has been afebrile and white count normal # Acute irritability, particularly in the evening, consistent with . Improved # Acute UTI, POA, based on UCX done at [facility] - Repeat UA is negative for nitrates and shows only small leuk esterase - stop Rocephin (has had more than 3 days) # Elevated lipase, POA - non-specific. - no abdominal pain - no further w/u for now # End-stage renal disease - Patient currently on dialysis - appreciate nephrology consult. will f/u w/ recs # Chronic Anemia with a history of upper GI bleeding - Currently no signs of bleeding - Patient's H&H stable # Anxiety, depression, bipolar - appreciate psychiatry consult. will f/u w/ recs - c/w Risperidone 0.5mg qhs # Hypertension. stable. - Continue home medications # Anxiety, depression. stable # Hypertension. stable. # Bipolar disorder by history, in current remission. 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 Chronic. Stable. by day of d/c lungs CTA bilat. patient awake, alert, Ox3 Exam Vital Signs (Last) Date Time Temp Pulse Resp B/P Pulse Ox O2 Delivery O2 Flow Rate FiO2 11/19/16 11:40 61 11/19/16 09:25 36.3 18 164/76 97 Room Air Test 11/15/16 05:53 11/17/16 03:20 11/18/16 06:40 Neutrophils (%) (Auto) 95.8% (40-74) Lymphocytes (%) (Auto) 1.9% (14-46) Monocytes (%) (Auto) 1.8% (4-12) Eosinophils (%) (Auto) 0.3% (0-5) Basophils (%) (Auto) 0.1% (0-3) Phosphorus Level 3.6mg/dL (2.5-4.9) Magnesium Level 2.3mg/dL (1.6-2.6) Lipase 93U/L (13-60) Procalcitonin 0.76ng/mL (0.00-0.08) Urine Color Straw (YELLOW) Urine Appearance Clear (CLEAR,HAZY) Urine pH 8.0 (5.0-8.0) Urine Specific [place] 1.010 (1.003-1.035) Urine Protein 30mg/dL (NEG,TRACE) Urine Glucose (UA) Negativemg/dL (NEGATIVE) Urine Ketones Negativemg/dL (NEGATIVE) Urine Occult Blood Trace (NEGATIVE) Urine Nitrite Negative (NEGATIVE) Urine Bilirubin Negative (NEGATIVE) Urine Urobilinogen Normalmg/dL (NORMAL) Urine Leukocyte Esterase Small (NEGATIVE) Urine RBC 0-2/hpf (0-2) Urine WBC 6-10/hpf (0-5) Urine Epithelial Cells Occasional/hpf (NONE-MOD) Urine Crystals None seen (NONE SEEN) Urine Bacteria None/hpf (NONE-FEW) Urine Hyaline Casts None/lpf (NONE) Urine Granular Casts None seen (NONE SEEN) Urine Waxy Casts None seen (NONE SEEN) Urine Red Blood Cell Casts None seen (NONE SEEN) Urine White Blood Cell Casts None seen (NONE SEEN) Urine Mucus Present (None Seen) Urine Trichomonas None seen (NONE SEEN) Urine Yeast None (NONE SEEN) White Blood Count 4.4th/mm3 (3.8-10.1) Red Blood Count 3.34mil/mm3 (3.90-5.20) Hemoglobin 10.0g/dL (12.0-15.6) Hematocrit 30.8% (35.0-46.0) Mean Corpuscular Volume 92.2fL (81-100) Mean Corpuscular Hemoglobin 29.9pg (27.0-35.0) Mean Corpuscular Hemoglobin Concent 32.5% (32.0-37.0) Red Cell Distribution Width 16.9% (12.3-15.4) Platelet Count 175bil/L (150-400) Sodium Level 143mEq/L (134-144) Potassium Level 4.0mEq/L (3.5-5.2) Chloride Level 103mEq/L (97-108) Carbon Dioxide Level 25mmol/L (18-29) Blood Urea Nitrogen 8mg/dL (8-27) Creatinine 1.57mg/dL (0.57-1.00) Estimat Glomerular Filtration Rate 47mL/min (>59) Glucose Level 80mg/dL (60-99) Calcium Level 9.2mg/dL (8.5-10.1) Total Bilirubin 0.3mg/dL (0.0-1.2) Aspartate Amino Transf (AST/SGOT) 23U/L (0-50) Alanine Aminotransferase (ALT/SGPT) 16U/L (0-32) Alkaline Phosphatase 210U/L (25-165) Total Protein 5.6g/dL (6.4-8.4) Albumin 3.2g/dL (3.4-5.0) Discharge Medications Discharge Medications Amlodipine (Amlodipine) 10 Mg Tablet 10 MG PO DAILY (Reported) Ascorbic Acid (Vitamin C) 250 Mg Tab.chew 250 MG PO DAILY (Reported) Ferrous Sulfate (Ferrous Sulfate) 325 Mg Tablet 325 MG PO DAILY (Reported) Hydroxyzine HCl (HydrOXYzine Hcl) 50 Mg Tablet 50 MG PO q 8 hours (Reported) Pantoprazole DR (Pantoprazole DR) 40 Mg Tablet.dr 40 MG PO BID (Reported) Risperidone (Risperdal) 1 Mg Tablet 0.5 MG PO HS Prescribed by: TONI REED MD Sucralfate (Sucralfate) 1 Gm Tablet 1 GM PO q6 hours (Reported) As needed Acetaminophen (Acetaminophen) 325 Mg Capsule 650 MG PO q6 hours PRN PRN For Pain (Reported) Dextran 70/Hypromellose/Pf (Artificial Tears Drops) 1 Each Droperette 2 DROP BOTH_EYES prn PRN PRN dry eyes (Reported) Magnesium Hydroxide (Milk of Magnesia) 400 Mg/5 Ml Oral.susp 400 MG PO DAILY PRN PRN For Constipation (Reported) Ondansetron (Zofran) 4 Mg Tablet 4 MG PO q6hrs PRN PRN For Nausea (Reported) Followup Plan Disposition: SNF Follow-up plan 1. Followup for dialysis tomorrow as previously scheduled. 2. Followup with primary care provider in 3-7 days Discharge Diet: Low fat, Low Sodium, Heart Healthy Discharge Activity: No restrictions Time spent 30 min Toni Reed Nov 19, 2016 18:00
[2017-03-21] MEDS ORDERED: BISA10SU61 RC (13:49)
[2017-03-21] MEDS ORDERED: MAGN400O4 PO (13:49)
[2017-03-21] MEDS ORDERED: CINA30TA PO (13:49)
[2017-03-21] MEDS ORDERED: SEVE800T7 PO (13:49)
== END 2016-11-19 16:20 | DRG 689 ==
LOC: MPC 17:38
PROVIDERS: ADMIT Internal Medicine; ATTEND Internal Medicine
PROC: 5A1D60Z (ICD-10-PCS; principal; 2016-11-15)
DX: N39.0 Urinary tract infection, site not specified (principal); N18.6 End stage renal disease; G93.40 Encephalopathy, unspecified; N17.9 Acute kidney failure, unspecified; I12.0 Hypertensive chronic kidney disease with stage 5 chronic kidney disease or end stage renal disease; R46.81 Obsessive-compulsive behavior; D64.9 Anemia, unspecified; F41.8 Other specified anxiety disorders; Z99.2 Dependence on renal dialysis; I69.319 Unspecified symptoms and signs involving cognitive functions following cerebral infarction

== ENCOUNTER 2017-03-25 08:12 | Day surgery (SDC) | payer MEDICARE, MEDICAID ==
[~2017-03-25] VITALS: Ht 152.4 cm; Wt 58.6 kg
[~2017-03-25 08:12] MED LIST changes: +0.9% Sodium Chloride 500 ML IV ONE; +CINA30TA PO; +CeFAZolin Inj 2 GM in IV Premix 1 EACH IV ONE; -NA P133E23 RC; +RISP1TAB90 PO; +SEVE800T7 PO
[2017-03-25] MEDS ORDERED: Propofol 10,000 mCg/mL 20 mL Inj ONE (08:13)
[2017-03-25] MEDS ORDERED: fentaNYL-PF 50 mCg/mL 2 mL Inj ONE (08:13)
[2017-03-25 08:46] VITALS: BP 168/69; PULSE 60; RESP 16; O2SAT 98
[2017-03-25] MEDS ORDERED: RISP0.5T4 PO (09:12)
[2017-03-25] MEDS ORDERED: OMEP20CA11 PO (09:12)
--- NOTE | 2017-03-25 09:23 | PCM.HPANE ---
Patient Data Date of Service: Mar 25, 2017 Surgeon Admitting Provider: Attending Provider:Oswald Ho MD Primary Care Physician:Mis Other Provider:Arminda Richards Anesthesia Reason for Visit End Stage Renal Failure Ht/WT & BMI Height (Feet): 5 Height (Inches): 0 Weight (Kilograms): 58.786 Body Mass Index 25.00 Allergies Coded Allergies: Penicillins (Verified Allergy, Unknown, unknown (HAS TAKEN CEPHALOSPORINS IN THE PAST W/O PROBLEMS), 03/21/17) Past Anesthesia History Anesthesia History: Denies:: Anesthesia Reactions, Difficult Intubation, Fam Anesthesia Reaction, Fam Malignant Hypertherm, Malignant Hyperthermia Diabetes History Hx Diabetes?: No MRSA MRSA: Yes (HX OF) Medications Hypertension Medication: Yes (AMLODIPINE) Active Scripts Risperidone (Risperdal)1 Mg Tablet0.5 Mg PO HS #30 TABLET Prov:Toni Lay 11/19/16 Reported Medications Omeprazole 20 Mg Capsule.dr20 Mg PO DAILY #30 03/25/17 Risperidone 0.5 Mg Tablet0.25 Mg PO AM #60 03/25/17 Cinacalcet (Sensipar)30 Mg Bgiikx71 Mg PO DAILY Ref 0 03/21/17 Sevelamer Carbonate (Renvela)800 Mg Yespfj287 Mg PO BID 90 Days 03/21/17 Bisacodyl (Dulcolax Rectal)10 Mg Supp.rect10 Mg RC DAILY PRN For Constipation 30 Days Ref 0 03/21/17 Acetaminophen 325 Mg Qrqnlqz332 Mg PO q6 hours PRN For Pain 11/05/16 Sucralfate 1 Gm Tablet1 Gm PO BID 30 Days Ref 0 11/05/16 Dextran 70/Hypromellose/Pf (Artificial Tears Drops)1 Each Droperette2 Drop BOTH_ EYES prn PRN dry eyes #1 BOTTLE 11/05/16 Ascorbic Acid (Vitamin C)250 Mg Tab.wgim742 Mg PO DAILY #30 TABLET Ref 0 11/05/16 Ferrous Sulfate 325 Mg Lhrsmm055 Mg PO DAILY 30 Days Ref 0 11/05/16 Amlodipine 10 Mg Efptic14 Mg PO DAILY #30 09/14/16 Discontinued Reported Medications Magnesium Hydroxide (Milk of Magnesia)400 Mg/5 Ml Oral.tswz354 Mg PO DAILY PRN PRN 03/21/17 Ondansetron (Zofran)4 Mg Tablet4 Mg PO q6hrs PRN For Nausea 11/14/16 Magnesium Hydroxide (Milk of Magnesia)400 Mg/5 Ml Oral.kbee758 Mg PO DAILY PRN For Constipation 11/05/[address] 40 Mg Tablet.dr40 Mg PO BID Ref 0 11/05/16 Hydroxyzine HCl (HydrOXYzine Hcl)50 Mg Uvnmwz15 Mg PO q 8 hours Ref 0 11/05/16 History History of ENT Problems?: Yes HEENT History: Denies:: Cataracts Difficult Intubation Dysphagia Sinus Problem Denture Type: None Teeth Condition: Within Normal Limits Other HEENT Pertinent History: S/P TONSILLECTOMY Hx of Heart Problems?: Yes Cardiovascular History: Positive for:: Cardiac Surgery (Pacemaker Jul 25, 2014 ) Hypertension Irregular Heartbeat Pacemaker (S/P 07/2016 FOR SICK SINUS SYNDROME) Valvular Heart Disease (MILD AR) Denies:: Atrial Fibrillation Chest Pain Congestive Heart Failure Edema Heart Murmur (ECHO 09/2016 EF 65-70%) Thrombophlebitis Other Cardiac History: HX ANEMIA OF CHRONIC DISEASE Hx of Respiratory Problem?: No Respiratory History: Denies:: Asthma COPD Chest Surgery Dyspnea Emphysema Hemoptysis Pneumonia Tuberculosis Use of C-PAP Machine Hx Neurologic Problems?: Yes Neurological History: Positive for:: CVA (09/2015) Dizziness Denies:: Alzheimer's Disease Dementia Headaches Parkinson's Disease Seizures Hx of GI Problems?: Yes Other GI Pertinent History: S/P APPY Hx of Problems?: Yes Genitourinary History: Positive for:: HX of Hemodialysis (ESRD STAGE 4/ DIALYSIS ACCESS=CURRENT PROBLEM S/P IJ CATH) Denies:: Kidney Stones Urinary Tract Infection Other Pertinent History: INTERSTITIAL NEPHRITIS-CHRONIC Female Hx: Denies:: Currently (S/P BTL) Endometriosis Pelvic Inflammatory Problems with Breasts? Skin History: Positive for:: History Skin Disorders? Denies:: Pressure Ulcers Hx Musculoskeletal Problems?: Yes Musculoskeletal History: Denies:: Back Injury Joint Replacement Musculoskeletal Trauma Hx of Psycho/Social Problems?: Yes Psycho Social History: Positive for:: Anxiety Denies:: Bipolar Disorder Hx Depression Suicide Attempt Hx Surgeries?: Yes (PACER,PARATHYROIDECTOMY,LUMBAR SURG,BTL,TONSILS,CTR,APPY, IJ CATH) Hx Any Other Health Problems?: Yes Other History: Positive for:: Hospitalization Thyroid Disease (S/P EXC PARATHYROID) Denies:: Cancer Endocrine Disease History Blood Transfusions: Positive for:: Blood Transfusions Denies:: Blood Transfuse Reaction Hx Diabetes: No Hx Alcohol Use: Yes (history of alcohol abuse, quit 28 years ago)Hx Substance Use: No Smoking Status: Former Smoker Have You Smoked inLast 12 mo: NoApprox How Many Cigarettes/day: 32YR HX Stop/Bang S-Snoring: Do You Snore Loudly: No T-Tired: feel tired, fatigued: Yes O-Obsered: Observed not breath: No P-Blood Pressure: treated: Yes B- Body Mass Index > 35 kg/m2: No A- Age over 50: Yes N- Neck Large Circumference: No G- Gender Male: No MARLENI Total Score: 3 Risk Assessment Category Category 1A: Patient has history of documented sleep apnea, and HAS NOT received any narcotic, sedative or anesthesia administration during this stay. Category 1B: Patient has history of documented sleep apnea, and HAS received any narcotic , sedative or anesthesia administration during this stay Category 2: Patient has SUSPECTED Obstructive Sleep Apnea, and HAS received any narcotic , sedative or anesthesia administration during this stay. Category 3: Patient has SUSPECTED Obstructive Sleep Apnea and HAS NOT received narcotic, sedative or anesthesia administration during this stay. Category 4: Outpatient in Procedural Areas with known sleep apnea or who screen positive for High Risk via the STOP/BANG questionnaire. Exam Exam Vital Signs Vital Signs Date Time Temp Pulse Resp B/P Pulse Ox O2 Delivery O2 Flow Rate FiO2 03/25/17 08:46 36.2 60 16 168/69 98 Room Air General Appearance: Alert, Oriented X3, Cooperative HEENT/AIRWAY: MP 2 Lungs: Clear to Auscultation, Clear to Percussion Heart: Exam Unremarkable, Regular Rate/Rhythm Plan Impression Patient chart reviewed, patient interviewed and anesthestic plan with risks, benefits, and alternatives discussed, and informed consent obtained. ASA Physical Status: ASA2 Mod Systemic Disease Anesthetic Plan: MAC Bene/Risks/Altern/Consents: Yes HP Complete Prior to Induction: Yes Raudel Gustafson MD Mar 25, 2017 08:40
[2017-03-25] MEDS ORDERED: Heparin 5,000 Unit/mL Inj IR ONE (10:24)
[2017-03-25] MEDS ORDERED: Bupivacaine-MPF 0.5% 30 mL Inj INFILTRATE ONE (10:24)
[2017-03-25] MEDS ORDERED: Lidocaine PF 1% 30 mL Inj INJ ONE (10:24)
[2017-03-25 11:32] VITALS: BP 146/76; PULSE 61; RESP 18; O2SAT 96
[2017-03-25] MEDS ORDERED: HYDROcodone-APAP 5-325 mg Tablet PO PRN (11:35)
[2017-03-25 12:07] VITALS: BP 143/68; PULSE 64; RESP 18; O2SAT 97
--- NOTE | 2017-03-25 14:42 | PCM.ANEP1 ---
Post Anesthesia PACU Phase 1 Assessment Date of Service: Mar 25, 2017 Vital Signs Vital Signs Date Time Temp Pulse Resp B/P Pulse Ox O2 Delivery O2 Flow Rate FiO2 03/25/17 12:07 36.5 64 18 143/68 97 Room Air 03/25/17 11:32 36.8 61 18 146/76 96 Room Air 03/25/17 08:46 36.2 60 16 168/69 98 Room Air Anesthetic Administered: MAC Level of Alertness: Awake, talking NICOLAS's with Equal Strength: Yes Pain: No Nausea or Vomiting: No CV Function & Hydration Stable: Yes Airway Device: Oxygen Delivery: Room Air Lungs: Clear to Auscultation, Clear to Percussion PACU Phase 2 Assessment Complications: No Patient Instructions Provided: N/A Raudel Gustafson MD Mar 25, 2017 14:42
--- NOTE | 2017-03-25 23:20 | OP ---
[address] [address] OPERATIVE REPORT PATIENT: AMELIE CEDEÑO : 1945 MR#: [id number] ADMIT: 03/25/2017 JOB ID: [id number] DATE OF SURGERY: 03/25/2017 PREOPERATIVE DIAGNOSIS(ES): End-stage renal failure. POSTOPERATIVE DIAGNOSIS(ES): End-stage renal failure. PROCEDURE: Right proximal radial to cephalic arteriovenous fistula. SURGEON: Oswald Ho MD. OPERATOR AND TRUCK DRIVER: Lazaro Jimenes PA-C. INDICATIONS: A 71-year-old female with end-stage renal failure on dialysis. She is being dialyzed through a right internal jugular tunneled catheter and needs a fistula. Her best vein by her duplex was the right upper arm cephalic vein, but on exam, she had a nice forearm cephalic vein. I originally scheduled her for radiocephalic fistula on the right, but preoperatively her forearm cephalic vein was very small, measuring only 1 mm and so I rediscussed with the patient and recommended a brachial cephalic. But, unfortunately, in the operating room she ended up having again a nice-looking cephalic vein in the forearm, but because of my discussion and the fact that this vein seemed to go into spasm, I elected to use the cephalic vein in the antecubital fossa. FINDINGS: She ended up having a high bifurcation of the radial artery, and so I used the proximal radial artery at the level of the antecubital fossa. At the conclusion of the procedure, there was an excellent thrill in the fistula which is expanding and there is a three component Doppler signal in the fistula as well as in the radial artery proximal and distal to the anastomosis. DESCRIPTION OF PROCEDURE: At the beginning and end of the operation, the SCOAP checklist was completed. She received deep sedation and local anesthesia with 1% lidocaine, 0.5% bupivacaine. A right antecubital incision was made, the cephalic vein was identified and exposed down to its distal branch point. The distal branches were ligated with 3-0 silk. Small side branches of the vein were clipped or cauterized. The vein was divided and flushed with heparinized saline after opening the common wall between the two branches. The artery was then easily palpable. It was exposed but, as stated above, it turned out to be the proximal radial artery. I chose to use that and it was controlled proximally and distally with vessel loops. The vein was flushed with heparinized saline. The artery was opened and flushed proximally and distally with heparinized saline. The anastomosis was then completed with running 6-0 Prolene. The artery was first backflushed into the vein followed by forward flushing in the vein and then forward flow distally with results as stated above. There is no bleeding from the anastomosis. The incision was closed with interrupted subcuticular 3-0 Vicryl and running subcuticular 5-0 Vicryl. Dermabond was applied. Estimated blood loss 10 cc. No apparent complications. The final sponge, needle and instrument counts were announced as correct, and she was returned to recovery in stable condition. Critical assistance provided by PATRICIA Pike
== END 2017-03-25 23:59 | disposition home or self-care (01) ==
LOC: SAS 08:12
PROVIDERS: ATTEND Surgery
DX: I13.11 Hypertensive heart and chronic kidney disease without heart failure, with stage 5 chronic kidney disease, or end stage renal disease (principal); N18.6 End stage renal disease; F31.9 Bipolar disorder, unspecified; E21.3 Hyperparathyroidism, unspecified; F41.9 Anxiety disorder, unspecified; I49.5 Sick sinus syndrome; D63.1 Anemia in chronic kidney disease; Z95.0 Presence of cardiac pacemaker; Z99.2 Dependence on renal dialysis; Z99.3 Dependence on wheelchair; Z87.891 Personal history of nicotine dependence; Z79.82 Long term (current) use of aspirin
CPT/HCPCS: 36415; 36818; 84132; J0690; J1644; J3010; J7040

== ENCOUNTER 2017-07-07 19:59 | Inpatient (IN) | payer MEDICARE, MEDICAID ==
[~2017-07-07] VITALS: Ht 152.4 cm; Wt 66.2 kg
[~2017-07-07 19:59] MED LIST changes: -0.9% Sodium Chloride 500 ML IV ONE; -CeFAZolin Inj 2 GM in IV Premix 1 EACH IV ONE; -HYDR50TA76 PO; -MAGN400O4 PO; +OMEP20CA11 PO; -ONDA4TAB6 PO; -PANT40TA3 PO; +RISP0.5T4 PO; +Vancomycin Dose per Pharmacist XX ONE
[2017-07-07 20:02] VITALS: BP 109/60; PULSE 84; RESP 24; O2SAT 93
--- NOTE | 2017-07-07 20:31 | ED.REPORT ---
HPI-Fever Date of Service Jul 07, 2017 ED Provider: Peter Verdugo DO A 71 year old female with a history of CVA, ESRD on dialysis, hypertension, pacemaker placement, dementia, and bipolar d/o p/w behavioral changes presents to the ED with worsening weakness that became increasingly worse a few days ago. The patient is accompanied to the ED by her son who provides the history secondary to limited history given by patient due to dementia. Recent associated symptoms include subjective fever and confusion. The patient's son is currently expressing concern for UTI after urine looked particularly concentrated". She denies any decreased appetite, abdominal pain, chest pain, nausea, vomiting, or diarrhea. Last dialyzed yesterday. Nursing Notes Stated Complaint: FEVER,LETHARGIC,WEAKNESS,DIALYSIS PT Chief Complaint: General Complaint Nursing Notes Reviewed: Yes Allergies: Coded Allergies: Penicillins (Verified Allergy, Unknown, unknown (HAS TAKEN CEPHALOSPORINS IN THE PAST W/O PROBLEMS), 03/21/17) Scheduled Amlodipine (Amlodipine) 10 Mg Tablet 10 MG PO DAILY Ascorbic Acid (Vitamin C) 250 Mg Tab.chew 250 MG PO DAILY Cinacalcet (Sensipar) 30 Mg Tablet 30 MG PO DAILY Ferrous Sulfate (Ferrous Sulfate) 325 Mg Tablet 325 MG PO DAILY Omeprazole (Omeprazole) 20 Mg Capsule.dr 20 MG PO DAILY Risperidone (Risperdal) 1 Mg Tablet 0.5 MG PO HS Risperidone (Risperidone) 0.5 Mg Tablet 0.25 MG PO AM Sevelamer Carbonate (Renvela) 800 Mg Tablet 800 MG PO BID Sucralfate (Sucralfate) 1 Gm Tablet 1 GM PO BID Scheduled PRN Acetaminophen (Acetaminophen) 325 Mg Capsule 650 MG PO q6 hours PRN PRN For Pain Bisacodyl (Dulcolax Rectal) 10 Mg Supp.rect 10 MG RC DAILY PRN PRN For Constipation Dextran 70/Hypromellose/Pf (Artificial Tears Drops) 1 Each Droperette 2 DROP BOTH_EYES prn PRN PRN dry eyes General Time Seen by MD: 20:30 Chief Complaint Other (Weakness) Hx Obtained From: Patient Arrived By: Walk-in Onset Occurred: 3 days ago Symptom Duration: Since onset Location: : No pain Associated with: Reports: Confusion, Denies: Abdominal pain Pertinent Negative: Pt denies other symptoms Context: Immunization Status General: All up to date Recent Healthcare: No recent hospitalization, Recent doctor visit Past Medical History Past Medical History Notes: Nephrology: Guru Araya duodenal ulcer 09/29 on EGD, normal colonoscopy Past Medical History Anxiety Probable dementia Renal failure - 14% function as of late August, Bipolar Reports: Hypertension Reports: Depression Past Surgical History left carpal tunnel release parathyroid fistula Reports: Appendectomy, Tonsillectomy Reports: Pacemaker insertion, Tubal ligation Smoking History Former Smoker Social History Alcohol Use: Denies alcohol use Drug Use: Denies drug use Other Social History: Local resident Ambulatory Status Independent Review of Systems Constitutional: Reports: Fever (subjective), Weakness - generalized Cardiovascular: Reports: Chest pain Neurologic: Reports: Confusion Complete sys rev & neg: except as marked. Physical Exam Initial Vital Signs Vital Signs (First) Date Time Temp Pulse Resp B/P Pulse Ox O2 Delivery O2 Flow Rate FiO2 07/07/17 20:02 37.9 84 24 109/60 93 Room Air Extremities: Vascular intact, Neuro intact, No swelling, No tenderness Psychiatric: Mood/affect normal, Behavior normal, Normal thought content General/Constitutional: Awake Alertness: Positive: Sleeping but arousable, Somnolent Neck: Atraumatic, Supple, Full range of motion Respiratory / Chest: Atraumatic, Breath sounds NL, Breath sounds = bilat, No respiratory distress Cardiovascular: Heart rate NL, Regular rhythm, Heart sounds NL Skin: Atraumatic, Color NL, Warm, Dry Neurologic: Speech NL, No motor deficits, No sensory deficits, CN II - XII intact Mental Status: Positive: Confused (Mildly), Disoriented to place (Situation) Head / Eyes: Atraumatic, Normocephalic, PERRL ENT: Atraumatic, Airway patent Mouth: Positive: Mucous membranes dry Abdomen: Atraumatic, Soft, Non-tender, No guarding, No rebound Tenderness/Guarding/Rebound: Negative: Tender RUQ... Interpretation & Diagnostics Lab Results Interpretation Result Diagram: 07/07/17211507/07/172115 Test 07/07/17 21:16 07/07/17 22:53 White Blood Count 17.5th/mm3 (3.8-10.1) Red Blood Count 2.79mil/mm3 (3.90-5.20) Hemoglobin 9.6g/dL (12.0-15.6) Hematocrit 28.7% (35.0-46.0) Mean Corpuscular Volume 102.9fL (81-100) Mean Corpuscular Hemoglobin 34.4pg (27.0-35.0) Mean Corpuscular Hemoglobin Concent 33.4% (32.0-37.0) Red Cell Distribution Width 13.6% (12.3-15.4) Platelet Count 163bil/L (150-400) Neutrophils (%) (Auto) 85% (40-74) Lymphocytes (%) (Auto) 1% (14-46) Monocytes (%) (Auto) 6% (4-12) Eosinophils (%) (Auto) 0% (0-5) Basophils (%) (Auto) 0% (0-3) Band Neutrophils % 8% (1-5) Sodium Level 132mEq/L (134-144) Potassium Level 3.3mEq/L (3.5-5.2) Chloride Level 88mEq/L (97-108) Carbon Dioxide Level 26mmol/L (18-29) Blood Urea Nitrogen 68mg/dL (8-27) Creatinine 4.52mg/dL (0.57-1.00) Estimat Glomerular Filtration Rate 14mL/min (>59) Glucose Level 105mg/dL (60-99) Lactic Acid Level 1.5mmol/L (0.4-2.0) Calcium Level 10.2mg/dL (8.5-10.1) Magnesium Level 1.8mg/dL (1.6-2.6) Total Bilirubin 1.3mg/dL (0.0-1.2) Aspartate Amino Transf (AST/SGOT) 39U/L (0-50) Alanine Aminotransferase (ALT/SGPT) 30U/L (0-32) Alkaline Phosphatase 246U/L (25-165) Troponin T 0.075ug/L (0.0-0.011) Total Protein 6.1g/dL (6.4-8.4) Albumin 2.5g/dL (3.4-5.0) ECG Interpretation ECG Interpretation: Atrial paced complexes Rate 74 bpm Time: 20:28 Interpreted by: ED physician Normal ECG Interpretation: No change from prior ECGs (11/06/16) X-Ray Chest Interpretation Chest Xray Interpretation: IMPRESSION: No acute pulmonary process. Dictated by: Sneha Panchal M.D. on 07/07/2017 at 21:05 Interpretation / Wet Read by: Interpret - Radiologist CT Head Interpretation IMPRESSION: 1. No acute intracranial process. 2. Moderate atrophy and chronic microvascular ischemic changes. Dictated by: Sneha Panchal M.D. on 07/07/2017 at 21:48 Study: Head CT no contrast Interpretation / Wet Read by: Interpret - ED physician Re-Eval/Medical Decision Med Decision/Clinical Course Patient presents with UTI and associated delirium and sepsis. Because of her history of end-stage renal disease only a small 500 mL bolus of normal saline was given to treat her initial borderline blood pressure just over 100. Her blood pressure has stabilized significantly into the 130s and 140s. She is mildly somnolent but conversant. We'll plan to treat with broad-spectrum antibiotics and admit. Re-Evaluation/Progress : Time of Eval: 22:47 Re-Evaluation/Progress Note: The patient is rechecked. She denies any abdominal pain and re-examination upon recheck in negative for RUQ tenderness. All of the family's questions about the severity of the patient's condition are addressed. He understands and agrees with the plan to admit. Consultation : Referral / Consult Name: Leander Mena MD Consulted With: Hospitalist Call Returned at: 22:51 Grocery Stock Clerk: Will see patient, Agrees with eval, Agrees with plan, Accepts admit Note: Dicussed patient condition. Will accept the patient. Counseled Regarding: Diagnosis, Lab results, Need for admission Discharge & Departure Impression: Primary Impression: Acute delirium Additional Impressions: UTI (urinary tract infection) Urinary tract infection type: site unspecified Hematuria presence: without hematuria Qualified Code: N39.0 - Urinary tract infection, site not specified Sepsis Sepsis type: sepsis due to unspecified organism Qualified Code: A41.9 - Sepsis, unspecified organism End stage renal disease Disposition: ADMITTED TO HOSPITAL Discharge Condition All VS Reviewed: Yes Condition: Stable Referrals: NOPCP (PCP) Denise Attestation Portions of this note were transcribed by Stefani Barron. I, Dr. Hailey Hoover personally performed the history, physical exam and medical decision-making; I reviewed and confirmed the accuracy of the information in the transcribed note. Signed by Denise Bustos, 07/07/17. Peter Verdugo DO Jul 07, 2017 20:31 STEFANI BARRON Jul 07, 2017 22:20
[2017-07-07] MEDS ORDERED: 0.9% Sodium Chloride 250 ML IV ONE (20:50)
--- NOTE | 2017-07-07 21:08 | DRSVH ---
PROCEDURE: X-RAY CHEST ONE VIEW, PORTABLE ([id number]) INDICATIONS: fever TECHNIQUE: One view of the chest was acquired. COMPARISON: [facility], CR, XR CHEST 1VW (PORTABLE), 11/07/2016, 11:40. FINDINGS: Surgical changes and devices: Dialysis catheter pacemaker and neck clips are unchanged. Lungs and pleura: No pleural effusions or pneumothorax. Lungs are clear. Mediastinum: Mediastinal contours appear normal. Heart size is normal. Bones and chest wall: No suspicious bony lesions. Overlying soft tissues appear unremarkable. IMPRESSION: No acute pulmonary process. Dictated by: Sneha Panchal M.D. on 07/07/2017 at 21:05 Approved by: Sneha Panchal M.D. on 07/07/2017 at 21:06
[2017-07-07 21:11] VITALS: BP 101/49; PULSE 67; RESP 31; O2SAT 94
[2017-07-07 21:20] LABS: Mean Corpuscular Hemoglobin 34.4 pg (27.0-35.0); Mean Corpuscular Volume 102.9 fL (81-100); Platelet Count 163 bil/L (150-400)
[2017-07-07 21:50] LABS: BASOPHILS % (AUTO) 0 % (0-3); EOSINOPHILS % (AUTO) 0 % (0-5); MONOCYTES % (AUTO) 6 % (4-12); NEUTROPHILS % (AUTO) 85 % (40-74)
--- NOTE | 2017-07-07 21:51 | DRSVH ---
PROCEDURE: CT BRAIN WITHOUT CONTRAST ([id number]) INDICATIONS: ALOC TECHNIQUE: Noncontrast 4.5 mm thick angled axial sections acquired from the foramen magnum to the vertex, with c oronal reformats. COMPARISON: [facility], CT, CT BRAIN WO CON, 11/05/2016, 17:53. FINDINGS: Image quality: Excellent. CSF spaces: Basal cisterns are patent. No extra-axial fluid collections. The ventricles are symmet ariana in size and shape. Brain: No intracranial bleeds or masses. There is cerebral volume loss for age, with resultant vent ricular and sulcal prominence. There are periventricular and deep white matter chronic small vessel ischemic changes. There is intracranial internal carotid artery atherosclerosis. Skull and face: Calvarium and visualized facial bones appear intact, without suspicious lesions. Sinuses: Visualized sinuses and mastoids are clear. IMPRESSION: 1. No acute intracranial process. 2. Moderate atrophy and chronic microvascular ischemic changes. Dictated by: Sneha Panchal M.D. on 07/07/2017 at 21:48 Approved by: Sneha Panchal M.D. on 07/07/2017 at 21:49
[2017-07-07 21:55] LABS: Magnesium 1.8 mg/dL (1.6-2.6)
[2017-07-07 22:02] LABS: TROPONIN T 0.075 ug/L (0.0-0.011)
[2017-07-07] MEDS ORDERED: Meropenem Inj 500 MG in 0.9% Sodium Chloride 50 ML IV ONE (22:20)
[2017-07-07] MEDS ORDERED: Vancomycin Inj 1,500 MG in 0.9% Sodium Chloride 500 ML IV ONE (22:30)
[2017-07-07 23:04] LABS: APPEARANCE,URINE SLIGHTLY CLOUDY (CLEAR,HAZY); COLOR,URINE YELLOW (YELLOW); OCCULT BLOOD,URINE SMALL (NEGATIVE); UROBILINOGEN,URINE NORMAL (NORMAL)
[2017-07-07] MEDS ORDERED: Ondansetron 2 mg/mL 2 mL Inj IVPUSH PRN ×2 (23:35→23:40)
[2017-07-07] MEDS ORDERED: Alum-Mag Hydrox-Simeth 30 mL Suspension PO PRN (23:40)
[2017-07-07] MEDS ORDERED: Polyethylene Glycol (PEG) 17 Gm Powder PO PRN (23:40)
[2017-07-07] MEDS ORDERED: risperiDONE 1 mg Tablet PO SCH (23:51)
[2017-07-07 23:53] VITALS: BP 113/67; PULSE 73; RESP 24; O2SAT 96
[2017-07-08] VITALS (12 sets, daily range): BP systolic 84–131; BP diastolic 51–69; PULSE 60–74; RESP 18–30; O2SAT 89–94
--- NOTE | 2017-07-08 00:32 | PCM.HPMED ---
Subjective Date of Service Jul 08, 2017 Primary Provider: Admitting Physician: Leander Mena MD Primary Care Physician: Nopbeny Attending Physician: Leander Mena MD Chief Complaint: Weakness History of Present Illness: Patient is a 71 y/o female with past medical history of CVA, ESRD on T ,Th,Sat Dialysis, HTN, pacemaker, dementia, and bipolar disorder who presents after increased weakness and confusion. Patient's son provided history. Reports that patient was staying with him this past week and a half due to weakness and generalized fatigue. She has been feeling more tired over the past week, and he has been taking care of her as well as taking her to scheduled dialysis. Today, son states patient was more weak that this past week and she was diaphoretic. He checked her temperature and reported it to be 102F. He states that her urine has been darker than usual. Patient denies any cough, CP, SOB, ABD pain, N/V/D, constipation, or dysuria. Patient has been on dialysis for 9 months and uses a port on the right chest for this. Patient has been in the process of transitioning to a RUE fistula for the past two to three months. Son reports that a few weeks ago, her fistula was infiltrated which caused pain and bruising to the area, but they were able to continue to use this fistula. Patient's last dialysis was 07/06. In the ED, patient was given one dose of Meropenem, Vancomycin, 250mL NS bolus, and 650mg Tylenol. Temp 38.2, RR 24, and WBC 17.5. Review of Systems: ROS reviewed and otherwise negative unless listed above. Allergies Coded Allergies: Penicillins (Verified Allergy, Unknown, unknown (HAS TAKEN CEPHALOSPORINS IN THE PAST W/O PROBLEMS), 03/21/17) Home Medications Amlodipine (Amlodipine) 10 Mg Tablet 10 MG PO DAILY Ascorbic Acid (Vitamin C) 250 Mg Tab.chew 250 MG PO DAILY Cinacalcet (Sensipar) 30 Mg Tablet 30 MG PO DAILY Ferrous Sulfate (Ferrous Sulfate) 325 Mg Tablet 325 MG PO DAILY Omeprazole (Omeprazole) 20 Mg Capsule.dr 20 MG PO DAILY Risperidone (Risperdal) 1 Mg Tablet 0.5 MG PO HS Risperidone (Risperidone) 0.5 Mg Tablet 0.25 MG PO AM Sevelamer Carbonate (Renvela) 800 Mg Tablet 800 MG PO BID Sucralfate (Sucralfate) 1 Gm Tablet 1 GM PO BID PMH Anxiety Dementia ESRD on Dialysis T,Th,Sat Bipolar Hypertension Depression CVA 2016 GI Bleeds Pacemaker Surgical History Pacemaker placement Family History Mother - CAD Social History Hx Alcohol Use: Yes (history of alcohol abuse, quit 28 years ago) Hx Substance Use: No Hx Tobacco Use: Yes Smoking Status: Former Smoker (Quit 2 years ago and smoked 1ppd for 25 years) Years of Smokin Living Arrangement: Alone Exam Vital Signs Vital Sign - Last Date Time Temp Pulse Resp B/P Pulse Ox O2 Delivery O2 Flow Rate FiO2 07/07/17 23:53 38.2 73 24 113/67 96 Room Air Intake and Output 07/07/17 07/07/17 07/08/17 Cumulative From/Thru 15:00 23:00 07:00 07/07/17 20:02 - 07/07/17 22:53 Intake Total 250 ml 250 ml Balance 250 ml 250 ml Intake IV Total 250 ml 250 ml Exam Constitutional: Awake but Lethargic. Oriented to Person and Year, but not to place or situation. No acute distress. Head: normocephalic and atraumatic Eyes: Pupils pinpoint, but reactive to light. No scleral icterus. Mouth: Poor dentition, thick mucopurulent sputum noted throughout the oral cavity; no posterior oropharynx erythema. Heart: Regular rate and rhythm. No murmurs, rubs, or gallops. No peripheral edema. RUE fistula noted with palpable thrill. No hard/ropy vasculature palpated. Lungs: Clear to auscultation, no wheeze, rales, or rhonchi ABD: Soft, nontender, bowel sounds auscultated throughout. Musculoskeletal: Appropriate muscle tone, but patient unable to move extremities secondary to weakness; patient unable to hold UE elevated when passively raised. Skin: Diffuse Ecchymoses on RUE AC surrounding dialysis fistula, otherwise no rash. Warm, dry Neuro: CN II-XII intact. No focal deficits. Psych: confused, but appropriate mood and affect. Lab and Diagnostics Labs Item Value Date Time Red Blood Count 2.79 mil/mm3 L 07/07/172115 Mean Corpuscular Volume 102.9 fL H 07/07/172115 Mean Corpuscular Hemoglobin 34.4 pg 07/07/172115 Mean Corpuscular Hemoglobin Concent 33.4 % 07/07/172115 Red Cell Distribution Width 13.6 % 07/07/172115 Platelet Count 163 sheryl/L 07/07/172115 Lymphocytes (%) (Auto) 1 % L 07/07/172115 Monocytes (%) (Auto) 6 % 07/07/172115 Eosinophils (%) (Auto) 0 % 07/07/172115 Basophils (%) (Auto) 0 % 07/07/172115 Band Neutrophils % 8 % H 07/07/172115 Neutrophils (%) (Auto) 85 % H 07/07/172115 Estimat Glomerular Filtration Rate 14 mL/min 07/07/172115 Lactic Acid Level 1.5 mmol/L 07/07/172115 Calcium Level 10.2 mg/dL H 07/07/172115 Magnesium Level 1.8 mg/dL 07/07/172115 Total Bilirubin 1.3 mg/dL H 07/07/172115 Aspartate Amino Transf (AST/SGOT) 39 U/L 07/07/172115 Alanine Aminotransferase (ALT/SGPT) 30 U/L 07/07/172115 Alkaline Phosphatase 246 U/L H 07/07/172115 Troponin T 0.075 ug/L *H 07/07/172115 Total Protein 6.1 g/dL L 07/07/172115 Albumin 2.5 g/dL L 07/07/172115 Result Diagram: 07/07/17211507/07/172115 Microbiology Blood Cultures Pending Urine Culture Pending X-Rays, CTs and MRIs PROCEDURE: X-RAY CHEST ONE VIEW, PORTABLE IMPRESSION: No acute pulmonary process. Dictated by: Sneha Panchal M.D. on 07/07/2017 at 21:05 PROCEDURE: CT BRAIN WITHOUT CONTRAST IMPRESSION: 1. No acute intracranial process. 2. Moderate atrophy and chronic microvascular ischemic changes. Dictated by: Sneha Panchal M.D. on 07/07/2017 at 21:48 12-lead ECG Atrial Paced Complexes HR 74 Assessment & Plan Patient is a 71 y/o female with past medical history of CVA, ESRD on ,,Sat Dialysis, HTN, pacemaker, dementia, and bipolar disorder who presents after increased weakness and confusion. - Acute SIRS with Possible Sepsis, POA, Active, Stable - Patient admitted with Temp 38.2, Resp Rate 24, and WBC 17.5 with likely sources of infection being UTI vs acute bacteremia with 8% bands - Patient received one dose of Meropenem in ED - Start Vancomycin - renal dosed - Start Ciprofloxacin -renal dosed- patient allergic to penicillins and Cipro will provide Gram Negative coverage, Pseudo coverage, and has good urinary tract coverage. - Blood cultures pending; including draws from dialysis port - Urine culture pending - AM CBC, CMP - MRSA nasal swab pending - Resp PCR pending - Influenza rapid pending - Urine Legionella pending - Urine Strep Ag pending - Procalcitonin - Acute Macrocytic Anemia, POA, Active, Stable - Patient presented with Hgb 9.6 with an MCV 102.9 and no previous h/o macrocytic anemia - Obtain B12/Folate serum levels -Acute Hypercalcemia, Active, Stable - Corrected calcium 11.4 on admission, likely secondary to ESRD - Monitor - ESRD requiring Dialysis, Stable - Patient attends dialysis T,,Sat and received her last scheduled dialysis on 07/06. - Renal dose antibiotics as above - Monitor I&Os - Continue with Dialysis schedule on Monday 07/09 - Consult Nephrology in AM - AM CMP - Continue home dose Cinacalcet - Continue home dose Sevelamer - Chronic Hypertension, - Continue home dose Amlodipine - Chronic Bipolar Disorder - Continue home dose Risperidone PATIENT IS FULL CODE Due to complexity of case and level of care, patient is admitted under inpatient status with an expected length of stay greater than 2 midnights. Pain Evaluation: Adequate Pain Control GI Prophylaxis: Proton Pump Inhibitor VTE Prophylaxis Indicated: Meets Criteria for Anticoag Therapy VTE Prophylaxis: Sub-Q Heparin (Unfractionated), SCDs VTE Mechanical Devices: Intermittant Pneumatic CD Resuscitation Status: CPR: Attempt Resuscitation Attending Statement The patient was seen and examined together with Dr. Montilla on 07/07 and I agree with the history, exam and plan as outlined in the note above. Giancarlo Montilla DO Jul 08, 2017 00:32 Leander Mena MD Jul 08, 2017 06:25
--- NOTE | 2017-07-08 01:08 | NUR ---
ADMIT; 71 yr old female admitted to room 1003 from . with son who states his mother has been increasingly lethargic feverish so he has been living with her for the past few days. Last dialysis was 07/06. Catheter right chest, fistula right arm. Pt groans and winces to pain but does not open her eyes. Ruby alarm placed on bed due to the fact she has a h/o dementia.
--- NOTE | 2017-07-08 02:04 | PCM.CONPHA ---
Subjective Date of Service: Jul 08, 2017 Requesting Provider: Giancarlo Montilla Reason for Pharmacy Consult: Vancomycin Dosing Objective Vital Signs Date Time Temp Pulse Resp B/P Pulse Ox O2 Delivery O2 Flow Rate FiO2 07/08/17 01:53 62 07/08/17 00:15 36.9 64 18 84/51 92 Room Air 07/07/17 23:53 38.2 73 24 113/67 96 Room Air 07/07/17 23:09 38.2 07/07/17 22:32 37.3 07/07/17 21:11 67 31 101/49 94 Room Air 07/07/17 20:02 37.9 84 24 109/60 93 Room Air Intake and Output 07/06/17 07/07/17 07/08/17 00:00 00:00 00:00 Intake Total 250 ml Balance 250 ml Weight (Kilograms): 66.200 Height (Feet): 5 Height (Inches): 0.00 Test 07/07/17 21:16 07/07/17 21:28 07/07/17 22:53 White Blood Count 17.5th/mm3 (3.8-10.1) Red Blood Count 2.79mil/mm3 (3.90-5.20) Hemoglobin 9.6g/dL (12.0-15.6) Hematocrit 28.7% (35.0-46.0) Mean Corpuscular Volume 102.9fL (81-100) Mean Corpuscular Hemoglobin 34.4pg (27.0-35.0) Mean Corpuscular Hemoglobin Concent 33.4% (32.0-37.0) Red Cell Distribution Width 13.6% (12.3-15.4) Platelet Count 163bil/L (150-400) Neutrophils (%) (Auto) 85% (40-74) Lymphocytes (%) (Auto) 1% (14-46) Monocytes (%) (Auto) 6% (4-12) Eosinophils (%) (Auto) 0% (0-5) Basophils (%) (Auto) 0% (0-3) Band Neutrophils % 8% (1-5) Sodium Level 132mEq/L (134-144) Potassium Level 3.3mEq/L (3.5-5.2) Chloride Level 88mEq/L (97-108) Carbon Dioxide Level 26mmol/L (18-29) Blood Urea Nitrogen 68mg/dL (8-27) Creatinine 4.52mg/dL (0.57-1.00) Estimat Glomerular Filtration Rate 14mL/min (>59) Glucose Level 105mg/dL (60-99) Lactic Acid Level 1.5mmol/L (0.4-2.0) Calcium Level 10.2mg/dL (8.5-10.1) Magnesium Level 1.8mg/dL (1.6-2.6) Total Bilirubin 1.3mg/dL (0.0-1.2) Aspartate Amino Transf (AST/SGOT) 39U/L (0-50) Alanine Aminotransferase (ALT/SGPT) 30U/L (0-32) Alkaline Phosphatase 246U/L (25-165) Troponin T 0.075ug/L (0.0-0.011) Total Protein 6.1g/dL (6.4-8.4) Albumin 2.5g/dL (3.4-5.0) Procalcitonin 12.26ng/mL (0.00-0.08) Urine Color Yellow (YELLOW) Urine Appearance Slightly cloudy Urine pH 6.0 (5.0-8.0) Urine Specific [place] 1.010 (1.003-1.035) Urine Protein 100mg/dL (NEG,TRACE) Urine Glucose (UA) Negativemg/dL (NEGATIVE) Urine Ketones Negativemg/dL (NEGATIVE) Urine Occult Blood Small (NEGATIVE) Urine Nitrite Negative (NEGATIVE) Urine Bilirubin Negative (NEGATIVE) Urine Urobilinogen Normalmg/dL (NORMAL) Urine Leukocyte Esterase Trace (NEGATIVE) Urine RBC 3-10/hpf (0-2) Urine WBC 11-50/hpf (0-5) Urine Epithelial Cells Moderate/hpf (NONE-MOD) Urine Crystals None seen (NONE SEEN) Urine Bacteria Many/hpf (NONE-FEW) Urine Hyaline Casts None/lpf (NONE) Urine Granular Casts None seen (NONE SEEN) Urine Waxy Casts None seen (NONE SEEN) Urine Red Blood Cell Casts None seen (NONE SEEN) Urine White Blood Cell Casts None seen (NONE SEEN) Urine Mucus None seen (None Seen) Urine Trichomonas None seen (NONE SEEN) Urine Yeast None (NONE SEEN) Urinalysis Comment None Urine Culture Reflexed Indicated Assessment/Plan Assessment/Plan A: * Vancomycin dosing by pharmacy for 71 y/o woman * The patient has ESRD and receives dialysis Saturday, , Saturday * She was given a 1500 mg IV vancomycin dose in the ED @0015 on 07/08 * Estimated vancomycin volume of distribution for this patient is 57 liters * Peak vancomycin concentration from the loading dose is about 26 mcg/mL P: * Draw a pre-dialysis vancomycin level on 07/09 in the morning * Pharmacy to give the patient another dose of vancomycin if the level is < 20 mcg/mL Thank you. Pharmacy will continue to follow this patient. Dipika Leone Jul 08, 2017 02:04
[2017-07-08] MEDS: Heparin 5,000 Unit/mL Inj SUBQ SCH ×3 (02:11→18:07)
--- NOTE | 2017-07-08 03:29 | NUR ---
PSYCH; turned q 2 hrs. Pt mumbles and grimaces with turns.
--- NOTE | 2017-07-08 05:14 | NUR ---
PSYCH; confused, alert, talking with nursing staff during procedures.
[2017-07-08 06:22] LABS: BASOPHILS % (AUTO) 0.1 % (0-3); EOSINOPHILS % (AUTO) 0.1 % (0-5); MONOCYTES % (AUTO) 10.2 % (4-12); Mean Corpuscular Hemoglobin 34.1 pg (27.0-35.0); Mean Corpuscular Volume 102.8 fL (81-100); NEUTROPHILS % (AUTO) 85.5 % (40-74); Platelet Count 150 bil/L (150-400)
[2017-07-08] MEDS: Vancomycin Dose per Pharmacist XX SCH (08:30)
[2017-07-08] MEDS ORDERED: Vancomycin Dose per Pharmacist XX SCH ×2 (08:30→14:20)
[2017-07-08] MEDS: Sucralfate 1,000 mg Tablet PO SCH ×2 (08:30→20:30)
[2017-07-08] MEDS: Ciprofloxacin Inj 400 MG in IV Premix 1 EACH IV SCH (10:55)
[2017-07-08] MEDS ORDERED: Dextrose 5% 0.9% NaCl 1,000 ML IV SCH (11:40)
--- NOTE | 2017-07-08 14:17 | PCM.PNMED ---
Subjective Date of Service Jul 08, 2017 Subjective Patient is in the bed, mildly confused, underlying dementia present. Exam Vital Signs Vital Sign - Last Date Time Temp Pulse Resp B/P Pulse Ox O2 Delivery O2 Flow Rate FiO2 07/08/17 12:53 36.8 71 20 121/65 93 Room Air Intake and Output 07/07/17 07/07/17 07/08/17 Cumulative From/Thru 15:00 23:00 07:00 07/07/17 20:02 - 07/08/17 05:03 Intake Total 250 ml 500 ml 750 ml Balance 250 ml 500 ml 750 ml Intake Oral 0 ml 0 ml IV Total 250 ml 500 ml 750 ml # Voids 0 0 # Bowel Movements 0 0 Exam GENERAL: Alert, not in distress, mildly confused HEAD: atraumatic, normocephalic, no bruises. EYES: JASMIN, EOMI, anicteric, able to fully open and close eyelids SKIN: Skin color normal, turgor normal. No visible rashes or lesions. EAR, NOSE, MOUTH, THROAT: Lips, oral mucosa, tongue gums, oropharynx are moist , pink, no lesions. Ears normal appearance, no lesions. NECK: no jugulovenous distention; supple ROM normal. RESPIRATORY: Lungs clear to auscultation. Good diaphragmatic excursion. CARDIAC: normal S1 and S2; no rubs, murmurs, or gallops; regular rate and rhythm ABDOMEN: Abdomen soft, non-tender. BS normal. No masses or organomegaly. MUSCULOSKELETAL: ROM full, muscles are not tender EXTREMITIES: no pitting edema in LE, no new deformities or skin discoloration. NEURO: Alert, oriented X 1, Sensation grossly intact., Cranial nerves II-XII intact, Grossly normal motor function. PULSES: 2+ radial, 2+ carotid IVs and Medications Medications Reviewed: Medications were reviewed in detail Lab and Diagnostics Result Diagram: 07/08/17 0440 07/08/17 0446 Microbiology Blood Cultures Pending Urine Culture Pending X-Rays, CTs and MRIs PROCEDURE: X-RAY CHEST ONE VIEW, PORTABLE IMPRESSION: No acute pulmonary process. Dictated by: Sneha Panchal M.D. on 07/07/2017 at 21:05 PROCEDURE: CT BRAIN WITHOUT CONTRAST IMPRESSION: 1. No acute intracranial process. 2. Moderate atrophy and chronic microvascular ischemic changes. Dictated by: Sneha Panchal M.D. on 07/07/2017 at 21:48 12-lead ECG Atrial Paced Complexes HR 74 Assessment & Plan Patient is a 71 y/o female with past medical history of CVA, ESRD on ,,Sat Dialysis, HTN, pacemaker, dementia, and bipolar disorder who presents after increased weakness and confusion. Sepsis, POA. Metabolic versus toxic encephalopathy. Bacteremia with Staphylococcus aureus - Stable - Follow up cultures - Continue with IV Vancomycin, Meropenem - Nephrology recommended to remove dialysis catheter Acute Macrocytic Anemia, POA - Stable - Patient presented with Hgb 9.6 with an MCV 102.9 and no previous h/o macrocytic anemia - Follow up B12/Folate serum levels Acute Hypercalcemia, Active, Stable - Corrected calcium 11.4 on admission, likely secondary to ESRD - Monitor ESRD requiring Dialysis ,,Sat - Stable - Nephrology consulted Plan - Renal dose antibiotics as above - Monitor I&Os - Continue with Dialysis schedule on Monday 07/09 Hypertension - Stable -We will hold home meds Chronic Bipolar Disorder - Hold home meds for now DVT PROPHYLAXIS: Heparin Code status:full code Disposition: discharge after patient improves. Plan of care discussed with treatment team; Labs, radiology tests reviewed. VTE Prophylaxis: SCDs Resuscitation Status: CPR: Attempt Resuscitation Leif Louie MD Jul 08, 2017 14:17 Plan of care discussed with ED physician; Labs, radiology tests, Tele and ECG reviewed. Plan of care, medication side effects, home medication, diagnostic procedures and available alternatives were discussed and reviewed with patient/family . All questions answered. Patient/family verbalized understanding, approved and agreed to plan of care. GI Prophylaxis: Proton Pump Inhibitor VTE Prophylaxis: Sub-Q Heparin (Unfractionated), SCDs VTE Mechanical Devices: Intermittant Pneumatic CD Resuscitation Status: CPR: Attempt Resuscitation Leif Louie MD Jul 08, 2017 14:17
--- NOTE | 2017-07-08 14:52 | CONS ---
[address] [address] CONSULTATION REPORT PATIENT: AMELIE CEDEÑO : 1945 MR#: [id number] ADMIT: 07/07/2017 JOB ID: [id number] DATE OF SERVICE: 07/08/2017 REQUESTING PHYSICIAN: Leander Mena MD. REASON FOR CONSULTATION: Management of end-stage renal disease. CHIEF COMPLAINT: Confusion and malaise. PRESENT ILLNESS: This is a 71-year-old, lady who is well known to renal service. Came to the hospital due to confusion and weakness. He has significant past medical history of bipolar disorder, end-stage renal disease, on hemodialysis every Saturday, , Saturday, hypertension, CVA, GI bleed, status post pacemaker placement, who came to the hospital due to weakness and confusion. The patient now is very lethargic. She is not able to provide me any history. The history was obtained from the medical record. Apparently, the patient has been weak over the past week. Son reported that she also had a temperature of 102. He reported that her urine looked very concentrated. He was concerned of UTI. Therefore, he brought her to the hospital for further investigation. Her last dialysis was on July 06. She has no chest pain. No nausea, vomiting, or diarrhea, abdominal pain or cough. The patient had the septic workup done overnight. Blood culture positive for Staph aureus. Respiratory viral panel was negative. Her UA showed some pyuria. She has received vancomycin, meropenem, and ciprofloxacin. PAST MEDICAL HISTORY: 1. 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 2. Bipolar disorder. 3. Anxiety. 4. Dementia. 5. GI bleed, status post endoscopy and exploratory laparotomy. 6. Depression. 7. Hypertension. SURGICAL HISTORY: 1. Status post right tunneled catheter placement in October 2016. 2. Status post pacemaker placement. 3. Parathyroidectomy. 4. Appendectomy. 5. Tonsillectomy. 6. Colectomy. 7. Tubal ligation. 8. Left carpal tunnel release. 9. Status post right AV fistula creation in March 2017. FAMILY HISTORY: No kidney disease in the family. SOCIAL HISTORY: She is a former smoker. She lives with her son. ALLERGIES: PENICILLIN. REVIEW OF SYSTEMS: Unable to obtain due to decreased mentation. HOME MEDICATIONS: Tylenol, amlodipine, vitamin C, Dulcolax, Sensipar, ferrous sulfate, omeprazole, risperidone, Renvela, and sucralfate. PHYSICAL EXAMINATION: Vitals: Temperature 37.2, T-max was 38.2, respiratory rate 18, pulse 72, blood pressure 118/65, O2 sat 94% on room air. General appearance: Lethargic, responsive to painful stimuli. Not following commands. HEENT: Atraumatic. Dry mucous membranes. Poor oral hygiene. Mild pallor. No icteric sclerae. No JVD. No lymphadenopathy. No thyroid enlargement. Heart: Regular rhythm. Normal S1, S2. No murmurs, rubs, or gallops. Chest: Right tunneled catheter in place. No discharge. No redness along the tunnelled catheter, pacemaker noted on the left upper chest. Pocket is dry, clean, and intact. No fluid collection. Abdomen: Soft, nontender, nondistended. No hepatosplenomegaly. Extremities: No edema, cyanosis or clubbing of fingers. No ulcers. Good pedal pulses bilaterally. LABORATORY: WBC 16.3, hemoglobin 8.4, platelets 150. Sodium 136, potassium 3.5, chloride 93, bicarb 24, BUN 80, creatinine 4.98. UA: Specific gravity 1.010, 11-50 WBC, 3-10 RBC. Chest x-ray showed no acute cardiopulmonary changes. CT of the brain showed no acute intracranial process, moderate atrophy and chronic microvascular ischemic changes identified. ASSESSMENT: 1. Sepsis. Source of infection could be related to tunnelled catheter infection, urinary tract infection. 2. Staph aureus bacteremia. 3. Pyuria, suspected urinary tract infection, pending culture. 4. Altered mental status secondary to metabolic encephalopathy in the setting of sepsis. 5. End-stage renal disease, secondary to chronic interstitial nephritis from lithium use. 6. Renal osteodystrophy. 7. Bipolar disorder. PLAN: 1. Continue current antibiotics until finalized culture reported 2. Will contact Interventional Radiology to remove tunneled catheter. 3. The patient appears to be dehydrated. Will start her on the fluid maintenance with 5% normal saline at 80 cc/hour. 4. Hold phosphate binder. Hold antihypertensive medication. Hold aspirin for now for the tunneled catheter removal. 5. Dialysis will be performed via AV fistula tomorrow. Thank you for allowing me to participate in the care of your patient. We will monitor along. JORDANAD
--- NOTE | 2017-07-08 16:03 | DRSVH ---
PROCEDURE: 1. Right internal jugular vein tunneled catheter removal. INDICATIONS: Infection COMPARISON: None. TECHNIQUE: Telephone consent from the patient's son was obtained prior to the procedure. The tunneled catheter was prepped and draped, and lidocaine was infused for anesthesia. Traction was applied to t he catheter, which was then removed. FLUOROSCOPY TIME: 0 minutes IMPRESSION: 1. Right internal jugular vein tunneled catheter removal. Dictated by: Carolin Barber M.D. on 07/08/2017 at 15:56 Approved by: Carolin Barber M.D. on 07/08/2017 at 16:01
--- NOTE | 2017-07-08 16:56 | NUR ---
Sedation/Tunnel cath removal Jody has been too sedated throughout shift for safe PO intake. Arouses to voice and acknowledges she is in the hospital and states she wants to leave, unable to hold attention. Both nephrology and hospitalist aware; adjustments made to home medications. Tunnel cath removed at bedside, consent received by austin Ortiz over the phone with MD and two RN's. Dressing is CDI and patient shows no signs of discomfort. Catheter tip sent for cutlutre.
[2017-07-08] MEDS ORDERED: Meropenem Inj 500 MG in 0.9% Sodium Chloride 50 ML IV ONE ×2 (17:10→21:00)
[2017-07-08] MEDS ORDERED: 0.9% Sodium Chloride 250 ML ONE (18:04)
[2017-07-09] VITALS (8 sets, daily range): BP systolic 106–132; BP diastolic 62–73; PULSE 65–70; RESP 19–40; O2SAT 93–97
[2017-07-09] MEDS: Heparin 5,000 Unit/mL Inj SUBQ SCH ×3 (00:50→17:05)
[2017-07-09 02:09] LABS: Vitamin B12 926 pg/mL (211-946)
--- NOTE | 2017-07-09 06:22 | NUR ---
Neuro/Fever Patient was very lethargic first half of the shift, she could arouse to voice but could not follow commands or answer questions. SPo2 was noted to be 84-86% on RA, oral cavity dry with thick mucus secretions . Pt was placed on 2L O2 and suctioned, sats up to 94-97%. required oral suction every 2-3hours and frequent oral care. She had a fever 102F, and diaphoretic, bed bath provided, cool washcloth on fore head. MD notified; patient given Acetaminophen suppository x1 with fever coming down all shift. Later in the shift patient able to answer some questions though voice mumbled. She was also able to cough up some of the secretions for suctioning. She was repositioned Q2hrs, requires 2 people for repositioning. HD fistula positive for thrill and bruit. Right chest covered with gauze, no drainage noted.
[2017-07-09 08:07] LABS: Mean Corpuscular Hemoglobin 33.7 pg (27.0-35.0); Mean Corpuscular Volume 101.2 fL (81-100)
--- NOTE | 2017-07-09 08:15 | NUR ---
Respiratory/Activity Pt drowsy but arousable to touch. Upon assessment pt tachypnic with respirations at 38. All other VSS. Pt asked for oxymask to be removed. Saturating 94% on RA. Lung sounds clear but pt unable to clear secretions. Oral suction used. Instructed pt to cough. Pt able to cough a RN request 2/3 times. Pt HOB elevated for comfort. Pt unable to state where she is or name and date of . Respiratory called to do an assessment. Respiratory suctioned pt. notified of increased secretions and respirations.
[2017-07-09] MEDS: Vancomycin Dose per Pharmacist XX SCH (08:30)
[2017-07-09] MEDS: Sucralfate 1,000 mg Tablet PO SCH (08:30)
--- NOTE | 2017-07-09 08:30 | NUR ---
Off Unit Pt off unit to MO. Report given to RN. Addendum: 07/09/17 at 1545 by FREDERICK COLLIER RN Pt arrived back to [facility] at 1400. Pt Alert to self. Call light within reach. Re-oriented to room. Poesy alarm on. Q2 turns continues with hourly rounding.
--- NOTE | 2017-07-09 09:39 | PCM.PNNEPH ---
Subjective Date of Service Jul 09, 2017 Subjective S/p tunneled cath removal. B/cx and U/cx grew Stap Aureus. Tmax 38.9. BP improved. Pt is seen during HD. AVF was cannulated without difficulty. Exam Vital Signs Vital Sign - Last Date Time Temp Pulse Resp B/P Pulse Ox O2 Delivery O2 Flow Rate FiO2 07/09/17 08:11 36.9 68 32 130/73 93 Room Air 07/09/17 04:30 2.00 Intake and Output 07/08/17 07/08/17 07/09/17 Cumulative From/Thru 15:00 23:00 07:00 07/07/17 20:02 - 07/09/17 05:31 Intake Total 450 ml 387 ml 1587 ml Output Total 0 ml 0 ml Balance 450 ml 387 ml 1587 ml Intake Oral 0 ml 0 ml 0 ml IV Total 450 ml 387 ml 1587 ml Output Urine Total 0 ml 0 ml # Voids 0 0 # Bowel Movements 0 0 0 Exam General appearance: Lethargic, responsive to painful stimuli. Not following commands. HEENT: Atraumatic. Dry mucous membranes. Mild pallor. No icteric sclerae. No JVD. No lymphadenopathy. No thyroid enlargement. Heart: Regular rhythm. Normal S1, S2. No murmurs, rubs, or gallops. Chest: CTA, B/L. s/p right tunneled cath removed, pacemaker in place- no swelling, no redness, no fluid collection. Abdomen: Soft, nontender, nondistended. No hepatosplenomegaly. Extremities: No edema, cyanosis or clubbing of fingers. No ulcers. Good pedal pulses bilaterally. Right arm AVF with good thrill and bruits. Lab and Diagnostics Result Diagram: 07/09/172 07/09/17 044 Microbiology Blood Cultures Pending Urine Culture Pending X-Rays, CTs and MRIs PROCEDURE: X-RAY CHEST ONE VIEW, PORTABLE IMPRESSION: No acute pulmonary process. Dictated by: Sneha Panchal M.D. on 07/07/2017 at 21:05 PROCEDURE: CT BRAIN WITHOUT CONTRAST IMPRESSION: 1. No acute intracranial process. 2. Moderate atrophy and chronic microvascular ischemic changes. Dictated by: Sneha Panchal M.D. on 07/07/2017 at 21:48 12-lead ECG Atrial Paced Complexes HR 74 Plan Impression ASSESSMENT: 1. Sepsis. Source of infection could be related to tunnelled catheter infection and urinary tract infection. 2. Staph aureus bacteremia - catheter related vs UTI. 3. Staph aureus UTI. 4. Altered mental status secondary to metabolic encephalopathy in the setting of sepsis. 5. End-stage renal disease, secondary to chronic interstitial nephritis from lithium use. - 3.5 hr, 3K, 35HCO3, DFR 500, BFR 250, AVF, revaclear, UF 500 mL. 6. Renal osteodystrophy. 7. Bipolar disorder. PLAN: Rec to d/c cipro. Continue vancomycin. Pending finalized cultures. Next HD on . Hold norvas. Resume ASA. Danielle Rodgers MD Jul 09, 2017 09:39
--- NOTE | 2017-07-09 10:50 | NUR ---
dialysis note pt presented to room resting with eyes closed, easily aroused by calling name, eyes open to command, A&Ox1 dressing to upper right chest CDI BP and HR stable, O2 sat 93%, with O2@2l/NC increased to 98%, no c/o pain, noted increased and shallow respirations >40, reported to [facility] outpatient charge and to primary RN, access washed with soap and water, cleaned with chloraprep, cannulated with 17g needles x1 attempt per site, pt tolerated well, unable to reach the ordered BFR of 350 due to new access with 17g needles treatment started access pressure WNL, will continue at BFR 250 pt seems more alert, open eyes spontaneously and request water, pt will cough up mucus but does require some mouth suctioning resting comfortably, tolerating treatment well, will continue to monitor Addendum: 07/09/17 at 1422 by GEE COURTNEY RN treatment ended blood returned, RN held sites x10 minutes, bleeding stopped, gauze and tape applied, bruit/thrill present total treatment time 3.5 hours total net removed 500ml pt tolerated treatment well, Report called to Sigrid SCHAFFER See DTR for complete treatment record
--- NOTE | 2017-07-09 11:35 | PCM.PHAPRO ---
Progress Vancomycin Management: -Vancomycin trough returned this morning as 18.6 -pt received Vancomycin 1.5gm iv x 1 on 07/08 at 0015 -pt is ESRD and receiving dialysis on days TuThSa -pt has staph bacteremia/sepsis with source of tunnel cath/uti -plan: will send Vancomycin 500mg iv x 1 today to be administered at the end of dialysis session Zulema Lara [facility] Jul 09, 2017 11:35
[2017-07-09] MEDS ORDERED: Vancomycin Inj 500 MG in 0.9% Sodium Chloride 100 ML IV ONE (13:00)
[2017-07-09] MEDS: Ciprofloxacin Inj 400 MG in IV Premix 1 EACH IV SCH (14:19)
--- NOTE | 2017-07-09 14:49 | PCM.PNMED ---
Subjective Date of Service Jul 09, 2017 Subjective Patient is in bed, more awake today, and also where she is. Infectious disease service consulted. Exam Vital Signs Vital Sign - Last Date Time Temp Pulse Resp B/P Pulse Ox O2 Delivery O2 Flow Rate FiO2 07/09/17 13:52 36.7 70 30 106/67 96 Nasal Cannula 3.00 Intake and Output 07/08/17 07/08/17 07/09/17 Cumulative From/Thru 15:00 23:00 07:00 07/07/17 20:02 - 07/09/17 05:31 Intake Total 450 ml 387 ml 1587 ml Output Total 0 ml 0 ml Balance 450 ml 387 ml 1587 ml Intake Oral 0 ml 0 ml 0 ml IV Total 450 ml 387 ml 1587 ml Output Urine Total 0 ml 0 ml # Voids 0 0 # Bowel Movements 0 0 0 Exam GENERAL: Alert, not in distress HEAD: atraumatic, normocephalic EYES: EOMI, anicteric, able to fully open and close eyelids SKIN: Skin color normal, turgor normal. No visible rashes or lesions. EAR, NOSE, MOUTH, THROAT: Lips, oral mucosa, tongue are moist, pink, no lesions. NECK: no jugulovenous distention; supple ROM normal. RESPIRATORY: Lungs clear to auscultation. Good diaphragmatic excursion. CARDIAC: normal S1 and S2; no rubs, murmurs, or gallops; regular rhythm ABDOMEN: Abdomen soft, non-tender. BS normal. MUSCULOSKELETAL: ROM full, muscles are not tender EXTREMITIES: no pitting edema in LE, no new deformities or skin discoloration. NEURO: Alert, oriented X 2, Cranial nerves II-XII intact, Grossly normal motor function. PULSES: 2+ radial, 2+ carotid REVIEW OF SYSTEMS: GENERAL: no malaise, no fevers., SEE HPI HEENT: Negative for frequent or significant headaches All other reviewed and negative other than HPI. IVs and Medications Medications Reviewed: Medications were reviewed in detail Lab and Diagnostics Result Diagram: 07/09/1744107/09/17441 Microbiology Blood Cultures Pending Urine Culture Pending X-Rays, CTs and MRIs PROCEDURE: X-RAY CHEST ONE VIEW, PORTABLE IMPRESSION: No acute pulmonary process. Dictated by: Sneha Panchal M.D. on 07/07/2017 at 21:05 PROCEDURE: CT BRAIN WITHOUT CONTRAST IMPRESSION: 1. No acute intracranial process. 2. Moderate atrophy and chronic microvascular ischemic changes. Dictated by: Sneha Panchal M.D. on 07/07/2017 at 21:48 12-lead ECG Atrial Paced Complexes HR 74 Assessment & Plan Patient is a 71 y/o female with past medical history of CVA, ESRD on ,,Sat Dialysis, HTN, pacemaker, dementia, and bipolar disorder who presents after increased weakness and confusion. Sepsis, POA. Metabolic versus toxic encephalopathy. Bacteremia with Staphylococcus aureus , probably infected hemodialysis catheter - Stable, not under control - Follow up cultures - Continue with IV Vancomycin - ID consult Acute Macrocytic Anemia, POA - Stable - Patient presented with Hgb 9.6 with an MCV 102.9 and no previous h/o macrocytic anemia Acute Hypercalcemia - Improved - Monitor ESRD requiring Dialysis ,,Sat - Stable - Nephrology consulted Plan - Renal dose antibiotics as above - Monitor I&Os - Continue with Dialysis schedule on Monday 07/09 Hypertension - Stable -We will hold home meds Chronic Bipolar Disorder - Hold home meds for now DVT PROPHYLAXIS: Heparin Code status:full code Disposition: discharge after patient improves. Plan of care discussed with treatment team, patient; Labs, radiology tests reviewed. VTE Prophylaxis: SCDs VTE Mechanical Devices: Intermittant Pneumatic CD Resuscitation Status: CPR: Attempt Resuscitation Leif Louie MD Jul 09, 2017 14:49
--- NOTE | 2017-07-09 17:34 | NUR ---
Social Work- Initial Assessment Attempt/Multidisciplinary Rounds Data: EMR reviewed. Pt is a 71 year old female admitted for UTI, sepsis, ESRD per H&P. Pt's insurance is [facility] and [facility] Supp. Pt's PCP is not listed at this time. Pt is a dialysis patient. Pt's DPOA is son Angel Harrell, . Pt's readmit risk score is 6/8 high risk. Pt discussed in multidisciplinary rounds, pt is likely to require IV abx at discharge. SW attempted to meet with pt at bedside but she was not able to be woken up. T/C placed to pt's DPOA Angel, left message requesting return call. No call returned at the time of this note. SW will place call to Angel tomorrow as well and coordinate appropriate discharge plan. SW will continue to follow. Assessment: Pt who is likely to require fci IV abx. Plan: Assessment unable to be completed at this time. SW will place call to Angel tomorrow as well and coordinate appropriate discharge plan. SW will continue to follow. LEON Metzger
--- NOTE | 2017-07-09 17:39 | NUR ---
KYLIE Pt unable to be woken up, also has dementia at baseline. Placed call to pt's MARU Ortiz regarding KYLIE, left message requesting return call. Madhuri Mcclain MSW
--- NOTE | 2017-07-09 18:40 | CONS ---
[address] [address] CONSULTATION REPORT PATIENT: AMELIE CEDEÑO : 1945 MR#: [id number] ADMIT: 07/07/2017 JOB ID: [id number] DATE OF SERVICE: 07/09/[address] Yadav for this timely consult. REASON FOR CONSULTATION: High-grade staphylococcal bacteremia secondary to infected percutaneous dialysis line. HISTORY OF PRESENT ILLNESS: The patient is a 71-year-old woman with multiple medical problems. She has bipolar disorder and apparently has suffered the development of end-stage renal disease secondary to lithium toxicity. She also is known to have hypertension which may have contributed. In addition to her bipolar disorder, the patient is felt to have some dementia as well as the ongoing end-stage renal disease requiring thrice weekly dialysis. The patient was admitted to this facility yesterday because of progressive weakness and confusion. This history was provided largely by the son as the patient had very little to say and she was very encephalopathic and confused. This afternoon, the patient is a little more awake than she apparently was yesterday in the ER, but she still not able to provide much in the way of specific history and she in fact denies fevers, chills, respiratory or GI symptoms. She does pass some urine and states there has been no dysuria with that as well. It has been reported that her right chest dialysis line may have been infected and in fact it was just pulled a couple hours ago because of possible infection, but the patient herself had no complaint with respect to the dialysis catheter. Additionally, she has had a maturing fistula in her arm now for several months and today was the first day she was dialyzed by the right upper extremity fistula successfully, and her percutaneous catheter was therefore pulled. The patient's son states that while before he brought her to the ER, he had checked her temperature and it was as high as 102, he also noted that she had been very weak and sometimes sweating, but the patient herself basically denies all of this or cannot give us enough history to elaborate. Note the patient has been on dialysis for a total of nine months, uses the right chest line for that. Apparently, there have been some problems with the dialysis catheter as well as some issues with the fistula itself in terms of getting mature enough to use. When the patient was first seen in the ED, she got vanc and meropenem as well as Cipro which was started shortly thereafter because of concerns about possible sepsis and/or UTI. ID consult is now requested regarding management. PAST MEDICAL HISTORY: 1. End-stage renal disease secondary to lithium toxicity. 2. Bipolar disorder. 3. Dementia. 4. History of GI bleeds. 5. History of CVA. 6. History of hypertension. 7. Pacer, and it is unclear to me exactly how long that pacemaker has been in place in her left chest. SOCIAL HISTORY: The patient lives with her son apparently in the local area. She tells us she quit drinking in the 80s and quit smoking in the past, though we could not understand exactly when she said she quit smoking. Otherwise, the patient is relatively encephalopathic and not able to provide much history. FAMILY HISTORY: Said to be negative for tuberculosis, in first-degree relatives at least. REVIEW OF SYSTEMS: Was done. We are a bit constrained by the patient's ongoing confusion and dementia, but she was able to answer questions. Unfortunately, she answered all the questions negatively and she denied headache, sore throat, visual changes, cough, shortness of breath, chest pain, nausea, vomiting, diarrhea, dysuria, swelling of the legs or any other problems. Remainder of the review of systems and, in fact, all the review of systems was negative. PHYSICAL EXAMINATION: Reveals a woman lying very quietly in her hospital bed. She keeps repeating, "40D." We tried in great detail to figure out what 40D meant, and she eventually told it was a TV channel, but we are not aware of alphabetical subscripts to TV channels and we tried channel 40 and she said it was the wrong one. She does, however, tell us that she is in [facility], which was close, and states that the year is 1916, also close. She identifies Ruth as the present of the [place] without prompting. Some of questions seemed appropriate and she even laughed at one joke, but at other times, she just reverts to saying 40D. Examination of the patient's head reveals no sinus tenderness, no conjunctival abnormalities. No temporal wasting is seen. Oral cavity is difficult to examine as she does not cooperate and open her mouth very far, but I see no thrush, hairy leukoplakia or pharyngitis. Her neck is held in rather stiff position and it is hard to assess whether it is supple or not. No cervical adenopathy is noted. Lungs are relatively clear. Cardiac tones: Regular rate and rhythm. I do not hear any murmurs. Abdomen: Soft, relatively nontender. No suprapubic fullness. No [place] catheter is present. Her extremities are free of cellulitis, edema, or synovitis. She has excellent pulses in her feet which was surprising and she is able to move her extremities. Beyond that, we could not do any formal exam in this somewhat encephalopathic, supine, bedridden woman. Her right chest is notable for a dressing which has been placed over the site of the right percutaneous dialysis catheter. It was pulled a few hours ago. In her right upper arm, she has a fistula which has a palpable thrill and which did work today in terms of dialysis. Note that her whole right upper extremity though is somewhat edematous and I suspect this is on the basis of either the hemodialysis catheter in the right chest or the fistula or both. LABORATORIES: Include white count 13.3, platelet count 129, creatinine 6.04. LFTs normal except alk phos 235. Procalcitonin 12.74 which is hard to interpret and now that we have positive blood cultures, I would not repeat it. Urinalysis 11-50 white cells. I am also uncertain what that means. When dialysis patients produce small amounts of urine you can see constant pyuria, though it is worth noting in October, she did not have pyuria. Hep C was negative as recently as two years ago and was not repeated at this time. An HIV was negative last year. Cultures from this admission include multiple blood cultures positive for Staph aureus. This does not have the gene and is therefore not likely to be MRSA. This was isolated from three of three bottles which have turned positive so far. Note that one year ago, when she was here for an unrelated problem, she had a MRSA swab of the nares that was positive, but on this occasion, we have a MRSA screen already of the nares which is negative. Followup blood cultures were just drawn this morning as those positives I mentioned are from the 24th. The urine culture has been done and is growing Staph aureus, not surprisingly, and the cath tip of the dialysis catheter was pulled and is pending. Imaging includes a brain CT which shows atrophy and microvascular changes. A chest x-ray is clear. IMPRESSION: This is an unfortunate woman with an impressive collection of medical problems including bipolar disorder and what is reported to be early dementia. She presents this time with confusion, weakness, and fevers as reported by her son, though we have not recorded any temperatures greater than 38.2 during her admission here. At this point, we already have three positive blood cultures for Staphylococcus aureus which appears to be methicillin-sensitive Staphylococcus aureus. My concerns in this patient are multiple. Most likely, this MSSA bacteremia arose from an infected dialysis catheter which has now been removed. It is possible that this MSSA bacteremia arose from the urine, but Staph aureus UTIs tend to be downstream rather than upstream infections; that is, they arise from the bloodstream and then seed the urine rather than vice versa, as most other urinary tract infections proceed. Also, it is unlikely the Staph aureus urinary tract infection, even a pyelonephritis would produce such a high-grade bacteremia and I am very concerned that this infection which probably arose from the infected dialysis line may have seeded either a heart valve or more likely her pacer. The proper management of this will consist of 4-6 weeks of IV antibiotics. Whether her pacer or valve is infected will determine whether it is six weeks of therapy or not. It is also notable that if we believe her pacer is involved, and there is at least a 50% chance that it is, she may require removal of the pacer in two weeks in an intensive care unit setting with a transvenous pacer while she is being monitored before a new pacer can be safely inserted. RECOMMENDATIONS: 1. Will continue with vancomycin as our sole antibiotic until we have susceptibilities tomorrow and I have discussed the situation with the pharmacist in detail. 2. Cardiac echo will be ordered. This will be transthoracic, but if it is in any way ambiguous, we are going to require a transesophageal echo. 3. Serial blood cultures are being done. We have repeat blood cultures pending from today and I have ordered more for tomorrow. 4. Depending on her clinical course, we may need to further evaluate the pacer or even consider removal of the pacer, but for now I think our best bet is to clear blood cultures with antibiotics and observe her clinical progress.
[2017-07-10] MEDS: Heparin 5,000 Unit/mL Inj SUBQ SCH ×3 (01:55→17:57)
[2017-07-10 05:00] VITALS: BP 129/74; PULSE 62; RESP 30; O2SAT 95
--- NOTE | 2017-07-10 05:05 | NUR ---
Mentation Patient was more awake tonight and was able to communicate needs and answer questions when asked. She was able to ask for TV channel to be changed and say what channel she wanted and could remember her date of and that she is at the hospital. 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 Pt drunk water and juice without any trouble swallowing and was able to cough up some sputum and request to be suctioned. She is still unable to use the call light and only communicates needs when staff goes to the room and asks. Her arms and legs remain very weak, she was unable to raise arms to wipe nose or hold napkin. Patient was repositioned Q2 hrs and skin care provided as needed.
[2017-07-10] MEDS: Sucralfate 1,000 mg Tablet PO SCH ×3 (08:30→20:30)
[2017-07-10 09:05] VITALS: BP 101/63; PULSE 69; RESP 22; O2SAT 95
[2017-07-10 09:45] VITALS: PULSE 71
[2017-07-10] MEDS ORDERED: CeFAZolin Inj 2 GM in Dextrose 5% 50 ML IV ONE (10:10)
--- NOTE | 2017-07-10 10:58 | PROG NOTE ---
[address] [address] PROGRESS NOTE PATIENT: AMELIE CEDEÑO : 1945 MR#: [id number] ADMIT: 07/07/2017 JOB ID: [id number] DATE: 07/10/2017 INFECTIOUS DISEASE FOLLOW UP NOTE: REASON FOR FOLLOWUP: High-grade MSSA bacteremia secondary to an infected hemodialysis catheter in a patient with a pacer in place. INTERVAL HISTORY: Overnight, the patient has been more conversant. At this point, the patient is currently having trouble taking oral meds but is hoping to get more in the way of juice and liquids. She has no fevers or chills overnight. No significant shortness of breath. No significant abdominal pain. She does note both of her upper extremities, and the right more so than the left arm swelling and in fact, so swollen as to become painful. PHYSICAL EXAMINATION: Reveals a woman who is afebrile, 37.2. Her last elevated temperature was the 25th at 2200 hours so she has been afebrile now about 36 hours after some initially high spiking fevers. Her pulse is 71, respiratory rate 22, blood pressure 101/63. She is saturating 95%. Physical examination reveals a woman who is more alert and oriented than yesterday. Yesterday she had been repeating 40 D to us incessantly. We do not know what it means. Today, she explained that that is her bra size. Why she told us that 100 times yesterday still remains unclear, but she is alert and oriented today and able to give more history. She also notes that she feels warm all the time which I failed to mention above. Examination of the eyes reveals possible conjunctival hemorrhage on the right side that I did not notice yesterday. On her hard palate, there is a single erythematous lesion which could be trauma or conceivably embolization. No gingivitis or pharyngitis is seen. Her lungs are relatively clear. Cardiac examination: Regular rate and rhythm without notable murmur. Her pacer remains nontender. Her abdomen is soft and nontender as well. Her hands, and in fact her arms, are swollen bilaterally especially from the elbow distally. This is more pronounced on the right and she has trouble even making a fist on the right side because of the swelling. Note that she has a fistula in her right arm which was successfully used for dialysis the first time yesterday and she had the hemodialysis catheter removed from her right upper chest. The site of where the dialysis catheter was present is essentially benign today. The lower extremities are notable for a bruise or ecchymosis on the right heel. There is no corresponding lesion on the left. Neither the hands nor the feet have any classic manifestation of endocarditis. LABORATORIES: Include white count yesterday 13,000, not repeated today. Creatinine yesterday was 6, not repeated today. Procalcitonin was very elevated on the . It has not been repeated since. The patient's blood cultures from admission are now definitively identified as MSSA. This was found in 3/3 bottles from admission. Follow up blood cultures from the and are all negative but they are quite preliminary. The dialysis cath tip had greater than 15 colonies of Staph aureus which indicates definite evidence of central catheter infection according to the article to prior research. MRSA screen was negative. An echocardiogram has been done but not yet formally interpreted. This is a transthoracic echo. IMPRESSION: This is an unfortunate woman with multiple medical problems, who is somewhat more awake and oriented today. She has also had resolution of her fevers and appears overall somewhat improved even as the swelling in her arms has worsened. It is now clear that the MSSA bacteremia arose from the infected dialysis catheter which has now been pulled. The big concern is whether or not the high-grade MSSA bacteremia may have seeded a valve and produced endocarditis or more likely perhaps seeded her pacer. We know from the literature that 40% or 50% of the time when a patient has Staph aureus bacteremia arising from a source other than the pacer that the pacer itself eventually does become seeded and infected requiring removal. RECOMMENDATIONS: 1. Will switch the patient from vanc to cefazolin as we know this is MSSA. We used the 2, 2, 3 schedule with 2 g on Tuesdays and and 3 g on Saturday. This will be continued for 4-6 weeks. 2. We await the results of the transthoracic echo. Unless this is absolutely definitive, we will be forced to go on to a transesophageal echo. 3. We await serial blood cultures.
[2017-07-10] MEDS ORDERED: CeFAZolin Inj 2 GM in IV Premix 1 EACH IV ONE (11:09)
--- NOTE | 2017-07-10 11:52 | NUR ---
NUTRITION ASSESSMENT ASSESS: 71 YO female admitted for UTI, sepsis and infected HD catheter. Catheter has been pulled. Nephrology is following for HD. She was on a renal diet with poor PO of bites-25%. ST eval has been ordered today. Pt has been experiencing AMS, but today her mentation seems to be improving. Of note, pt's wt has increased 12kg since October 2016. PMHx: ESRD secondary to chronic interstitial nephritis no on HD, anemia secondary to GI bleed and CKD stage 5 s/p EGD, bipolar disorder, depression, dementia. LABS: Reviewed. (07/09) cl 95, Bun 105, District Superintendent 6.04, glu 115, phos 5.0, alk phos 235, alb 2.3 MEDS: Reviewed. GI: 0 BM CURRENT WT: 66.2kg, BMI 28.5kg/m2, Wt October 2016: 54.2kg, Wt Oct 2015: 73 kg. DIET: Renal, PO bites-25% EST. NEEDS (ESRD on HD) Kcals: 3093-9424 kcals (30-40 kcals/kg BW) Protein: 80-120 g protein (1.2-1.8 g/kg BW) NUTRITION DIAGNOSIS: 1.) Inadequate oral intake related to decreased cognition as evidenced by current NPO status and poor po intake now x 3 days.-PERSISTS 2.) Increased nutrient needs related to increased demand for nutrients as evidence by pt on HD NUTRITION INTERVENTION: 1.) Advance diet as able per ST recommendations. 2.) Continue to send Nepro on L tray. Hopefully PO intake will improve as mentation clears. MONITOR / EVAL: Diet advancement / tolerance, wt, ST, labs, nutritional status, POC. Follow per high nutritional risk guidelines.
[2017-07-10 12:02] VITALS: BP 116/77; PULSE 61; RESP 20; O2SAT 93
[2017-07-10] MEDS ORDERED: Darbepoetin Alfa 60 mCg/0.3 mL Inj SUBQ ONE (12:05)
--- NOTE | 2017-07-10 12:05 | PCM.PNNEPH ---
Subjective Date of Service Jul 10, 2017 Subjective No fever overnight. TTE ordered. Doing better overall. HD yesterday. AVF cannulated without difficulty. BFR 250 ml/min. Bruises and swelling noted on right arm. Exam Vital Signs Vital Sign - Last Date Time Temp Pulse Resp B/P Pulse Ox O2 Delivery O2 Flow Rate FiO2 07/10/17 09:45 71 07/10/17 09:05 37.2 22 101/63 95 Room Air 07/09/17 19:50 3.00 Intake and Output 07/09/17 07/09/17 07/10/17 Cumulative From/Thru 15:00 23:00 07:00 07/07/17 20:02 - 07/10/17 06:09 Intake Total 437 ml 350 ml 2374 ml Output Total 500 ml 0 ml 500 ml Balance -500 ml 437 ml 350 ml 1874 ml Intake Oral 193 ml 350 ml 543 ml IV Total 244 ml 1831 ml Output Urine Total 0 ml 0 ml Ultrafiltrate 500 ml 500 ml # Voids 2 2 # Bowel Movements 0 0 0 Exam General appearance: more awake today, responsive to verbal stimuli. HEENT: Atraumatic. Mild pallor. No icteric sclerae. No JVD. No lymphadenopathy. No thyroid enlargement. Heart: Regular rhythm. Normal S1, S2. No murmurs, rubs, or gallops. Chest: CTA, B/L. s/p right tunneled cath removed, pacemaker in place- no swelling, no redness, no fluid collection. Abdomen: Soft, nontender, nondistended. No hepatosplenomegaly. Extremities: Good pedal pulses bilaterally. Right arm AVF with good thrill and bruits. (+) bruises and mild swelling on RUE. Lab and Diagnostics Result Diagram: 07/09/1744107/09/17441 Microbiology Blood Cultures Pending Urine Culture Pending X-Rays, CTs and MRIs PROCEDURE: X-RAY CHEST ONE VIEW, PORTABLE IMPRESSION: No acute pulmonary process. Dictated by: Sneha Panchal M.D. on 07/07/2017 at 21:05 PROCEDURE: CT BRAIN WITHOUT CONTRAST IMPRESSION: 1. No acute intracranial process. 2. Moderate atrophy and chronic microvascular ischemic changes. Dictated by: Sneha Panchal M.D. on 07/07/2017 at 21:48 12-lead ECG Atrial Paced Complexes HR 74 Plan Impression ASSESSMENT: 1. MSSA bacteremia secondary to HD cath, s/p removal. 2. Altered mental status secondary to metabolic encephalopathy in the setting of sepsis. 3. End-stage renal disease, secondary to chronic interstitial nephritis from lithium use. 4. Renal osteodystrophy. 5. Bipolar disorder. 6. s/p pace maker placement. PLAN: Follow ID rec. Echo ordered to rule out IE. Next HD in am. Danielle Rodgers MD Jul 10, 2017 12:05
--- NOTE | 2017-07-10 12:30 | NUR ---
Inpatient Wound Nurse Patient seen for heel wound. Dark purple area observed on RLE medial heel, approximately 4 cm L x 4 cm W. Area is firm and warm with 0.5 cm erythemic halo. This deep tissue injury was not reported on admission, assumed to be hospital-acquired. Patient's RLE was placed in green Ehob pressure relieving boot. Wound can be visualized frequently through cut-out in bottom of boot. Heel should be floated or in boot at all times. No specific wound care is indicated unless wound deteriorates (opens or begins draining). CWON RN will check wound again at end of the week.
--- NOTE | 2017-07-10 12:36 | NUR ---
Morning Medications Pt unable to swallow pills this morning. Tried to give pills in applesauce. Pt was not able to swallow pills. Pt made NPO. Speech eval ordered. MD notified. Will continue to monitor.
--- NOTE | 2017-07-10 12:46 | NUR ---
Edema/Skin Pts arms have pitting edema. Arms place on pillows for comfort. Wound eval ordered for unblanchable redness/purple on right heel. Will continue to float heels and Q2 turns. MD notified. Care continues.
[2017-07-10 13:30] LABS: Mean Corpuscular Hemoglobin 33.3 pg (27.0-35.0); Mean Corpuscular Volume 101.9 fL (81-100)
--- NOTE | 2017-07-10 13:34 | NUR ---
Evaluation completed. Please go to "Notes" then click on "Assessments and Notes" (bottom left corner of screen). Then select appropriate discipline tab on top of screen.
--- NOTE | 2017-07-10 15:24 | PCM.PNMED ---
Subjective Date of Service Jul 10, 2017 Subjective Patient examined of breath, looks ill, weak Exam Vital Signs Vital Sign - Last Date Time Temp Pulse Resp B/P Pulse Ox O2 Delivery O2 Flow Rate FiO2 07/10/17 12:02 36.7 61 20 116/77 93 Room Air 07/09/17 19:50 3.00 Intake and Output 07/09/17 07/09/17 07/10/17 Cumulative From/Thru 15:00 23:00 07:00 07/07/17 20:02 - 07/10/17 06:09 Intake Total 437 ml 350 ml 2374 ml Output Total 500 ml 0 ml 500 ml Balance -500 ml 437 ml 350 ml 1874 ml Intake Oral 193 ml 350 ml 543 ml IV Total 244 ml 1831 ml Output Urine Total 0 ml 0 ml Ultrafiltrate 500 ml 500 ml # Voids 2 2 # Bowel Movements 0 0 0 Exam GENERAL: Alert, not in distress, weak, looks ill HEAD: atraumatic, normocephalic EYES: EOMI, anicteric, able to fully open and close eyelids SKIN: Skin color normal, turgor normal. No visible rashes or lesions. EAR, NOSE, MOUTH, THROAT: Lips, oral mucosa, tongue are moist, pink, no lesions. NECK: no jugulovenous distention; supple ROM normal. RESPIRATORY: Lungs clear to auscultation. Good diaphragmatic excursion. CARDIAC: normal S1 and S2; no rubs, murmurs, or gallops; regular rhythm ABDOMEN: Abdomen soft, non-tender. BS normal. MUSCULOSKELETAL: ROM full, muscles are not tender EXTREMITIES: pitting edema in upper extr b/l, no new deformities NEURO: Alert, oriented X 2, Cranial nerves II-XII intact, Grossly normal motor function. PULSES: 2+ radial, 2+ carotid REVIEW OF SYSTEMS: GENERAL: no malaise, no fevers., SEE HPI HEENT: Negative for frequent or significant headaches All other reviewed and negative other than HPI. IVs and Medications Medications Reviewed: Medications were reviewed in detail Lab and Diagnostics Result Diagram: 07/10/1770107/10/17 07 Microbiology Blood Cultures Pending Urine Culture Pending X-Rays, CTs and MRIs PROCEDURE: X-RAY CHEST ONE VIEW, PORTABLE IMPRESSION: No acute pulmonary process. Dictated by: Sneha Panchal M.D. on 07/07/2017 at 21:05 PROCEDURE: CT BRAIN WITHOUT CONTRAST IMPRESSION: 1. No acute intracranial process. 2. Moderate atrophy and chronic microvascular ischemic changes. Dictated by: Sneha Panchal M.D. on 07/07/2017 at 21:48 12-lead ECG Atrial Paced Complexes HR 74 Assessment & Plan Patient is a 71 y/o female with past medical history of CVA, ESRD on T ,Th,Sat Dialysis, HTN, pacemaker, dementia, and bipolar disorder who presents after increased weakness and confusion. Patient was diagnosed with MSSA bacteremia, ID was consulted. She developed upper extr pitting edema more pronounced on the right where AV fistula is located Sepsis, POA. Metabolic versus toxic encephalopathy. Bacteremia with MSSA , probably infected hemodialysis catheter - stable, not under control - Follow up cultures - ID consulted Plan - Vancomycin d/chaya, cefazolin started. - ECHO Upper extr edema more on the R where AV fistula is located - will do US of the upper extr to r/o clots. Anemia of chronic disease + ESRD - stable - monitor Acute Hypercalcemia - Improved - Monitor ESRD requiring Dialysis T,,Sat - Stable - Nephrology consulted Plan - Renal dose antibiotics as above - Monitor I&Os - Continue with Dialysis Hypertension - BP on the lower side - we will hold home meds Chronic Bipolar Disorder - Hold home meds for now DVT PROPHYLAXIS: Heparin Code status:full code Disposition: discharge after patient improves. Plan of care discussed with treatment team, patient; Labs, radiology tests reviewed. VTE Prophylaxis: SCDs VTE Mechanical Devices: Intermittant Pneumatic CD Resuscitation Status: CPR: Attempt Resuscitation Leif Louie MD Jul 10, 2017 15:24
--- NOTE | 2017-07-10 17:36 | NUR ---
Social Work: Initial Assessment/Multidisciplinary Rounds D: EMR reviewed. Please see Initial Assessment linked to this note for more information. Pt is a 71 year old female admitted [place] with a readmit risk score of 6 for UTI, sepsis, ESRD per H&P. Pt's insurance is Medicare and [facility] Supp. Pt has no PCP at this time. Pt discussed in multidisciplinary rounds, ID is following pt. Pt is very weak. Pt also may require half-way IV abx. SW met with pt's son in [place] to conduct initial assessment, pt's son requested that [employer] not disturb pt during this conversation. SW explained role and provided business card. SW provided [facility] Discharge Planning Checklist, son declined this information. Encouraged son to contact SW for any discharge planning questions. Pt lives at home in an apartment alone, though she is often at her son's home or her son is often at her home. Pt is not independent with ADLs and does require some cueing and housekeeping/meal assistance at home. Pt's son reports that pt is typically ambulatory with her walker and able to navigate the 7 stairs up until a few weeks ago. Pt's son reports that pt has never HH services at home. Pt has history of [facility] and this is the only SNF that pt's son would want pt to go to. Pt does not drive. Pt's son transports pt to dialysis three times weekly (, , Sat) at [facility]. Pt has no LTC or VA benefits. Pt's son is hopeful that she will progress and be able to return home and continue dialysis but is open to SNF for physical rehab if indicated. Pt's son receptive to additional d/c planning assistance and coordination. SW will continue to follow. A: Pt who is not independent at baseline and does require minimal assistance with self-care P: Evolving; unclear if pt will require SNF at discharge for administration of abx and skilled rehab for weakness or if pt will progress and be able to return home. SW will continue to follow closely until time of discharge. LEON Metzger Addendum: 07/10/17 at 1754 by BALDEMAR DAMON Amended: Links added.
--- NOTE | 2017-07-10 18:19 | DRSVH ---
[facility] [address] [place] [address] Echocardiogram Report Name: AMELIE CEDEÑO CStudy Date: 07/10/2017 Height: 60 in Hospital Exam Location: [facility] Weight: 146 lb Gender: Female BSA: 1.6 m2 : 1945 Age: 71 yrs BP: 129/74 mmHg Reason For Study: STAPH BACTERMEIA, CHECK EF Performed By: [facility] Staff Referring Physician: DEE BAEZ Interpretation Summary Normal sinus rhythm. Normal LV size; mild concentric LVH; normal wall motion and LV systolic function. EF is 55-60%. Stage I diastolic dysfunction. Borderline LA enlargement; otherwise normal chamber sizes. No significant valvular abnormalities. There is a pacing lead traversing the tricuspid valve with trace associated TR. There is no obvious vegetation present. Compared to prior study 09/27/2016, no changes have occurred. Procedure: A two-dimensional transthoracic echocardiogram with color flow and Doppler was performed. The study quality was technically difficult. Comparison is made with the echocardiogram of 09/27/16. The patient was in normal sinus rhythm during the exam. Left Ventricle: The left ventricle is normal in size. Left ventricular wall thickness is mildly increased. The ejection fraction is estimated to be 55- 60%. There are no focal wall motion abnormalities. Right Ventricle: The right ventricle grossly appears normal in size with probable normal systolic function. There is a pacemaker lead in the right ventricle. Atria: The left atrium is borderline dilated. The right atrium grossly appears normal in size. The interatrial septum is intact with no evidence for an atrial septal defect. Mitral Valve: The mitral valve leaflets appear borderline thickened, but open well. There is trace mitral regurgitation. Aortic Valve: The aortic valve is grossly normal. There is trace aortic regurgitation. Tricuspid Valve: The tricuspid valve is not well visualized, but is grossly normal. There is a trace or physiologic amount of tricuspid regurgitation. Pulmonary artery pressures cannot be estimated because of the lack of a measurable TR jet velocity. Pulmonic Valve: The pulmonic valve is not well visualized. There is a trace or physiologic amount of pulmonic regurgitation. Great Vessels: The aortic root is normal size. The dimensions of the ascending aorta are normal. The pulmonary artery is not well visualized, but is probably normal size. The IVC is of normal diameter and collapses greater than 50% with a sniff. This suggests a low right atrial pressure of 3 mm Hg. Pericardium/ Pleura There is no pericardial effusion. There is no pleural effusion. MMode/2D Measurements & Calculations LVIDd: 4.6 cm LVIDs: 3.0 cm LA A2 area: 19.2 cm FS: 35.1 % LA A4 area: 15.7 cm IVSd: 1.0 cm LA length (vol): 4.7 cm LVPWd: 1.1 cm LA vol: 54.4 ml LA vol index: 33.3 ml/m IVC diam: 1.7 cm LVOT diam: 2.1 cm LV holland. diameter/BSA (cm/m^2): 2.8 AoV Openin.4 cm Ao root diam: 2.9 cm asc Aorta Diam: 3.0 cm LV sys. diameter/BSA (cm/m^2): 1.8 Doppler Measurements & Calculations Ao V2 max: 135.6 cm/sec MV E max tibrucio: 67.0 cm/sec Ao max P.4 mmHg MV A max tiburcio: 83.9 cm/sec Ao mean P.0 mmHg LVOT Max Tiburcio: 124.9 cm/sec BRIANNA(I,D): 2.8 cm sev ratio: 0.83 MV E/A: 0.80 PA V2 max: 104.0 cm/sec Med Peak E' Tiburcio: 5.4 cm/sec PA mean P.2 mmHg E/E' med: 12.5 Lat Peak E' Tiburcio: 6.2 cm/sec E/E' lat: 10.8 E/e' average: 11.6 MV dec time: 0.22 sec Ao V2 mean: 93.5 cm/sec Ao V2 VTI: 29.5 cm BRIANNA(V,D): 3.1 cm2 LV V1 max P.2 mmHg PA V2 mean: 70.1 cm/sec LV V1 VTI: 24.6 cm PA pr(Accel): 59.9 mmHg BRIANNA indexed to BSA (cm^2/m^2): 1.7 Reading Physician:06:18 PM
[2017-07-10 19:45] VITALS: BP 127/80; PULSE 74; RESP 24; O2SAT 98
--- NOTE | 2017-07-10 19:52 | DRSVH ---
PROCEDURE: US VENOUS ARM DUPLEX UNILATERAL, LEFT INDICATIONS: Swolen R and Left arms TECHNIQUE: Real-time imaging, as well as color and pulse Doppler interrogation, was performed of the left upper extremity deep veins from the inferior neck to the antecubital fossa. COMPARISON: None. FINDINGS: The internal jugular vein, visualized portions of the subclavian vein, axillary, and brach ial veins are free of intraluminal thrombus. Where physically possible, the veins are normally compr essible. Color and pulse Doppler demonstrate normal intraluminal flow, with expected phasicity and p ulsatility. Additional scanning of the cephalic and basilic veins of the superficial system demonstr ate normal compressibility, without thrombus. IMPRESSION: No visualized deep venous thrombosis. Dictated by: Sneha Panchal M.D. on 07/10/2017 at 19:50 Approved by: Sneha Panchal M.D. on 07/10/2017 at 19:50
[2017-07-10 23:52] VITALS: BP 119/74; PULSE 70; RESP 24; O2SAT 95
[2017-07-11] VITALS (8 sets, daily range): BP systolic 87–127; BP diastolic 55–85; PULSE 60–77; RESP 18–24; O2SAT 94–97
[2017-07-11] MEDS: Heparin 5,000 Unit/mL Inj SUBQ SCH ×3 (00:17→16:21)
--- NOTE | 2017-07-11 06:39 | NUR ---
Shift note: Patient on and off restless throughout shift, repetitively stating "get me out of hear" but oriented to person and place. Patient redirected with TV and low stimulus environment. Edema still present in bilateral upper arms. No coughing this shift. VSS, no c/o of pain. Had BM this am, no voiding this shift. Will continue to monitor.
[2017-07-11] MEDS: Sucralfate 1,000 mg Tablet PO SCH ×2 (08:29→21:21)
--- NOTE | 2017-07-11 08:34 | NUR ---
Inpatient Wound Nurse A second deep tissue injury PI has been identified on L lateral heel. This dark purple and firm area measures 2 cm L x 1 cm W. No periwound erythema or tenderness is noted. Area was covered with bordered Mepilex and nursing staff are floating heels. Alert CWON if either heel wound begins draining or otherwise deteriorates.
--- NOTE | 2017-07-11 10:19 | PROG NOTE ---
[address] [address] PROGRESS NOTE PATIENT: AMELIE CEDEÑO : 1945 MR#: [id number] ADMIT: 07/07/2017 JOB ID: [id number] DATE: 07/11/2017 REASON FOR FOLLOWUP: High-grade MSSA bacteremia in the setting of an infected dialysis catheter which has now been removed in a patient who also has an indwelling pacemaker. INTERVAL HISTORY: Overnight, the patient seems more confused if anything than yesterday. Today, she repeats certain phrases which are not necessarily appropriate to the question asked. She does not wish to be examined in any detail and does not provide any additional useful history. PHYSICAL EXAMINATION: Reveals a woman who is lying in and appears to be confused. Temperature 35.8, pulse 68, respiratory rate 24, blood pressure 117/70. She is saturating well on room air. She has no conjunctival hemorrhages, but there are more erythematous lesions on the roof of the mouth raising the possibility that these are embolic or petechial. They could also be traumatic. Neck without notable new abnormalities. Lungs relatively clear. Cardiac tones regular rate and rhythm. Pacer in the left upper chest is nontender. The dialysis catheter site in the right upper chest is healing well and appears benign, it was pulled a few days ago and grew MSSA. The patient's abdomen is benign. LABORATORIES: Include white count 13,000 yesterday, not repeated today. Creatinine is 4.24 not repeated today. Blood cultures were positive for MSSA on the at that time. Urine also grew MSSA and the catheter tip from the dialysis catheter that was pulled on the also grew MSSA in greater than 15 colonies. More importantly, perhaps, the followup blood cultures on the are now growing Staph aureus in multiple bottles. IMPRESSION: This is a confusing difficult case of a woman with multiple medical problems, who has dementia, and a rather fluctuating mental status. Though her fevers have resolved and she seems a bit better in some ways. We now have persistence methicillin sensitive Staphylococcus aureus bacteremia for at least four days. This methicillin sensitive Staphylococcus aureus bacteremia seems to have arisen from her infected right chest hemodialysis catheter which has now been pulled, but her blood cultures were stained positive and in a patient with a pacer this is of great concern for either pacemaker infection and/or endocarditis. RECOMMENDATIONS: 1. Will continue with cefazolin as was started yesterday on a thrice weekly basis following dialysis. 2. The transthoracic echo that was done yesterday was nondiagnostic in terms of ruling out endocarditis or pacer infection and I think we will need a transesophageal echo. This will need to be arranged with the Cardiology service, but hopefully can be done tomorrow. 3. Daily blood cultures should continue until they are negative. 4. If blood cultures stay positive for a period of more than five days and especially if this persists for more than a week or so this will be relatively strong evidence that the pacer is infected and may need to be removed. 5. Note that the patient has some degree of underlying dementia though she apparently is able to live by herself until recently. This may play a role in decisions going forward about pacer removal and other invasive interventions.
--- NOTE | 2017-07-11 10:54 | PCM.PNNEPH ---
Subjective Date of Service Jul 11, 2017 Subjective Pt is seen during HD. UE venous Doppler revealed no DVT. She is more awake and talkative today. No fever overnight. Exam Vital Signs Vital Sign - Last Date Time Temp Pulse Resp B/P Pulse Ox O2 Delivery O2 Flow Rate FiO2 07/11/17 08:58 35.8 68 24 117/70 96 Room Air 07/09/17 19:50 3.00 Intake and Output 07/10/17 07/10/17 07/11/17 Cumulative From/Thru 15:00 23:00 07:00 07/07/17 20:02 - 07/11/17 06:19 Intake Total 1220 ml 400 ml 3994 ml Output Total 361 ml 0 ml 861 ml Balance 859 ml 400 ml 3133 ml Intake Oral 1220 ml 400 ml 2163 ml IV Total 1831 ml Output Urine Total 361 ml 0 ml 361 ml Ultrafiltrate 500 ml # Voids 2 # Bowel Movements 1 1 2 Exam General appearance: more awake and talkative today, responsive to verbal stimuli. HEENT: Atraumatic. Mild pallor. No icteric sclerae. No JVD. No lymphadenopathy. No thyroid enlargement. Heart: Regular rhythm. Normal S1, S2. No murmurs, rubs, or gallops. Chest: CTA, B/L. s/p right tunneled cath removed, pacemaker in place- no swelling, no redness, no fluid collection. Abdomen: Soft, nontender, nondistended. No hepatosplenomegaly. Extremities: Good pedal pulses bilaterally. Right arm AVF with good thrill and bruits. (+) bruises and mild swelling on UE. Lab and Diagnostics Result Diagram: 07/10/17 0707/10/17 0702 Microbiology Blood Cultures Pending Urine Culture Pending X-Rays, CTs and MRIs PROCEDURE: X-RAY CHEST ONE VIEW, PORTABLE IMPRESSION: No acute pulmonary process. Dictated by: Sneha Panchal M.D. on 07/07/2017 at 21:05 PROCEDURE: CT BRAIN WITHOUT CONTRAST IMPRESSION: 1. No acute intracranial process. 2. Moderate atrophy and chronic microvascular ischemic changes. Dictated by: Sneha Panchal M.D. on 07/07/2017 at 21:48 12-lead ECG Atrial Paced Complexes HR 74 Plan Impression 1. MSSA bacteremia secondary to HD cath, s/p removal. 2. Altered mental status secondary to metabolic encephalopathy in the setting of sepsis. improving. 3. End-stage renal disease, secondary to chronic interstitial nephritis from lithium use. 3.5 hr, 3K, 35HCO3, DFR 500, BFR 250, AVF, revaclear, UF 1500 mL. 4. Renal osteodystrophy. 5. Bipolar disorder. 6. s/p pace maker placement. PLAN: Follow ID rec. Next HD on Sat. Increase fluid removal today ~ 1500 mL. Danielle Rodgers MD Jul 11, 2017 10:54
[2017-07-11] MEDS ORDERED: CeFAZolin Inj 2 GM in IV Premix 1 EACH IV SCH (13:00)
--- NOTE | 2017-07-11 13:12 | PCM.PNMED ---
Subjective Date of Service Jul 11, 2017 Subjective Patient is in the bed, looks weak, ill, repeat blood cultures are positive for staph aureus again. Discussed with infectious disease team, they advised transesophageal echocardiography. Discussed with lumber planer Dr. Vega, she will do ARTI probably tomorrow. Exam Vital Signs Vital Sign - Last Date Time Temp Pulse Resp B/P Pulse Ox O2 Delivery O2 Flow Rate FiO2 07/11/17 10:53 65 07/11/17 08:58 35.8 24 117/70 96 Room Air 07/09/17 19:50 3.00 Intake and Output 07/10/17 07/10/17 07/11/17 Cumulative From/Thru 15:00 23:00 07:00 07/07/17 20:02 - 07/11/17 06:19 Intake Total 1220 ml 400 ml 3994 ml Output Total 361 ml 0 ml 861 ml Balance 859 ml 400 ml 3133 ml Intake Oral 1220 ml 400 ml 2163 ml IV Total 1831 ml Output Urine Total 361 ml 0 ml 361 ml Ultrafiltrate 500 ml # Voids 2 # Bowel Movements 1 1 2 Exam GENERAL: Alert, weak, looks ill HEAD: atraumatic, normocephalic EYES: EOMI, anicteric SKIN: Skin color normal, turgor normal. No visible rashes or lesions. EAR, NOSE, MOUTH, THROAT: Lips, oral mucosa, tongue are moist, pink, no lesions. NECK: no jugulovenous distention; supple ROM normal. RESPIRATORY: Lungs clear to auscultation. Good diaphragmatic excursion. CARDIAC: normal S1 and S2; no rubs,or gallops; regular rhythm ABDOMEN: Abdomen soft, non-tender. BS normal. MUSCULOSKELETAL: ROM full, muscles are not tender EXTREMITIES: pitting edema in upper extr b/l, no new deformities NEURO: Alert, oriented X 2, Cranial nerves II-XII intact, Grossly normal motor function. PULSES: 2+ radial, 2+ carotid REVIEW OF SYSTEMS: GENERAL: no malaise, no fevers., SEE HPI HEENT: Negative for frequent or significant headaches All other reviewed and negative other than HPI. IVs and Medications Medications Reviewed: Medications were reviewed in detail Lab and Diagnostics Result Diagram: 07/10/17 0702 07/10/17 0702 Microbiology Blood Cultures Pending Urine Culture Pending X-Rays, CTs and MRIs PROCEDURE: X-RAY CHEST ONE VIEW, PORTABLE IMPRESSION: No acute pulmonary process. Dictated by: Sneha Panchal M.D. on 07/07/2017 at 21:05 PROCEDURE: CT BRAIN WITHOUT CONTRAST IMPRESSION: 1. No acute intracranial process. 2. Moderate atrophy and chronic microvascular ischemic changes. Dictated by: Sneha Panchal M.D. on 07/07/2017 at 21:48 12-lead ECG Atrial Paced Complexes HR 74 Assessment & Plan Patient is a 71 y/o female with past medical history of CVA, ESRD on ,,Sat Dialysis, HTN, pacemaker, dementia, and bipolar disorder who presents after increased weakness and confusion. Patient was diagnosed with MSSA bacteremia, ID was consulted. She developed upper extr pitting edema more pronounced on the right where AV fistula is located. Ultrasound of the both upper extremities was negative for clots. Repeat bacterial cultures were positive for staph aureus. Patient will need ARTI. Cardiology consulted for that. Sepsis, POA. Metabolic versus toxic encephalopathy. Bacteremia with MSSA , probably infected hemodialysis catheter - stable, not under control - Follow up cultures - ID consulted Plan -Continue with cefazolin - ARTI - Daily blood cultures Upper extr edema more on the R where AV fistula is located - Improving - US of the upper extr did not show clots or AVF thrombosis - Elevate both arms. ESRD requiring Dialysis ,,Sat - Stable - Nephrology consulted Plan - Renal dose antibiotics as above - Monitor I&Os - Continue with Dialysis Anemia of chronic disease + ESRD - stable - monitor Acute Hypercalcemia - Improved - Monitor Hypertension - BP on the lower side - Continue to hold home meds Chronic Bipolar Disorder - Hold home meds for now DVT PROPHYLAXIS: Heparin Code status:full code Disposition: discharge after patient improves. Plan of care discussed with treatment team, patient; Labs, radiology tests reviewed. VTE Prophylaxis: SCDs Resuscitation Status: CPR: Attempt Resuscitation Leif Louie MD Jul 11, 2017 13:12
--- NOTE | 2017-07-11 14:45 | CONS ---
[address] [address] CONSULTATION REPORT PATIENT: AMELIE CEDEÑO : 1945 MR#: [id number] ADMIT: 07/07/2017 JOB ID: [id number] DATE OF SERVICE: 07/11/2017 IDENTIFICATION: Dr. Jacy Yadav has asked that I consult on this 71-year-old female for consideration of ARTI to evaluate for possible endocarditis. HISTORY: The patient is a 71-year-old female with a longstanding history of bipolar and anxiety disorder on hemodialysis for end-stage renal disease, as well as a history of hypertension and previous CVA, but no previous cardiac history with the exception of a longstanding history of asymptomatic bradycardia until she was admitted on July 22, 2016 following a fall and was noted to have heart rates in the 20s and 30s with pauses up to 5 seconds. She was evaluated by Dr. Helms and had an echocardiogram that showed normal LV systolic function with an EF of 55%-60% with mild aortic regurgitation but no other abnormalities. She subsequently underwent an implantation of a [employer] dual-chamber pacemaker by Dr. Jones. She has subsequently been followed in our pacemaker clinic but has not had any further cardiac issues. She was admitted in September 2016 with a GI bleed with a hematocrit of 17% and was found to have a gastric ulcer but a normal esophagus. She underwent repeat EGD on October 2016 revealing a healing ulcer. She was admitted on July 08, 2017 with confusion, weakness, and a fever to 102 without an obvious source although she had an indwelling dialysis catheter. She subsequently grew methicillin sensitive Staph aureus and her dialysis catheter has been removed and she was started on antibiotics although she has continued to have low-grade fevers to 37.4. A transthoracic echocardiogram was obtained which I have personally reviewed and again shows normal LV systolic function with an EF 55%-60% without focal abnormality. There again is mild aortic insufficiency but no other valvular abnormality and specifically no vegetation seen on the valves or the pacemaker lead. However, Dr. Stover has recommended transesophageal echocardiography for further evaluation. The patient cannot provide any cogent history as she simply mumbles when I ask her questions and gives nonsensical answers. Her past medical history, family history, social history and review of systems are all outlined in previous notes and reviewed and are not repeated here. PHYSICAL EXAMINATION: Elderly female, currently undergoing dialysis. HR 68, BP 117/70, O2 saturation 96% on room air. Temperature this morning was 36.9 degrees. Lungs: Clear bilaterally to auscultation. CV: Regular rate and rhythm without any appreciable murmurs or gallops. There is no obvious JVD. Abdomen: Moderately obese but nondistended, nontender without any palpable masses or organomegaly. Extremities: Warm without edema. LABORATORY: White count is 13.4 with a hematocrit of 27%. Sodium this morning was 133 with a potassium of 4.2, and a BUN of 67 and a creatinine of 4.2, but she is currently undergoing dialysis. A chest x-ray on admission showed no acute pulmonary process. Her last pacemaker interrogation was on April 04, 2017 and showed normal pacemaker function with 57% atrial pacing, and 2% ventricular pacing. IMPRESSION: 1. Staph bacteremia of uncertain source. There is no obvious evidence for active endocarditis although this certainly cannot be excluded given her positive blood cultures. Transesophageal echocardiography could be helpful in determining the duration of antibiotic therapy although if she did have some significant destructive valvular lesion, I would be reluctant to send this patient to surgery. As such, if ARTI proves challenging, then I have a low threshold to abort the procedure and simply treat her empirically with six weeks of antibiotics. I have attempted to obtain informed consent from the patient, although I am not certain that she is cognitively fit for such. I will attempt to receive informed consent from her son. She will need to be n.p.o. after midnight. Currently, she is planned to have a ARTI around 1 p.m. in the [facility]. I will ask anesthesiology service to assist with sedation given her history of anxiety. 2. Pacemaker. Appears to be functioning normally. PLAN: 1. Keep the patient n.p.o. after midnight. 2. Anticipate a ARTI with assistance of anesthesiology tomorrow afternoon. 3. Further recommendations dependent upon those results. 4. Will attempt to obtain informed consent from her son. I spent 1 hour and 5 minutes reviewing the patient's medical record and interviewing and examining the patient, and arranging for her ARTI. KRISTIAN
--- NOTE | 2017-07-11 15:05 | NUR ---
KYLIE KYLIE acknowledged by pt's son over the phone. Madhuri Mcclain MULTIPLE KNIFE EDGE TRIMMER OPERATOR
--- NOTE | 2017-07-11 15:34 | NUR ---
Dialysis note. Pt had 4hrs HD, UF total 1.5kg removed, QB250, QD 600, Pt tolerated well. JEANNE AVF, 17g needle x2 successful at 1st attempt of cannulation. This is 2nd tx with 17g x2. Pt's brief changed upon arrival, incontinent with urine. RN checked post tx pt is dry. RN report given to INOCENCIA Jha RN. See DTR for detail VS. Stable at end of tx.
--- NOTE | 2017-07-11 16:25 | NUR ---
Off unit for Dialysis Patient on MOC for dialysis from 0930 to 1630. BP upon return was 87/55; confirmed with aircraft powertrain repairer that this was her trends throughout treatment; notified. Dr. Vega paged to bedside to have consent signed for ARTI with son Angel.
[2017-07-12] VITALS (20 sets, daily range): BP systolic 103–146; BP diastolic 41–74; PULSE 60–78; RESP 16–28; O2SAT 92–99
[2017-07-12] MEDS ORDERED: Propofol 10,000 mCg/mL 20 mL Inj ONE (01:24)
[2017-07-12] MEDS ORDERED: Phenylephrine/NS 100 mCg/mL 10 mL Syringe IVPUSH ONE (01:24)
[2017-07-12] MEDS: Heparin 5,000 Unit/mL Inj SUBQ SCH ×3 (02:57→16:30)
--- NOTE | 2017-07-12 04:34 | NUR ---
Tarry Stools/Bladder Scan Patient has had two large tarry, black stools this shift. One sample sent to lab. Patient not able to communicate when need to have a bm. Patient not spontaneously voiding. Denies pain or being uncomfortable. Bladder scan indicated 388ml residual and 417 ml residual. Patient requested she wanted medication to help sleep. Dr. Huff paged. No response as of yet. Patient would like to wait to be catheterized . RN in room to monitor coughing and nausea. VSS. Call light within reach. Care continues. Addendum: 07/12/17 at 0443 by EVGENY MIRANDA RN Nursing note recorded on wrong patient. Please disregard
--- NOTE | 2017-07-12 04:47 | NUR ---
Edema/Activity On initial assessment , patients right and left arm are edematous. Right arm appears to be weeping. VSS. Patient is slightly confused and asks for food with each rounding assessment. Patient requested not to be moved ; states it is painful to be moved. Patient reminded how to use call light. Hourly rounding continues.
[2017-07-12] MEDS: Sucralfate 1,000 mg Tablet PO SCH ×2 (08:30→23:01)
--- NOTE | 2017-07-12 10:33 | NUR ---
NUTRITION FOLLOW UP: ASSESS: 71 YO female admitted for UTI, sepsis and infected HD catheter, today made NPO for ARTI to rule out possibility of endocarditis with positive blood cultures. Pt with disorientation/confusion, unable to obtain meal preferences as pt continues with poor oral intake, x 5days now. Of note, pt's wt has increased 12kg since October 2016. ST involvement 2/2 dysphagia/aspiration risk. PMHx: ESRD secondary to chronic interstitial nephritis no on HD, anemia secondary to GI bleed and CKD stage 5 s/p EGD, bipolar disorder, depression, dementia. LABS: Reviewed. Alb 2.3, BUN 67, Cr 42.4,Alb 2.3 MEDS: Reviewed. GI: 1 BM 07/11 CURRENT WT: 66.2kg, BMI 28.5kg/m2, Wt October 2016: 54.2kg, Wt Oct 2015: 73 kg. DIET: (NPO for procedure per RN); Renal Puree Honey thick liquids (per ST), PO bites-25% x 5 days SKIN: 2 pressure injuries on heels. EST. NEEDS (ESRD on HD) Kcals: 0564-1472 kcals (30-40 kcals/kg BW) Protein: 80-120 g protein (1.2-1.8 g/kg BW) NUTRITION DIAGNOSIS: 1.) Inadequate oral intake related to decreased cognition as evidenced by current NPO status and poor po intake now x 5 days.-PERSISTS 2.) Increased nutrient needs related to increased demand for nutrients as evidence by pt on HD/skin concerns-- PERSISTS. NUTRITION INTERVENTION: 1.) Advance diet as able per ST recommendations. 2.) Continue to send Nepro on L tray.Will add magic cup to alternate meals. Consider nutrition support if po intake remains depressed next 2-3 days. MONITOR / EVAL: Diet advancement / tolerance, wt, ST, labs, nutritional status, POC. Follow per high nutritional risk guidelines.
--- NOTE | 2017-07-12 12:05 | PCM.PNNEPH ---
Subjective Date of Service Jul 12, 2017 Subjective Right arm swelling. HD with UF 1.5L. NPO for ARTI today. Exam Vital Signs Vital Sign - Last Date Time Temp Pulse Resp B/P Pulse Ox O2 Delivery O2 Flow Rate FiO2 07/12/17 09:31 37.5 69 20 104/66 92 Room Air 07/09/17 19:50 3.00 Intake and Output 07/11/17 07/11/17 07/12/17 Cumulative From/Thru 15:00 23:00 07:00 07/07/17 20:02 - 07/12/17 05:33 Intake Total 160 ml 100 ml 4254 ml Output Total 1501 ml 0 ml 2362 ml Balance -1341 ml 100 ml 1892 ml Intake Oral 160 ml 100 ml 2423 ml IV Total 1831 ml Output Urine Total 1 ml 0 ml 362 ml Ultrafiltrate 1500 ml 2000 ml # Voids 2 # Bowel Movements 0 2 Exam General appearance: more awake and talkative today, responsive to verbal stimuli. HEENT: Atraumatic. Mild pallor. No icteric sclerae. No JVD. No lymphadenopathy. No thyroid enlargement. Heart: Regular rhythm. Normal S1, S2. No murmurs, rubs, or gallops. Chest: CTA, B/L. s/p right tunneled cath removed, pacemaker in place- no swelling, no redness, no fluid collection. Abdomen: Soft, nontender, nondistended. No hepatosplenomegaly. Extremities: Good pedal pulses bilaterally. Right arm AVF with good thrill and bruits. (+) bruises and marked swelling on UE R>L. Lab and Diagnostics Result Diagram: 07/10/1770107/10/17 07 Microbiology Blood Cultures Pending Urine Culture Pending X-Rays, CTs and MRIs PROCEDURE: X-RAY CHEST ONE VIEW, PORTABLE IMPRESSION: No acute pulmonary process. Dictated by: Sneha Panchal M.D. on 07/07/2017 at 21:05 PROCEDURE: CT BRAIN WITHOUT CONTRAST IMPRESSION: 1. No acute intracranial process. 2. Moderate atrophy and chronic microvascular ischemic changes. Dictated by: Sneha Panchal M.D. on 07/07/2017 at 21:48 12-lead ECG Atrial Paced Complexes HR 74 Plan Impression 1. MSSA bacteremia secondary to HD cath, s/p removal. 2. Altered mental status secondary to metabolic encephalopathy in the setting of sepsis. improving. 3. End-stage renal disease, secondary to chronic interstitial nephritis from lithium use. 4. Right arm swelling, r/o central venous stenosis. 5. Renal osteodystrophy. 6. Bipolar disorder. 7. s/p pace maker placement. PLAN: ARTI today. Follow ID rec. Next HD on Sat. Fistulogram of AVF on Saturday to rule out stenosis. Elevated right arm. Danielle Rodgers MD Jul 12, 2017 12:05
--- NOTE | 2017-07-12 12:45 | PCM.HPANE ---
Patient Data Date of Service: Jul 12, 2017 Surgeon Admitting Provider:Leander Mena MD Attending Provider:Leif Louie MD Primary Care Physician:Nopcp Other Provider:Danielle Rodgers MD Reason for Visit Uti, Sepsis, Esrd, Delirium UTI, SEPSIS, ESRD, DELIRIUM Ht/WT & BMI Height (Feet): 5 Height (Inches): 0.00 Weight (Kilograms): 66.200 Body Mass Index 28.65 Allergies Coded Allergies: Penicillins (Verified Allergy, Unknown, unknown (HAS TAKEN CEPHALOSPORINS IN THE PAST W/O PROBLEMS), 03/21/17) Past Anesthesia History Anesthesia History: Denies:: Abnormal Airway, Anesthesia Reactions, Difficult Intubation, Fam Anesthesia Reaction, Fam Malignant Hypertherm, Malignant Hyperthermia Diabetes History Hx Diabetes?: No Current Bedside Blood Glucose: 105 MRSA MRSA: Yes (HX OF) Medications Hypertension Medication: No Active Scripts Risperidone (Risperdal)1 Mg Tablet0.5 Mg PO HS #30 TABLET Prov:Toni Lay 11/19/16 Reported Medications Omeprazole 20 Mg Capsule.dr20 Mg PO DAILY #30 03/25/17 Risperidone 0.5 Mg Tablet0.25 Mg PO AM #60 03/25/17 Cinacalcet (Sensipar)30 Mg Mpyafz59 Mg PO DAILY Ref 0 03/21/17 Sevelamer Carbonate (Renvela)800 Mg Memrab942 Mg PO BID 90 Days 03/21/17 Bisacodyl (Dulcolax Rectal)10 Mg Supp.rect10 Mg RC DAILY PRN For Constipation 30 Days Ref 0 03/21/17 Acetaminophen 325 Mg Dsdtpbt550 Mg PO q6 hours PRN For Pain 11/05/16 Sucralfate 1 Gm Tablet1 Gm PO BID 30 Days Ref 0 11/05/16 Dextran 70/Hypromellose/Pf (Artificial Tears Drops)1 Each Droperette2 Drop BOTH_ EYES prn PRN dry eyes #1 BOTTLE 11/05/16 Ascorbic Acid (Vitamin C)250 Mg Tab.idjh262 Mg PO DAILY #30 TABLET Ref 0 11/05/16 Ferrous Sulfate 325 Mg Cybfgg896 Mg PO DAILY 30 Days Ref 0 11/05/16 Amlodipine 10 Mg Gdmepq21 Mg PO DAILY #30 09/14/16 History History of ENT Problems?: Yes HEENT History: Positive for:: Sinus Problem Denies:: Abnormal Airway Cataracts Difficult Intubation Dysphagia Glaucoma Denture Type: None Teeth Condition: Within Normal Limits Hx of Heart Problems?: Yes Cardiovascular History: Positive for:: Cardiac Surgery (2016 pacemaker) Hypertension Irregular Heartbeat Pacemaker (S/P 07/2016 FOR SICK SINUS SYNDROME) Valvular Heart Disease (MILD AR) Denies:: Atrial Fibrillation Chest Pain Congestive Heart Failure Edema Heart Murmur (ECHO 09/2016 EF 65-70%) Thrombophlebitis Other History/Comments SSS s/p DC PPM 57% AP last interrogation C/F staph endocarditis, ARTI today. TTE with nml RV/LV fn and Mild AI Hx of Respiratory Problem?: No Respiratory History: Denies:: Asthma COPD Chest Surgery Dyspnea Emphysema Hemoptysis Pneumonia Tuberculosis Use of C-PAP Machine Hx Neurologic Problems?: Yes Neurological History: Positive for:: CVA (09/2015) Dementia (hospital delirium) Dizziness Denies:: Alzheimer's Disease Headaches Parkinson's Disease Seizures Other History/Comments Pleasantly confused Hx of GI Problems?: Yes Gastrointestinal History: Positive for:: Gastroesphageal Reflux Denies:: Cirrhosis Hepatitis Liver Disease Hx of Problems?: Yes Genitourinary History: Positive for:: HX of Hemodialysis (ESRD STAGE 4/ DIALYSIS ACCESS) Urinary Tract Infection Denies:: Kidney Stones Other History/Comment ESRD with HD yesterday, no hx of hyperkalemia in recent records. Female Hx: Denies:: Currently (S/P BTL) Endometriosis Pelvic Inflammatory Problems with Breasts? Skin History: Positive for:: History Skin Disorders? Denies:: Pressure Ulcers Hx Musculoskeletal Problems?: Yes Musculoskeletal History: Denies:: Back Injury Joint Replacement Musculoskeletal Trauma Hx of Psycho/Social Problems?: Yes Psycho Social History: Positive for:: Anxiety Bipolar Disorder Denies:: Hx Depression Suicide Attempt Hx Surgeries?: Yes (PACER,PARATHYROIDECTOMY,LUMBAR SURG,BTL,TONSILS,CTR,APPY, IJ CATH) Hx Any Other Health Problems?: Yes Other History: Positive for:: Hospitalization Thyroid Disease (S/P EXC PARATHYROID) Denies:: Cancer Endocrine Disease History Blood Transfusions: Positive for:: Accept Blood Products? Blood Transfusions Denies:: Blood Transfuse Reaction Hx Diabetes: NoBedside Blood Glucose: 105 Hx Alcohol Use: Yes (history of alcohol abuse, quit 28 years ago)Hx Substance Use: No Smoking Status: Former Smoker (Quit 2 years ago and smoked 1ppd for 25 years) Have You Smoked inLast 12 mo: No Stop/Bang Treated for Sleep Apnea?: No Do You Have a CPAP Machine?: No S-Snoring: Do You Snore Loudly: No T-Tired: feel tired, fatigued: No O-Obsered: Observed not breath: No P-Blood Pressure: treated: Yes B- Body Mass Index > 35 kg/m2: Yes A- Age over 50: Yes N- Neck Large Circumference: No G- Gender Male: No MARLENI Total Score: 3 MARLENI Risk Assessment: High Risk, =/>3 Yes MARLENI Category 2: Yes Risk Assessment Category Category 1A: Patient has history of documented sleep apnea, and HAS NOT received any narcotic, sedative or anesthesia administration during this stay. Category 1B: Patient has history of documented sleep apnea, and HAS received any narcotic , sedative or anesthesia administration during this stay Category 2: Patient has SUSPECTED Obstructive Sleep Apnea, and HAS received any narcotic , sedative or anesthesia administration during this stay. Category 3: Patient has SUSPECTED Obstructive Sleep Apnea and HAS NOT received narcotic, sedative or anesthesia administration during this stay. Category 4: Outpatient in Procedural Areas with known sleep apnea or who screen positive for High Risk via the STOP/BANG questionnaire. Exam Exam Vital Signs Vital Signs Date Time Temp Pulse Resp B/P Pulse Ox O2 Delivery O2 Flow Rate FiO2 07/12/17 09:31 37.5 69 20 104/66 92 Room Air 07/12/17 09:30 Supplement Oxygen 07/12/17 08:00 72 07/12/17 05:15 72 General Appearance: Alert (Alert, answers questions somewhat appropriately but tangential, mumbles a lot), Cooperative HEENT/AIRWAY: MP 2 Lungs: Normal Air Movement, Rhonchorus (Projected upper airway noises to periphery) Heart: Exam Unremarkable, Regular Rate/Rhythm, No Murmurs/Rubs/Gallops Meds/Labs/Diagnostics Admission Meds Current Medications Cefazolin Sodium/ Dextrose/Premix (Ancef Inj/IV Premix) 50 ml @ 100 mls/hr TuTh @13 IV Last administered on 07/11/17t 16:15; Start 07/11/17 at 13:00 Bedside Blood Glucose: 105 Labs Test 07/07/17 21:16 07/07/17 21:28 07/07/17 22:53 07/08/17 04:40 Band Neutrophils % 8% (1-5) Lactic Acid Level 1.5mmol/L (0.4-2.0) Magnesium Level 1.8mg/dL (1.6-2.6) Troponin T 0.075ug/L (0.0-0.011) Urine Legionella pneumophilia Ag Negative (Negative) Urine Color Yellow (YELLOW) Urine Appearance Slightly cloudy Urine pH 6.0 (5.0-8.0) Urine Specific Ruth 1.010 (1.003-1.035) Urine Protein 100mg/dL (NEG,TRACE) Urine Glucose (UA) Negativemg/dL (NEGATIVE) Urine Ketones Negativemg/dL (NEGATIVE) Urine Occult Blood Small (NEGATIVE) Urine Nitrite Negative (NEGATIVE) Urine Bilirubin Negative (NEGATIVE) Urine Urobilinogen Normalmg/dL (NORMAL) Urine Leukocyte Esterase Trace (NEGATIVE) Urine RBC 3-10/hpf (0-2) Urine WBC 11-50/hpf (0-5) Urine Epithelial Cells Moderate/hpf (NONE-MOD) Urine Crystals None seen (NONE SEEN) Urine Bacteria Many/hpf (NONE-FEW) Urine Hyaline Casts None/lpf (NONE) Urine Granular Casts None seen (NONE SEEN) Urine Waxy Casts None seen (NONE SEEN) Urine Red Blood Cell Casts None seen (NONE SEEN) Urine White Blood Cell Casts None seen (NONE SEEN) Urine Mucus None seen (None Seen) Urine Trichomonas None seen (NONE SEEN) Urine Yeast None (NONE SEEN) Urinalysis Comment None Urine Culture Reflexed Indicated Neutrophils (%) (Auto) 85.5% (40-74) Lymphocytes (%) (Auto) 3.4% (14-46) Monocytes (%) (Auto) 10.2% (4-12) Eosinophils (%) (Auto) 0.1% (0-5) Basophils (%) (Auto) 0.1% (0-3) Test 07/08/17 04:46 07/08/17 23:45 07/09/17 04:42 07/10/17 07:02 Vitamin B12 Level 926pg/mL (211-946) Folate > 19.9ng/mL (>3.0) Procalcitonin 12.74ng/mL (0.00-0.08) Phosphorus Level 5.0mg/dL (2.5-4.9) Total Bilirubin 0.9mg/dL (0.0-1.2) Aspartate Amino Transf (AST/SGOT) 33U/L (0-50) Alanine Aminotransferase (ALT/SGPT) 30U/L (0-32) Alkaline Phosphatase 235U/L (25-165) Total Protein 4.5g/dL (6.4-8.4) Albumin 2.3g/dL (3.4-5.0) Random Vancomycin Level 18.6ug/mL Rx White Blood Count 13.4th/mm3 (3.8-10.1) Red Blood Count 2.67mil/mm3 (3.90-5.20) Hemoglobin 8.9g/dL (12.0-15.6) Hematocrit 27.2% (35.0-46.0) Mean Corpuscular Volume 101.9fL (81-100) Mean Corpuscular Hemoglobin 33.3pg (27.0-35.0) Mean Corpuscular Hemoglobin Concent 32.7% (32.0-37.0) Red Cell Distribution Width 14.1% (12.3-15.4) Platelet Count 155bil/L (150-400) Hold Purple Top Tube Received (Received) Sodium Level 133mEq/L (134-144) Potassium Level 4.2mEq/L (3.5-5.2) Chloride Level 91mEq/L (97-108) Carbon Dioxide Level 26mmol/L (18-29) Blood Urea Nitrogen 67mg/dL (8-27) Creatinine 4.24mg/dL (0.57-1.00) Estimat Glomerular Filtration Rate 15mL/min (>59) Glucose Level 163mg/dL (60-99) Calcium Level 9.0mg/dL (8.5-10.1) Hold Stewart Top Tube Received (Received) Test 07/11/17 04:42 Vancomycin Level Trough 15.8mcg/mL Plan Impression Patient chart reviewed, patient interviewed and anesthestic plan with risks, benefits, and alternatives discussed, and informed consent obtained. NPO per Anesth. Guidelines: Yes ASA Physical Status: ASA3 Severe Disease Anesthetic Plan: MAC Bene/Risks/Altern/Consents: Yes HP Complete Prior to Induction: Yes Other Discussed periop risks with son, POA, comfortable with proceeding. Calixto Rittre MD Jul 12, 2017 12:45
--- NOTE | 2017-07-12 12:46 | NUR ---
ARTI Patient arrived to [facility] via bed for ARTI. Report received from Kallie Hurst RN. Pt. NPO since midnight, consent signed DPOA 07/11/17. Procedure to take place with assistance of anesthesia. Staff introduced to patient and procedure explained.
--- NOTE | 2017-07-12 14:08 | PCM.ANEP1 ---
Post Anesthesia PACU Phase 1 Assessment Date of Service: Jul 12, 2017 Vital Signs Vital Signs Date Time Temp Pulse Resp B/P Pulse Ox O2 Delivery O2 Flow Rate FiO2 07/12/17 13:57 20 125/45 98 Nasal Cannula 2.00 07/12/17 13:50 18 122/45 98 Nasal Cannula 2.00 07/12/17 13:46 16 125/49 98 Nasal Cannula 3.00 07/12/17 13:41 16 121/50 99 Nasal Cannula 07/12/17 13:37 60 19 113/50 07/12/17 13:35 18 113/50 98 Nasal Cannula 3.00 07/12/17 12:43 68 124/49 07/12/17 09:31 37.5 69 20 104/66 92 Room Air 07/12/17 09:30 Supplement Oxygen 07/12/17 08:00 72 Anesthetic Administered: MAC Level of Alertness: Awake, talking Pain: No Nausea or Vomiting: No CV Function & Hydration Stable: Yes Airway Device: Oxygen Delivery: Nasal Cannula Lungs: Clear to Auscultation, Normal Air Movement PACU Phase 2 Assessment Complications: No Follow up Care: No Patient Instructions Provided: N/A (Well tolerated anesthetic, woke up with apparently awareness.) Calixto Ritter MD Jul 12, 2017 14:08
--- NOTE | 2017-07-12 14:19 | PCM.PNMED ---
Subjective Date of Service Jul 12, 2017 Subjective Patinet is in the bed, weak. ARTI today. Exam Vital Signs Vital Sign - Last Date Time Temp Pulse Resp B/P Pulse Ox O2 Delivery O2 Flow Rate FiO2 07/12/17 14:08 Nasal Cannula 07/12/17 13:57 20 125/45 98 2.00 07/12/17 13:37 60 07/12/17 09:31 37.5 Intake and Output 07/11/17 07/11/17 07/12/17 Cumulative From/Thru 15:00 23:00 07:00 07/07/17 20:02 - 07/12/17 05:33 Intake Total 160 ml 100 ml 4254 ml Output Total 1501 ml 0 ml 2362 ml Balance -1341 ml 100 ml 1892 ml Intake Oral 160 ml 100 ml 2423 ml IV Total 1831 ml Output Urine Total 1 ml 0 ml 362 ml Ultrafiltrate 1500 ml 2000 ml # Voids 2 # Bowel Movements 0 2 Exam GENERAL: Alert, weak HEAD: atraumatic, normocephalic EYES: EOMI, anicteric SKIN: Skin color normal, turgor normal. No visible rashes or lesions. EAR, NOSE, MOUTH, THROAT: Lips, oral mucosa, tongue are moist, pink, no lesions. NECK: no jugulovenous distention; supple ROM normal. RESPIRATORY: Lungs clear to auscultation. Good diaphragmatic excursion. CARDIAC: normal S1 and S2; no rubs,or gallops; regular rhythm ABDOMEN: Abdomen soft, non-tender. BS normal. MUSCULOSKELETAL: ROM full, muscles are not tender EXTREMITIES: pitting edema in upper extr b/l, no new deformities NEURO: Alert, oriented X 2, Cranial nerves II-XII intact, Grossly normal motor function. PULSES: 2+ radial, 2+ carotid REVIEW OF SYSTEMS: GENERAL: no malaise, no fevers., SEE HPI HEENT: Negative for frequent or significant headaches All other reviewed and negative other than HPI. IVs and Medications Medications Reviewed: Medications were reviewed in detail Lab and Diagnostics Result Diagram: 07/10/17 0707/10/17 07 Microbiology Blood Cultures Pending Urine Culture Pending X-Rays, CTs and MRIs PROCEDURE: X-RAY CHEST ONE VIEW, PORTABLE IMPRESSION: No acute pulmonary process. Dictated by: Sneha Panchal M.D. on 07/07/2017 at 21:05 PROCEDURE: CT BRAIN WITHOUT CONTRAST IMPRESSION: 1. No acute intracranial process. 2. Moderate atrophy and chronic microvascular ischemic changes. Dictated by: Sneha Panchal M.D. on 07/07/2017 at 21:48 12-lead ECG Atrial Paced Complexes HR 74 Assessment & Plan Patient is a 71 y/o female with past medical history of CVA, ESRD on T ,Th,Sat Dialysis, HTN, pacemaker, dementia, and bipolar disorder who presents after increased weakness and confusion. Patient was diagnosed with MSSA bacteremia, ID was consulted. She developed upper extr pitting edema more pronounced on the right where AV fistula is located. Ultrasound of the both upper extremities was negative for clots. Repeat bacterial cultures were positive for staph aureus. Cardiology consulted for ARTI Sepsis, POA. Metabolic versus toxic encephalopathy. Bacteremia with MSSA , probably infected hemodialysis catheter - stable, not under control - Follow up cultures - ID consulted - cardiology consulted Plan -Continue with cefazolin - ARTI - Daily blood cultures Upper extr edema more on the R where AV fistula is located - Improving - US of the upper extr did not show clots or AVF thrombosis - Elevate both arms. ESRD requiring Dialysis T,Th,Sat - Stable - Nephrology consulted Plan - Renal dose antibiotics as above - Monitor I&Os - Continue with Dialysis Anemia of chronic disease + ESRD - stable - monitor Acute Hypercalcemia - Improved - Monitor Hypertension - BP on the lower side - Continue to hold home meds Chronic Bipolar Disorder - Hold home meds for now DVT PROPHYLAXIS: Heparin Code status:full code Disposition: discharge after patient improves. Plan of care discussed with treatment team, patient; Labs, radiology tests reviewed. VTE Prophylaxis: SCDs VTE Mechanical Devices: Intermittant Pneumatic CD Resuscitation Status: CPR: Attempt Resuscitation Leif Louie MD Jul 12, 2017 14:19
--- NOTE | 2017-07-12 14:33 | NUR ---
ARTI Recovery ARTI completed at 1340, recovery uncomplicated. VSS with RA SaO2 97%. Conversation mostly appropriate though difficult to understand at times as noted on arrival. Total medication during procedure propofol 70mg with 100cc LR. Transporting back to room 1003 via bed and report will be given at bedside.
--- NOTE | 2017-07-12 14:42 | DRSVH ---
[facility] [address] [place] [address] Echocardiogram Report Name: AMELIE CEDEÑO CStudy Date: 07/12/2017 Height: 60 in Hospital Exam Location: [facility] Weight: 146 lb Gender: Female BSA: 1.6 m2 : 1945 Age: 71 yrs BP: 124/49 mmHg Reason For Study: ENDOCARDITIS Ordering Physician: Performed By: Jonathon Baird Interpretation Summary The left ventricle is normal in size, wall thickness, and systolic function without any focal wall motion abnormalities. The right ventricle grossly appears normal in size with probable normal systolic function. There is a pacemaker lead in the right ventricle that is only moderately well seen but no obvious vegetation is identified. There is a catheter/pacemaker lead seen in the right atrium that is only poorly seen but no obvious vegetation is identified. There is no significant valvular heart disease and specifically, no obvious valvular vegetation identified on this exam. Multiple moderate atherosclerotic plaques are identified in the descending aorta, some with associated peduculated mobile masses that most likely represent associated thrombus. Consider anticoagulation with clopidogrel and statin therapy if clinically appropriate. Procedure: An intravenous line was placed. A topical anesthetic agent was used for oropharangeal anesthesia. A bite block was inserted. Sedation was managed by anesthesiologist; see anesthesiology notes for details. The patient was brought to the [facility] in a fasting state. A 2D transesophageal echocardiogram with spectral and color flow Doppler was performed. The patient was in normal sinus rhythm during the exam. There were no complications. Left Ventricle: The left ventricle is normal in size, wall thickness, and systolic function without any focal wall motion abnormalities. Right Ventricle: The right ventricle grossly appears normal in size with probable normal systolic function. There is a pacemaker lead in the right ventricle. This is only moderately well seen but no obvious vegetation is identified. Atria: There is a catheter/pacemaker lead seen in the right atrium. This is only poorly seen but no obvious vegetation is identified. Mitral Valve: The mitral valve is normal. There is no vegetation seen on the mitral valve. There is no mitral regurgitation noted. Aortic Valve: The aortic valve is normal in structure and function. The aortic valve opens well. There is no aortic valvular vegetation. There is trace aortic regurgitation. Tricuspid Valve: The tricuspid valve is not well visualized, but is grossly normal. There is no tricuspid valve vegetation. No tricuspid regurgitation. Pulmonic Valve: The pulmonic valve is not well visualized. There is no vegetation on the pulmonic valve. There is no significant valvular heart disease. There is no obvious valvular vegetation identified on this exam. Great Vessels: Moderate atherosclerotic plaque(s) in the descending aorta. Mobile mural thrombus (thrombi) in descending aorta. Reading Physician:02:41 PM
--- NOTE | 2017-07-12 14:52 | NUR ---
POST HOSPITAL FOLLOW UP: Scheduled patient appointment with on 08/01/17 check in at 8am for 815am appointment. Updated PUBLIC AID ELIGIBILITY ASSISTANT
--- NOTE | 2017-07-12 15:05 | NUR ---
Report given to Kallie Hurst at time of transfer.
--- NOTE | 2017-07-12 16:11 | PROG NOTE ---
[address] [address] PROGRESS NOTE PATIENT: AMELIE CEDEÑO : 1945 MR#: [id number] ADMIT: 07/07/2017 JOB ID: [id number] DATE: 07/12/2017 REASON FOR FOLLOWUP: High-grade MSSA bacteremia in a patient with an indwelling pacer. INTERVAL HISTORY: The patient once again this afternoon states that she feels " fine." Fine is given as the answer to most all questions and she denies ongoing fevers, chills, sweats, cough, or abdominal pain. She states she would like to be put up in a chair as it would be more comfortable for her and that she would like a Pepsi. Otherwise, she has no specific requests or complaints. PHYSICAL EXAMINATION: Reveals an afebrile woman. Temp 36.8, pulse 63, respiratory rate 16, blood pressure 144/69. She is saturating well on room air. She is in no distress. Lungs relatively clear. Cardiac tones without new murmur. Abdomen soft and nontender. No peripheral stigmata of endocarditis. LABORATORIES: Include white count 13,000, which is relatively constant. Creatinine 4.24. Those numbers are two days old now. With respect to her micro, her blood cultures from yesterday remain negative at 24 hours. The blood cultures previous to that, on the , all grew MSSA. I discussed the transesophageal echocardiogram that was done a couple hours ago in great detail with Dr. Vega of Cardiology. There were no obvious valvular lesions and the pacer wires appear free of vegetation or infection, but the patient did have some odd atherosclerotic plaques in the descending aorta, some of which were associated with some mobile masses which appeared to be thrombus or vegetation. IMPRESSION: This is a complex case of an elderly woman with some underlying dementia, as well as psychiatric and medical problems, who continues to have a somewhat difficult time supplying much in the way of medical history. She had suffered a multi-day, high-grade methicillin-sensitive Staphylococcus aureus bacteremia in the presence of a pacer, and now we have also discovered that she has aortic plaques and maybe even aortic thrombi and/or vegetations. I think that in this case, six weeks of IV antibiotics aimed at the MSSA are absolutely indicated. RECOMMENDATIONS: 1. We await the followup blood cultures from the . If those remain negative for a couple more days, I think we can start to prepare the patient for discharge. If, on the other hand, additional blood cultures turn positive from the , then will need to get new blood cultures and in turn monitor those for at least a couple days to make sure we have sterile blood cultures before we consider discharge. 2. The antibiotics will consist of cefazolin in this 2 g/2 g/3 g configuration to be given for a total of six weeks. 3. The cefazolin can conveniently be given with dialysis, so the patient will not require any kind a PICC or an additional instrumentation. 4. About one week after the conclusion of the full six weeks of cefazolin, I would repeat blood cultures. Ordinarily this is not done, but in this case, I am sufficiently worried about possible pacer infection and/or aortic wall infection that I think the blood cultures a week or so after the conclusion of six weeks of antibiotics are indicated to make sure that we completely clear the bacteremia. 5. This case was discussed in detail with the hospitalist, as well as with Dr. Vega of Cardiology.
--- NOTE | 2017-07-12 17:11 | NUR ---
Social Work: Continued Discharge Planning/Multidisciplinary Rounds D: EMR reviewed. Pt is on day 5 of hospitalization. Pt discussed in multidisciplinary rounds and is not medically stable for discharge at this time, anticipate 2-3 more days pending ID and PT. Per MD, pt is not appropriate for PT evaluation at this time, MD to order after pt progresses. Pt may need SNF at time of discharge. Pt's son is agreeable to SNF if medically necessary but hopeful pt can return home. Pt receives dialysis at [facility] /. SW will continue to follow for possible SNF or IVABX needs at discharge. KRISTIN received MD order to coordinate PCP. Air Bag Buffer scheduled appointment with Dr. Forest Juan at [facility] on 08/01 at 0800. SW confirmed appointment with pt's son and left appointment card taped on white board in room - son agreeable. SW discussed possible needs for pt to go to SNF at discharge - pt's son would like pt to return home if possible but is willing and agreeable to SNF if medically necessary. KRISTIN confirmed that SW will coordinate with son once care plan is further established by ID and MD. Pt's son stated he would like pt to go to [facility] is MD orders SNF. A: Pt who is not independent at baseline and does require minimal assistance with self-care. Pt has Dementia at baseline. P: Evolving; pt prognosis pending ID and MD. SW to follow to determine if pt will require SNF at discharge for administration of ABX and skilled rehab for PT weakness or if pt will progress and be able to return home. KRISTIN updated pt's son with PCP appointment information and confirmed that SW will tape appointment card to pt's board in room. SW will continue to follow for discharge plan. LEON Davies
--- NOTE | 2017-07-12 19:30 | NUR ---
delerium pt still having some confusion, saying things like "put me back to bed" when she's in bed, "When am I going to the hospital". Pt had slight fever this am 99.5 F
--- NOTE | 2017-07-12 19:35 | NUR ---
refused Heparin 'I'm not taking anymore shots. I've already had too many." Was explained to her why Heparin was important. She was started on Plavix which she did take tonight
[2017-07-13] VITALS (9 sets, daily range): BP systolic 99–137; BP diastolic 52–70; PULSE 61–93; RESP 16–20; O2SAT 92–98
[2017-07-13] MEDS: Heparin 5,000 Unit/mL Inj SUBQ SCH ×3 (01:24→17:10)
[2017-07-13] MEDS: Sucralfate 1,000 mg Tablet PO SCH ×2 (08:59→22:14)
--- NOTE | 2017-07-13 09:11 | PCM.PNMED ---
Subjective Date of Service Jul 13, 2017 Subjective Patient is in the bed. Looks better today, repeat blood cultures negative for growth. ARTI yesterday showed Multiple moderate atherosclerotic plaques are identified in the descending aorta, some with associated peduculated mobile masses that most likely represent associated thrombus. I discussed it with liquid hydrogen plant operator Dr. Vega, he advised to start the patient on Plavix and statin. I also discussed plan of care with ID doctor Ck, patient will need at least 4 weeks of IV antibiotics with further infectious disease follow-up. Exam Vital Signs Vital Sign - Last Date Time Temp Pulse Resp B/P Pulse Ox O2 Delivery O2 Flow Rate FiO2 07/13/17 05:52 61 07/13/17 04:30 Supplement Oxygen 07/13/17 04:15 36.6 19 137/70 95 07/12/17 14:11 1.00 Intake and Output 07/12/17 07/12/17 07/13/17 Cumulative From/Thru 15:00 23:00 07:00 07/07/17 20:02 - 07/13/17 05:43 Intake Total 378 ml 125 ml 4757 ml Output Total 0 ml 0 ml 2362 ml Balance 378 ml 125 ml 2395 ml Intake Oral 378 ml 125 ml 2926 ml IV Total 1831 ml Output Urine Total 0 ml 0 ml 362 ml Ultrafiltrate 2000 ml # Voids 2 # Bowel Movements 0 0 2 Exam GENERAL: Alert, not in distress, cooperative HEAD: atraumatic, normocephalic, no bruises. EYES: JASMIN, EOMI, anicteric, able to fully open and close eyelids SKIN: Skin color normal, turgor normal. No visible rashes or lesions. EAR, NOSE, MOUTH, THROAT: Lips, oral mucosa, tongue gums, oropharynx are moist , pink, no lesions. Ears normal appearance, no lesions. NECK: no jugulovenous distention; supple ROM normal. RESPIRATORY: Lungs clear to auscultation. Good diaphragmatic excursion. CARDIAC: normal S1 and S2; no rubs, murmurs, or gallops; regular rate and rhythm ABDOMEN: Abdomen soft, non-tender. BS normal. No masses or organomegaly. MUSCULOSKELETAL: ROM full, muscles are not tender EXTREMITIES: no pitting edema in LE, no new deformities or skin discoloration. NEURO: Alert, oriented X 2, Sensation grossly intact., Cranial nerves II-XII intact, Grossly normal motor function. PULSES: 2+ radial, 2+ carotid REVIEW OF SYSTEMS: GENERAL: no malaise, no fevers., SEE HPI HEENT: Negative for frequent or significant headaches All other reviewed and negative other than HPI. IVs and Medications Medications Reviewed: Medications were reviewed in detail Lab and Diagnostics Result Diagram: 07/10/17 0707/10/17 07 Microbiology Blood Cultures Pending Urine Culture Pending X-Rays, CTs and MRIs PROCEDURE: X-RAY CHEST ONE VIEW, PORTABLE IMPRESSION: No acute pulmonary process. PROCEDURE: CT BRAIN WITHOUT CONTRAST IMPRESSION: 1. No acute intracranial process. 2. Moderate atrophy and chronic microvascular ischemic changes. ARTI Interpretation Summary The left ventricle is normal in size, wall thickness, and systolic function without any focal wall motion abnormalities. The right ventricle grossly appears normal in size with probable normal systolic function. There is a pacemaker lead in the right ventricle that is only moderately well seen but no obvious vegetation is identified. There is a catheter/pacemaker lead seen in the right atrium that is only poorly seen but no obvious vegetation is identified. There is no significant valvular heart disease and specifically, no obvious valvular vegetation identified on this exam. Multiple moderate atherosclerotic plaques are identified in the descending aorta, some with associated peduculated mobile masses that most likely represent associated thrombus. Consider anticoagulation with clopidogrel and statin therapy if clinically appropriate. 12-lead ECG Atrial Paced Complexes HR 74 Assessment & Plan Patient is a 71 y/o female with past medical history of CVA, ESRD on T ,Th,Sat Dialysis, HTN, pacemaker, dementia, and bipolar disorder who presents after increased weakness and confusion. Patient was diagnosed with MSSA bacteremia, ID was consulted. She developed upper extr pitting edema more pronounced on the right where AV fistula is located. Ultrasound of the both upper extremities was negative for clots. Repeat bacterial cultures were positive for staph aureus. Etl Bi Developer Dr. Vega did ARTI which showed Multiple moderate atherosclerotic plaques are identified in the descending, aorta, some withassociated peduculated mobile masses that most likely represent associated thrombus. Dr. Vega advised to start the patient on Plavix and Lipitor. Sepsis, POA. Metabolic versus toxic encephalopathy. Bacteremia with MSSA , probably infected hemodialysis catheter - stable, not under control - Follow up cultures - ID consulted - cardiology consulted, did ARTI which showed Multiple moderate atherosclerotic plaques are identified in the descending, aorta, some withassociated peduculated mobile masses that most likely represent associated thrombus. Dr. Vega advised to start the patient on Plavix and Lipitor. Plan -Continue with cefazolin - start Plavix, Lipitor Upper extr edema more on the R where AV fistula is located - Improved - US of the upper extr did not show clots or AVF thrombosis - Elevate both arms. ESRD requiring Dialysis T,Th,Sat - Stable - Nephrology on the case Plan - Renal dose antibiotics as above - Monitor I&Os - Continue with Dialysis Anemia of chronic disease + ESRD - stable - monitor Acute Hypercalcemia - Improved Hypertension - BP on the lower side - Continue to hold home meds Chronic Bipolar Disorder - Hold home meds for now DVT PROPHYLAXIS: Heparin Code status:full code Disposition: discharge after patient improves. Plan of care discussed with treatment team, patient; Labs, radiology tests reviewed. VTE Prophylaxis: SCDs VTE Mechanical Devices: Intermittant Pneumatic CD Resuscitation Status: CPR: Attempt Resuscitation Leif Louie MD Jul 13, 2017 09:11
--- NOTE | 2017-07-13 10:45 | NUR ---
TRANSFER OFF FLOOR TO DIALYSIS Patient offered bed christie. Gave thickened orange juice prior to transport. IV saline locked. Took patient up to room 244 in hospital bed with help of PUNCH OPERATOR. Report given to RN at bedside.
--- NOTE | 2017-07-13 10:55 | NUR ---
Transfer for dialysis Patient arrived in hospital bed to room 244-1. Alert , oriented to person, place. Requesting drink. Given honey thickened apple juice. parks and recreation worker at bedside. Report received from primary RN, Jared Sung RN informed burner technician of transfer. Addendum: 07/13/17 at 1501 by HUBERT BURNETT RN Dialysis complete. Report given to Jared Malik RN. Transported off unit in hospital bed.
[2017-07-13] MEDS ORDERED: .Epic Conversion Completed XX PRN (12:40)
[2017-07-13] MEDS ORDERED: CeFAZolin Inj 3 GM in IV Premix 1 EACH IV SCH (13:00)
--- NOTE | 2017-07-13 13:33 | PCM.PNNEPH ---
Subjective Date of Service Jul 13, 2017 Subjective Patient has less swelling on her right arm. I have requested her nurse to elevate her right arm. Patient is now seen during hemodialysis. According to dialysis nurse, there was no difficulty cannulating her AV fistula. Blood flow today is 250. Venous and arterial pressures were within normal limit. Negative blood culture reported on July 11. ARTI was performed yesterday revealing normal EF, no obvious vegetation and no significant valvular heart disease. Multiple moderate atherosclerotic plaques are identified in the descending aorta , some with associated peduculated mobile masses that most likely represent associated thrombus. Consider anticoagulation with clopidogrel and statin therapy if clinically appropriate. Exam Vital Signs Vital Sign - Last Date Time Temp Pulse Resp B/P Pulse Ox O2 Delivery O2 Flow Rate FiO2 07/13/17 10:56 75 07/13/17 04:30 Supplement Oxygen 07/13/17 04:15 36.6 19 137/70 95 07/12/17 14:11 1.00 Intake and Output 07/12/17 07/12/17 07/13/17 Cumulative From/Thru 15:00 23:00 07:00 07/07/17 20:02 - 07/13/17 05:43 Intake Total 378 ml 125 ml 4757 ml Output Total 0 ml 0 ml 2362 ml Balance 378 ml 125 ml 2395 ml Intake Oral 378 ml 125 ml 2926 ml IV Total 1831 ml Output Urine Total 0 ml 0 ml 362 ml Ultrafiltrate 2000 ml # Voids 2 # Bowel Movements 0 0 2 Exam General appearance: more awake and talkative today, responsive to verbal stimuli. HEENT: Atraumatic. Mild pallor. No icteric sclerae. No JVD. No lymphadenopathy. No thyroid enlargement. Heart: Regular rhythm. Normal S1, S2. No murmurs, rubs, or gallops. Chest: CTA, B/L. pacemaker in place- no swelling, no redness, no fluid collection. Abdomen: Soft, nontender, nondistended. No hepatosplenomegaly. Extremities: Good pedal pulses bilaterally. Right arm AVF with good thrill and bruits. (+) bruises and less UE swelling. Lab and Diagnostics Result Diagram: 07/10/17 0702 07/10/17 0702 Microbiology Blood Cultures Pending Urine Culture Pending X-Rays, CTs and MRIs PROCEDURE: X-RAY CHEST ONE VIEW, PORTABLE IMPRESSION: No acute pulmonary process. PROCEDURE: CT BRAIN WITHOUT CONTRAST IMPRESSION: 1. No acute intracranial process. 2. Moderate atrophy and chronic microvascular ischemic changes. ARTI Interpretation Summary The left ventricle is normal in size, wall thickness, and systolic function without any focal wall motion abnormalities. The right ventricle grossly appears normal in size with probable normal systolic function. There is a pacemaker lead in the right ventricle that is only moderately well seen but no obvious vegetation is identified. There is a catheter/pacemaker lead seen in the right atrium that is only poorly seen but no obvious vegetation is identified. There is no significant valvular heart disease and specifically, no obvious valvular vegetation identified on this exam. Multiple moderate atherosclerotic plaques are identified in the descending aorta, some with associated peduculated mobile masses that most likely represent associated thrombus. Consider anticoagulation with clopidogrel and statin therapy if clinically appropriate. 12-lead ECG Atrial Paced Complexes HR 74 Plan Impression 1. MSSA bacteremia secondary to HD cath, s/p removal. - ARTI shows no obvious vegetation. 2. Altered mental status secondary to metabolic encephalopathy in the setting of sepsis. improving. 3. End-stage renal disease, secondary to chronic interstitial nephritis from lithium use. 4. Right arm swelling, sonogram reports no obvious stenosis. Swelling has improved after we have elevated at her right arm. 5. Renal osteodystrophy. 6. Bipolar disorder. 7. s/p pace maker placement. 8. Multiple moderate atherosclerotic plaques in the descending aorta with peduculated mobile masses, possibly thrombus. - Plavix was started per cardiology recommendation PLAN: - According to dialysis nurse, there was no difficulty cannulating her AV fistula. Blood flow rate today is 250 mL/min. Venous and arterial pressures were within normal limit. Swelling has improved after we have elevated at her right arm. We will hold further investigation for now. - IV Cefazolin 2/2/3 gm with HD total of 6 weeks per ID recommendation. - Next hemodialysis on Saturday. - Continue to elevate her right arm. Danielle Rodgers MD Jul 13, 2017 13:33
--- NOTE | 2017-07-13 14:45 | NUR ---
Dialysis note: 3 1/2 hrs tx 2000 ml net UF JEANNE fistula, accessed using 17 g needles w/ no problems Pls see DTR for VS details Qb 250 Heparin given O2 @ 2L via NC on during tx Tolerated treatment, slept at intervals Fistula needle sites clotted w/in 10 min Stable condition at end of tx Report given to Dayna SCHAFFER
--- NOTE | 2017-07-13 17:39 | NUR ---
MENTATION Patient's cognition is clearing. Alert and oriented x3 when asking orientation questions. Able to verbalize needs and use call light. Patient's received IV abx after dialysis today. Patient is still experiencing generalized weakness. When asked to move and extend her arms, she stated "they're stiff." PEr son @ baseline patient ambulates short distances at home with walker at times. PT eval and treat order was received.
--- NOTE | 2017-07-14 17:01 | DRSVH ---
PROCEDURE: US DUPLEX DOPPLER OF DIALYSIS SHUNT ([id number]) INDICATIONS: [place] R arm TECHNIQUE: Color and pulse Doppler interrogation was performed of the upper extremity arteriovenous fistula, wit h image documentation. COMPARISON: None. FINDINGS: [place] vessel inflow: 175 cm/sec. Proximal fistula anastomosis: 750 cm/sec. Mid fistula: 80 cm/sec. [place] vessel outflow: 200 cm/sec. Intraluminal thrombus: None. Fistula diameter: 4.8 mm. Volume of flow: 0.91 L per minute IMPRESSION: Apparent hemodynamically significant stenosis involving the arterial venous anastomosis with velociti es elevated to 750 cm/s. If indicated, diagnostic fistulogram could be performed with possible inter vention if indicated. Dictated by: Obdulio COLLIER Interpreted: Sneha Panchal MD on 07/12/2017 at 13:21 Approved by: Sneha Panchal M.D. on 07/14/2017 at 16:59
== END 2017-07-14 01:25 | disposition admitted as inpatient to this hospital (09) | DRG 314 ==
LOC: SED 19:59 → OSC 23:40
PROVIDERS: ADMIT Hospitalist; ATTEND Internal Medicine
DX: T82.7XXA Infection and inflammatory reaction due to other cardiac and vascular devices, implants and grafts, initial encounter (principal); N18.6 End stage renal disease; G93.41 Metabolic encephalopathy; A41.01 Sepsis due to Methicillin susceptible Staphylococcus aureus; N39.0 Urinary tract infection, site not specified; Z99.2 Dependence on renal dialysis